=== PATIENT | male | born 1995 | race Caucasian/White ===

== ENCOUNTER 2017-02-05 22:07 | Emergency (ER) | payer MEDICARE, MEDICAID ==
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
[2017-02-05 22:28] VITALS: BP 163/90
[2017-02-05] MEDS ORDERED: Ibuprofen 600 MG Tab PO ONE (22:40)
== END 2017-02-05 23:00 | disposition home or self-care (01) ==
LOC: LL.ED 22:07
DX: H66.92 Otitis media, unspecified, left ear (principal); H72.02 Central perforation of tympanic membrane, left ear; E66.09 Other obesity due to excess calories; E03.9 Hypothyroidism, unspecified; F84.0 Autistic disorder; F41.8 Other specified anxiety disorders; F17.210 Nicotine dependence, cigarettes, uncomplicated; Z71.6 Tobacco abuse counseling; Z98.890 Other specified postprocedural states; Z79.899 Other long term (current) drug therapy; Z88.5 Allergy status to narcotic agent; Z88.8 Allergy status to other drugs, medicaments and biological substances
CPT/HCPCS: 99282; 99283; A9270

== ENCOUNTER 2017-04-12 17:02 | Emergency (ER) | payer MEDICARE, MEDICAID ==
[2017-04-12 17:19] VITALS: BP 145/93
--- NOTE | 2017-04-12 17:46 | EDM.PDOC ---
ED HPI GENERAL MEDICAL PROBLEM - General Chief Complaint: General Stated Complaint: diaphoretic and dizzy after eating pizza Time Seen by Provider: 04/12/17 17:17 Source of Information: Reports: Patient, Family History Limitations: Reports: No Limitations - History of Present Illness INITIAL COMMENTS - FREE TEXT/NARRATIVE: Patient complained of feeling hot/sweaty, dizzy after going out for walk (82 degrees outside) and included hill work. Also had pizza around this time. Said he was not feeling good. Parents brought him in for evaluation. Patient has history that includes autism, obesity, and emotional problems. Has had panic attacks in past. He is not certain, but feels that there may have been some panic involved with this afternoon's episode. He was roomed and had a chance to lay down in the bed and rest for awhile prior to evaluation. By the time I was able to interview him, he pronounced himself better and said all symptoms had resolved. He attributed feeling better to getting a chance to rest for a bit in the bed. Patient at this time had no complaints. He remarked that he thought he got overheated outside, especially with trying to walk up the hills. Bilateral Leg Pain Score (Numeric/FACES): 3 - Related Data Allergies Allergy/AdvReac Type Severity Reaction Status Date / Time cefazolin sodium [From [facility]] Allergy Rash Verified 04/12/17 17:03 codeine Allergy Hyperactivi Verified 04/12/17 17:03 ty Home Meds: Home Meds RX: Levothyroxine [Synthroid] 50 mcg PO ACBRK #30 tab 01/29/14 [Rx] RX: Prazosin [Minpress] 1 mg PO BEDTIME PRN 01/29/14 [History] RX: Escitalopram [Lexapro] 20 mg PO DAILY 02/05/17 [History] RX: LORazepam 0.5 mg PO ASDIRECTED PRN 02/05/17 [History] RX: Pediatric Multivit Comb No.136 [Children Multivitamin] 1 tab PO DAILY [History] Past Medical History HEENT History: Reports: Otitis Media, Other (See Below) Other HEENT History: Chronic recurrent bilateral otitis media with history of chronic left-sided TM perforation Cardiovascular History: Reports: Other (See Below) Other Cardiovascular History: Obesity with fatty liver Gastrointestinal History: Reports: Cholelithiasis, Other (See Below) Other Gastrointestinal History: Fatty liver by ultrasound, nonsymptomatic cholelithiasis/sludge Musculoskeletal History: Reports: Arthritis Neurological History: Reports: Headaches, Chronic, Other (See Below) Other Neuro History: Chronic tension headaches Psychiatric History: Reports: ADHD, Anxiety, Autism, Depression, Emotional Problems, Other (See Below) Other Psychiatric History: Autism with mental deficits/mild retardation Endocrine/Metabolic History: Reports: Hypothyroidism, Obesity/BMI 30+ - Past Surgical History HEENT Surgical History: Reports: Adenoidectomy, Eye Surgery, Myringotomy w Tube( s), Naso-Sinus Surgery, Tonsillectomy, Other (See Below) Other HEENT Surgeries/Procedures: Chronic left-sided TM perforation with recurrent otitis media including borderline sepsis, bilateral PE tubes, tonsillectomy and adenoidectomy in latexer, nasal/sinus surgery with possible cauterization secondary to snoring in latexer, strabismus correction in latexer Cardiovascular Surgical History: Reports: None - Past Imaging History Past Imaging History: Reports: Ultrasound (Abdominal ultrasound on 07/23/15) Social & Family History - Tobacco Use Smoking Status *Q: Current Every Day Smoker Years of Tobacco use: 4 Packs/Tins Daily: 1 Used Tobacco, but Quit: No Second Hand Smoke Exposure: Yes - Caffeine Use Caffeine Use: Reports: Soda Caffeine Use Comment: soda - Alcohol Use Days Per Week of Alcohol Use: 1 Number of Drinks Per Day: 0 Total Drinks Per Week: 0 - Recreational Drug Use Recreational Drug Use: No Drug Use in Last 12 Months: No ED ROS GENERAL - Review of Systems Review Of Systems: See Below Constitutional: Reports: Diaphoresis (resolved), Other (felt hot). Denies: Fever, Chills, Malaise, Weakness, Fatigue, Night Sweats, Decreased Appetite, Weight Loss, Weight Gain HEENT: Reports: No Symptoms Respiratory: Reports: No Symptoms Cardiovascular: Reports: Lightheadedness. Denies: Chest Pain, Dyspnea on Exertion, Edema, Palpitations, Syncope GI/Abdominal: Reports: No Symptoms. Denies: Nausea, Vomiting : Reports: No Symptoms Musculoskeletal: Reports: Leg Pain (mild bilateral leg discomfort) Skin: Reports: No Symptoms Neurological: Reports: Dizziness. Denies: Confusion, Headache, Numbness, Paresthesia, Syncope, Trouble Speaking, Difficulty Walking, Weakness Psychiatric: Reports: Anxiety (when not feeling well) Hematologic/Lymphatic: Reports: No Symptoms ED EXAM, GENERAL - Physical Exam Exam: See Below Exam Limited By: No Limitations General Appearance: Alert, No Apparent Distress, Obese Eye Exam: Bilateral Eye: EOMI, PERRL Ears: Normal External Exam, Normal Canal, Hearing Grossly Normal, Normal TMs Nose: Normal Inspection, Normal Mucosa, No Blood Throat/Mouth: Normal Inspection, Normal Lips, Normal Teeth, Normal Oropharynx, Normal Voice, No Airway Compromise Head: Atraumatic, Normocephalic Neck: Normal Inspection, Supple, Non-Tender, Full Range of Motion Respiratory/Chest: No Respiratory Distress, Lungs Clear, Normal Breath Sounds, No Accessory Muscle Use, Chest Non-Tender Cardiovascular: Normal Peripheral Pulses, Regular Rate, Rhythm, No Edema, No JVD , No Murmur, No Rub Peripheral Pulses: 2+: Radial (L), Radial (R) GI/Abdominal: Normal Bowel Sounds, Soft, Non-Tender, No Distention (Male) Exam: Deferred Rectal (Males) Exam: Deferred Back Exam: Normal Inspection Extremities: Normal Inspection, Normal Range of Motion, Non-Tender, Normal Capillary Refill Neurological: Alert, Oriented, Normal Cognition, Normal Gait, No Motor/Sensory Deficits Psychiatric: Normal Affect, Normal Mood Skin Exam: Warm, Dry, Intact, Normal Color Course - Vital Signs Last Recorded V/S: Last Vital Signs Temp 37.0 C 04/12/17 17:04 Pulse 98 04/12/17 17:19 Resp 20 04/12/17 17:19 BP 145/93 H 04/12/17 17:19 Pulse Ox 97 04/12/17 17:19 - Re-Assessments/Exams Free Text/Narrative Re-Assessment/Exam: Normal exam. No focal findings. Patient continued to say that he felt well and that he wished to go home. Episode may have been due to excessive walking/exercise in the heat. Cannot rule out early prodrome for an illness such as viral infection. Anxiety may have been a component. Parents agree to follow up as needed if they notice any concerning changes or new symptoms. No further intervention at this time. Departure - Departure Time of Disposition: 17:45 Disposition: Home, Self-Care 01 Condition: Good Clinical Impression: Anxiety - Discharge Information Referrals: Alida Castellanos NP [Primary Care Provider] - Forms: ED Department Discharge Additional Instructions: Follow up as needed. Drink plenty of water at home and stay cool for the rest of the day!
== END 2017-04-12 17:52 | disposition home or self-care (01) ==
LOC: SUPCPDRO 17:02 → LL.ED 17:02
DX: F41.9 Anxiety disorder, unspecified (principal); F17.210 Nicotine dependence, cigarettes, uncomplicated; M19.90 Unspecified osteoarthritis, unspecified site; F90.9 Attention-deficit hyperactivity disorder, unspecified type; F32.9 Major depressive disorder, single episode, unspecified; E03.9 Hypothyroidism, unspecified; E66.9 Obesity, unspecified; Z88.5 Allergy status to narcotic agent; Z88.8 Allergy status to other drugs, medicaments and biological substances; Z90.89 Acquired absence of other organs; Z96.22 Myringotomy tube(s) status
CPT/HCPCS: 99283

== ENCOUNTER 2017-05-20 03:21 | Emergency (ER) | payer MEDICARE, MEDICAID ==
--- NOTE | 2017-05-20 03:50 | EDM.PDOC ---
ED HPI GENERAL MEDICAL PROBLEM - General Chief Complaint: General Stated Complaint: shortness of breath, chest pain, cough Time Seen by Provider: 05/20/17 03:45 Source of Information: Reports: Patient, Family (Mother), Old Records ([facility] chart/EMR) History Limitations: Reports: Altered Mental Status (Autism) - History of Present Illness INITIAL COMMENTS - FREE TEXT/NARRATIVE: Patient was brought to the emergency room via private automobile by his mother for evaluation of progressive moderately clear productive cough with symptoms starting at about 1 AM on 05/18. He denies any known exposure to infection, however has not yet had his influenza booster this season. Symptoms have been refractory to multiple OTC medications, including cough medicine, decongestant, and Chloraseptic [place]. He has had some mild sore throat. No history of previous pulmonary problems, including asthma, etc. and he denies any recent history of wheezing, dyspnea, etc. No recent history of abdominal pain, heartburn, nausea, diarrhea, melena, gross hematochezia, or any food intolerance , including fatty foods, etc.. He has had some nonspecific right-sided chest wall pain mainly with coughing but no true pleurisy Onset: Gradual Onset Date: 05/18/17 Duration: Constant, Getting Worse Location: Reports: Chest (Chest wall pain as above) Quality: Reports: Sharp Severity: Severe Improves with: Reports: Rest Worsens with: Reports: Movement (Coughing) Context: Reports: Other (As above). Denies: Sick Contact Associated Symptoms: Reports: Chest Pain (As above), Cough (As above), cough w sputum (Clear). 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 Denies: Acetaminophen, NSAIDS ( As above) chest pain Pain Score (Numeric/FACES): 10 - Related Data Allergies Allergy/AdvReac Type Severity Reaction Status Date / Time cefazolin sodium [From Anc] Allergy Rash Verified 05/20/17 03:24 codeine Allergy Hyperactivi Verified 05/20/17 03:24 ty Home Meds: Home Meds Levothyroxine [Synthroid] 50 mcg PO ACBRK #30 tab 01/29/14 [Rx] Prazosin [Minpress] 1 mg PO BEDTIME PRN 01/29/14 [History] Escitalopram [Lexapro] 20 mg PO DAILY 02/05/17 [History] LORazepam 0.5 mg PO ASDIRECTED PRN 02/05/17 [History] Pediatric Multivit Comb No.136 [Children Multivitamin] 1 tab PO DAILY 02/05/17 [ History] Amoxicillin/Potassium Clav [Augmentin 875-125 Tablet] 1 each PO BIDMEALS #20 tablet 05/20/17 [Rx] Dextromethorphan/guaiFENesin [Mucinex DM ER 600-30 MG] 1 tab PO BID #20 tab.er 05/20/17 [Rx] Naproxen 500 mg PO Q6HR PRN 05/20/17 [History] Pseudoephedrine HCl [Nasal Decongestant] 30 mg PO BID PRN 05/20/17 [History] Past Medical History HEENT History: Reports: Allergic Rhinitis, Hard of Hearing, Otitis Media, Other (See Below). Denies: Retinal Detachment Other HEENT History: Chronic recurrent bilateral otitis media with history of chronic left-sided TM perforation with sensitivity to loud noises and some left- sided hearing loss however no hearing aide therapy, left-sided mastoiditis on 29/06 with no surgery required Cardiovascular History: Reports: None. Denies: Aneurysm, Arrhythmia, Blood Clots/VTE/DVT, High Cholesterol, Hypertension, Syncope Other Cardiovascular History: Obesity with fatty liver Respiratory History: Reports: None. Denies: Asthma, Bronchitis, Recurrent, COPD , Intubation, Previous, PE, Pneumonia, Recurrent, Pneumothorax, Sleep Apnea Gastrointestinal History: Reports: Cholelithiasis, Other (See Below). Denies: Celiac Disease, Chronic Constipation, Chronic Diarrhea, Fecal Incontinence, Gastritis, GERD, GI Bleed, Hepatitis, Hiatal Hernia, Jaundice, Pancreatitis, PUD Other Gastrointestinal History: Fatty liver by ultrasound, nonsymptomatic cholelithiasis/sludge Genitourinary History: Reports: None. Denies: Acute Renal Failure, BPH, Chronic Renal Insuffiency, Renal Calculus, STD, Urinary Incontinence Musculoskeletal History: Reports: Arthritis, Fracture, Gout, Other (See Below). Denies: Back Pain, Chronic, Osteoarthritis, RA, SLE Other Musculoskeletal History: Right fifth metatarsal fracture on 01/11/10 Neurological History: Reports: Headaches, Chronic, Other (See Below). Denies: Cerebral Aneurysms, Concussion, Head Trauma, Migraines, Neuropathy, Peripheral, Seizure, Speech Problems, TIA Other Neuro History: Chronic tension headaches, autism Psychiatric History: Reports: ADHD, Anxiety, Autism, Depression, Emotional Problems, Psych Hospitalization(s), Suicide Attempt, Suicidal Ideation, Other ( See Below). Denies: Abuse, Victim of, Addiction, PTSD Other Psychiatric History: Autism with mental deficits/mild retardation, prazosin therapy for nightmares seldom required; history of suicidal ideation and attempt on 09/29/11 with inpatient psychiatric care Endocrine/Metabolic History: Reports: Hypothyroidism, Obesity/BMI 30+. Denies: Diabetes, Type I, Diabetes, Type II, IDDM Hematologic History: Reports: None. Denies: Anemia, Blood Transfusion(s), Iron Deficiency Immunologic History: Reports: None. Denies: AIDS, HIV, SLE Oncologic (Cancer) History: Reports: None. Denies: Basal Cell Carcinoma, Hodgkin's Lymphoma, Leukemia, Lymphoma, Malignant Melanoma, Non-Hodgkin's Lymphoma, Squamous Cell Carcinoma Dermatologic History: Reports: None. Denies: Eczema, Psoriasis - Infectious Disease History Infectious Disease History: Reports: Chicken Pox. Denies: C-Difficile, Measles , Meningitis, Mononucleosis, MRSA, Mumps, Pertussis (Whooping Cough), Rheumatic Fever, RSV, Rubella, Scarlet Fever, Shingles, VRE - Past Surgical History Head Surgeries/Procedures: Reports: None HEENT Surgical History: Reports: Adenoidectomy, Eye Surgery, Myringotomy w Tube( s), Naso-Sinus Surgery, Oral Surgery, Tonsillectomy, Other (See Below). Denies : Laser Surgery, LASIK Other HEENT Surgeries/Procedures: Chronic left-sided TM perforation with recurrent otitis media including borderline sepsis, bilateral PE tubes 3 in bonsai tender, tonsillectomy and adenoidectomy in bonsai tender, nasal/ sinus surgery with possible cauterization secondary to snoring in bonsai tender, strabismus correction in bonsai tender, [place] teeth extraction Cardiovascular Surgical History: Reports: None. Denies: Varicose Respiratory Surgical History: Reports: None. Denies: Thoracentesis GI Surgical History: Reports: None. Denies: Appendectomy, Cholecystectomy, Hernia, Abdominal, Hernia, Inguinal, Hernia Repair/Other Male Surgical History: Reports: Circumcision, Other (See Below). Denies: Vasectomy Other Male Surgeries/Procedures: Circumcision as an Endocrine Surgical History: Reports: None. Denies: Thyroid Biopsy Neurological Surgical History: Reports: None. Denies: C-Spine, Discectomy, Laminectomy, Lumbar Spine, Spinal Fusion, Vertebroplasty Musculoskeletal Surgical History: Denies: Arthroscopic Procedure, Carpal Tunnel , Ganglion Cyst, Joint Replacement, ORIF, Shoulder Surgery Oncologic Surgical History: Reports: None Dermatological Surgical History: Reports: None - Past Imaging History Past Imaging History: Reports: CAT Scan (CT of the maxillofacial region on , CTA of the brain on 08/06/11), Ultrasound (Abdominal ultrasound on 07/23/15, renal ultrasound on 11/29/10) Social & Family History - Tobacco Use Smoking Status *Q: Current Every Day Smoker Years of Tobacco use: 4 Packs/Tins Daily: 1 Used Tobacco, but Quit: No Second Hand Smoke Exposure: Yes - Caffeine Use Caffeine Use: Reports: Soda (3 sodas per day). Denies: Coffee, Energy Drinks, Tea, Other - Alcohol Use Alcohol Use History: No Days Per Week of Alcohol Use: 0 (No previous DWIs, problems with alcohol abuse, etc.) Number of Drinks Per Day: 1 Total Drinks Per Week: 0 Alcohol Use Frequency: Rarely - Recreational Drug Use Recreational Drug Use: No Drug Use in Last 12 Months: No Recreational Drug Type: Denies: Amphetamines (Speed), Cocaine, Heroin, Inhalants (Glues, Solvents, Aerosols), LSD (Acid), Marijuana/Hashish, Methamphetamine - Living Situation & Occupation Living situation: Reports: Single (No children), Alone Occupation: Employed (Part-time at [employer]) ED ROS GENERAL - Review of Systems Review Of Systems: See Below Constitutional: Denies: Fever, Chills, Weakness, Fatigue, Night Sweats, Diaphoresis, Decreased Appetite, Weight Loss HEENT: Reports: Glasses, Rhinitis, Sinus Problem, Throat Pain. Denies: Contact Lenses, Ear Pain, Eye Discharge, Eye Pain, Hearing Loss, Throat Swelling, Vertigo, Vision Change Respiratory: Reports: Cough, Sputum (Mild clear), Other (Right chest wall pain with coughing). Denies: Shortness of Breath, Wheezing, Pleuritic Chest Pain, Hemoptysis Cardiovascular: Reports: Chest Pain (As above). Denies: Blood Pressure Problem , Claudication, Dyspnea on Exertion, Edema, Lightheadedness, Orthopnea, Palpitations, PND, Syncope Endocrine: Reports: No Symptoms. Denies: Fatigue GI/Abdominal: Reports: No Symptoms. Denies: Abdominal Pain, Anorexia, Black Stool, Bloody Stool, Constipation, Diarrhea, Decreased Appetite, Difficulty Swallowing, Distension, Hematemesis, Hematochezia, Melena, Mucous in Stool, Nausea, Stool Incontinence, Vomiting : Reports: No Symptoms. Denies: Dysuria, Flank Pain, Frequency, Hematuria, Incontinence, Urgency Musculoskeletal: Reports: No Symptoms. Denies: Neck Pain, Shoulder Pain, Arm Pain, Back Pain, Leg Pain Skin: Reports: No Symptoms. Denies: Diaphoresis, Wound Neurological: Reports: No Symptoms. Denies: Confusion, Dizziness, Headache, Numbness, Paresthesia, Tingling, Weakness Psychiatric: Reports: No Symptoms. Denies: Agitation, Anxiety, Confusion, Depression Hematologic/Lymphatic: Reports: No Symptoms Immunologic: Reports: No Symptoms ED EXAM, GENERAL - Physical Exam Exam: See Below Exam Limited By: No Limitations General Appearance: Alert, WD/WN, No Apparent Distress, Anxious (Mild) Eye Exam: Bilateral Eye: EOMI, Normal Inspection (No nystagmus), PERRL Ears: Normal External Exam, Normal Canal, Hearing Grossly Normal, Other (4 mm inferior left-sided TM perforation) Nose: Normal Mucosa, No Blood, Clear Rhinorrhea (Mild bilateral) Throat/Mouth: Normal Lips, Normal Teeth, Normal Gums, Normal Voice, No Airway Compromise. No: Normal Oropharynx (Trace erythema in the posterior pharynx), Dysphagia, Inflammation, Perioral Cyanosis Neck: Normal Inspection, Supple, Non-Tender, Full Range of Motion. No: Lymphadenopathy (L), Lymphadenopathy (R), Thyromegaly Respiratory/Chest: No Respiratory Distress, Lungs Clear, Normal Breath Sounds, No Accessory Muscle Use, Chest Non-Tender. No: Rhonchi, Wheezing, Pleural Rub, Retractions Cardiovascular: Normal Peripheral Pulses, Regular Rate, Rhythm, No Edema, No Gallop, No JVD, No Murmur, No Rub, Tachycardia (Occasional borderline especially when coughing). No: Gallop/S3, Gallop/S4, Friction Rub Peripheral Pulses: 2+: Radial (L), Radial (R) GI/Abdominal: Normal Bowel Sounds, Soft, Non-Tender, No Organomegaly, No Distention, No Abnormal Bruit, No Mass, Other (obesity) (Male) Exam: Deferred Rectal (Males) Exam: Deferred Back Exam: Normal Inspection, Full Range of Motion. No: CVA Tenderness (L), CVA Tenderness (R), Muscle Spasm Extremities: Normal Inspection, Normal Range of Motion, Non-Tender, No Pedal Edema, Normal Capillary Refill. No: Kaylynn's Sign Neurological: Alert, Oriented, CN II-XII Intact, Normal Cognition, Normal Gait, No Motor/Sensory Deficits Psychiatric: Normal Affect, Normal Mood Skin Exam: Warm, Dry, Intact, Normal Color, No Rash. No: Diaphoretic, Wound/ Incision Lymphatic: No Adenopathy Course - Vital Signs Last Recorded V/S: Last Vital Signs Temp 36.7 C 05/20/17 03:30 Pulse 87 05/20/17 04:49 Resp 21 H 05/20/17 04:49 BP 121/72 05/20/17 04:49 Pulse Ox 95 05/20/17 04:49 Vital Signs - 24 hr 05/20/17 05/20/17 05/20/17 03:30 03:45 03:57 Temperature [ 36.7 C Oral] Pulse, 90 98 100 Peripheral [ Right Pulse Oximetry] Respiratory 15 20 19 Rate Blood Pressure 138/78 123/70 139/71 [Right Upper Arm] O2 Sat by Pulse 95 94 L 95 Oximetry 05/20/17 05/20/17 05/20/17 04:17 04:25 04:49 Temperature [ Oral] Pulse, 92 88 87 Peripheral [ Right Pulse Oximetry] Respiratory 17 21 H 21 H Rate Blood Pressure 124/76 121/67 121/72 [Right Upper Arm] O2 Sat by Pulse 94 L 96 95 Oximetry - Orders/Labs/Meds Orders: Active Orders 24 hr Category Date Time Status Cardiac Monitoring [RC] . DIRECTED Care 05/20/17 03:45 Active Chest 2V [CR] Urgent Exams 05/20/17 03:52 Ordered CULTURE STREP A CONFIRMATION [RM] Stat Lab 05/20/17 03:49 Results STREP SCRN A RAPID W CULT CONF [RM] Stat Lab 05/20/17 03:49 Results Obtain Past Medical Record [OM.PC] Routine Oth 05/20/17 03:50 Active Labs: Laboratory Tests 05/20/17 05/20/17 Range/Units 04:10 04:10 WBC 13.7 H (4.0-10.2) K/uL RBC 5.36 (4.33-5.41) M/uL Hgb 14.6 D (13.1-16.8) g/dL Hct 43.1 (39.0-49.0) % MCV 80.4 L D (84.0-98.0) fL MCH 27.2 L (28.2-33.3) pg MCHC 33.9 (31.7-36.0) g/dL RDW 15.4 H (11.2-14.1) % Plt Count 200 (150-350) K/uL Neut % (Auto) 74.3 (45.0-80.0) % Lymph % (Auto) 17.5 (10.0-50.0) % Nuckolls % (Auto) 5.8 (2.0-14.0) % Eos % (Auto) 2.1 (0.0-5.0) % Baso % (Auto) 0.3 (0.0-2.0) % Neut # (Auto) 10.15 H (1.40-7.00) K/uL Lymph # (Auto) 2.40 (0.50-3.50) K/uL Nuckolls # (Auto) 0.80 (0.00-1.00) K/uL Eos # (Auto) 0.29 (0.00-0.50) K/uL Baso # (Auto) 0.04 (0.00-0.20) K/uL Sodium 139 (136-145) mmol/L Potassium 4.1 (3.5-5.1) mmol/L Chloride 103 (98-107) mmol/L Carbon Dioxide 26.6 (21.0-32.0) mmol/L BUN 13 (7-18) mg/dL Creatinine 0.75 (0.51-1.17) mg/dL Est Cr Clr Drug Dosing 134.39 mL/min Estimated GFR (MDRD) > 60 mL/min Glucose 117 H (74-106) mg/dL Calcium 9.4 (8.5-10.1) mg/dL Total Bilirubin 0.6 (0.2-1.0) mg/dL AST 23 (15-37) U/L ALT 48 (12-78) U/L Alkaline Phosphatase 98 (46-116) IU/L Total Protein 7.2 (6.4-8.2) g/dL Albumin 3.6 (3.4-5.0) g/dL Microbiology 05/20/17 03:38 Influenza Type A Antigen Screen - Final Nasopharyngeal Swab - Nare, Right NEGATIVE INFLUENZA A VIRUS AG Influenza Type B Antigen Screen - Final NEGATIVE INFLUENZA B VIRUS AG 05/20/17 03:49 Group A Streptococcus Rapid Screen - Final Throat NEGATIVE STREP A SCREEN Meds: Medications Discontinued Medications Generic Name Dose Route Start Last Admin Trade Name Freq PRN Reason Stop Dose Admin Amoxicillin/Clavulanate Potassium 1 tab 05/20/17 04:42 05/20/17 04:47 Augmentin 875 Mg/125 Mg PO 05/20/17 04:43 1 tab ONETIME ONE Administration - Radiology Interpretation Free Text/Narrative:: alarm security or surveillance monitor shows sinus rhythm in the high 90s with occasional mild sinus tachycardia in the 100s with no ectopy or arrhythmia Chest x-ray, PA and lateral, shows poor inspiratory film with no pulmonary infiltrates, cardiomegaly, CHF, pneumothorax, etc. Departure - Departure Time of Disposition: 05:00 Disposition: Home, Self-Care 01 Clinical Impression: Tobacco abuse counseling, Mixed anxiety depressive disorder, Autism, Hypothyroidism, Bronchitis Obesity Qualifiers: Obesity type: due to excess calories Obesity classification: unspecified obesity classification Serious obesity comorbidity presence: without serious comorbidity Qualified Code(s): E66.09 - Other obesity due to excess calories - Discharge Information Prescriptions: Amoxicillin/Potassium Clav [Augmentin 875-125 Tablet] 1 each PO BIDMEALS #20 tablet Dextromethorphan/guaiFENesin [Mucinex DM ER 600-30 MG] 1 tab PO BID #20 tab.er Instructions: Dextromethorphan; Guaifenesin tablets, Amoxicillin; Clavulanic Acid tablets, Acute Bronchitis, Keso-dw-Typs Referrals: Alida Castellanos NP [Primary Care Provider] - Forms: ED Department Discharge, ED Return to Work/School Form Additional Instructions: 1. Followup with your regular provider in 10-14 days as directed for reevaluation and recommended repeat CBC. 2. Tylenol 650 mg by mouth every 4 hours when necessary as directed. This may be taken concurrently with your naproxen on a short-term basis 3. Work excuse- See Form 4. Hygiene issues as discussed 5. Stop all tobacco use ESTIVEN as directed/per provided information and consider contacting [facility]uit [facility]ne, etc.. - Problem List & Annotations (1) Bronchitis SNOMED Code(s): 48269845 Code(s): J40 - BRONCHITIS, NOT SPECIFIED ACUTE OR CHRONIC Status: Acute Priority: High Onset Date: ~05/18/17 Annotation/Comment:: Despite previous allergy to Ancef patient has tolerated amoxicillin well in the past per their history. Initial dose of Augmentin given in the emergency room. Hygiene issues were discussed. Work excuse provided (2) Autism SNOMED Code(s): 614306600 Code(s): F84.0 - AUTISTIC DISORDER Status: Chronic Priority: Medium Annotation/Comment:: Stable by history (3) Hypothyroidism SNOMED Code(s): 43007589 Code(s): E03.9 - HYPOTHYROIDISM, UNSPECIFIED Status: Chronic Priority: Medium Annotation/Comment:: Currently under therapy (4) Mixed anxiety depressive disorder SNOMED Code(s): 235678255 Code(s): F41.8 - OTHER SPECIFIED ANXIETY DISORDERS Status: Chronic Priority: Medium Annotation/Comment:: Stable by history (5) Obesity SNOMED Code(s): 716973429 Code(s): E66.9 - OBESITY, UNSPECIFIED Status: Chronic Priority: Medium Annotation/Comment:: Weight loss in moderation advisable Qualifiers: Obesity type: due to excess calories Obesity classification: unspecified obesity classification Serious obesity comorbidity presence: without serious comorbidity Qualified Code(s): E66.09 - Other obesity due to excess calories (6) Tobacco abuse counseling SNOMED Code(s): 748644133, 590267039 Code(s): Z71.6 - TOBACCO ABUSE COUNSELING Status: Chronic Priority: Medium Annotation/Comment:: Tobacco cessation strongly encouraged with information provided at discharge. He is resistant to tobacco cessation, however. - Problem List Review Problem List Initiated/Reviewed/Updated: Yes - My Orders Last 24 Hours: My Active Orders 05/20/17 03:45 Cardiac Monitoring [RC] . DIRECTED 05/20/17 03:49 CULTURE STREP A CONFIRMATION [RM] Stat STREP SCRN A RAPID W CULT CONF [RM] Stat 05/20/17 03:50 Obtain Past Medical Record [OM.PC] Routine 05/20/17 03:52 Chest 2V [CR] Urgent - Assessment/Plan Last 24 Hours: My Active Orders 05/20/17 03:45 Cardiac Monitoring [RC] . DIRECTED 05/20/17 03:49 CULTURE STREP A CONFIRMATION [RM] Stat STREP SCRN A RAPID W CULT CONF [RM] Stat 05/20/17 03:50 Obtain Past Medical Record [OM.PC] Routine 05/20/17 03:52 Chest 2V [CR] Urgent Assessment:: As above Plan: As above. Extensive precautions were given to the patient and his mother, who are in agreement with the treatment plan. See Patient Instructions for further treatment and plan.
[2017-05-20 04:35] LABS: CHLORIDE,CL 103 mmol/L (98-107); SODIUM,NA 139 mmol/L (136-145)
[2017-05-20] MEDS ORDERED: Amoxicillin/Clavulanate K 875-125 MG Tab PO ONE (04:42)
[2017-05-20 04:49] VITALS: BP 121/72
== END 2017-05-20 05:00 | disposition home or self-care (01) ==
LOC: LL.ED 03:21
DX: J40 Bronchitis, not specified as acute or chronic (principal); F41.8 Other specified anxiety disorders; E03.9 Hypothyroidism, unspecified; F84.0 Autistic disorder; E66.09 Other obesity due to excess calories; Z71.6 Tobacco abuse counseling; F17.210 Nicotine dependence, cigarettes, uncomplicated; Z98.890 Other specified postprocedural states; Z79.899 Other long term (current) drug therapy; Z88.5 Allergy status to narcotic agent; Z88.0 Allergy status to penicillin
CPT/HCPCS: 36415; 71020; 80053; 85025; 87081; 87430; 87804; 99283; 99285; A9270

== ENCOUNTER 2017-09-06 22:48 | Emergency (ER) | payer MEDICARE, MEDICAID ==
[2017-09-06 22:58] VITALS: BP 130/83
--- NOTE | 2017-09-06 23:36 | EDM.PDOC ---
ED HPI GENERAL MEDICAL PROBLEM - General Chief Complaint: General Stated Complaint: body aches Time Seen by Provider: 09/06/17 22:55 Source of Information: Reports: Patient, Family (Mother) History Limitations: Reports: Altered Mental Status - History of Present Illness INITIAL COMMENTS - FREE TEXT/NARRATIVE: Patient is a 22-year-old who lives in a who lives on own who gets support from [employer] states that his support system has been ill with influenza and now he has generalized body aches but no fever Onset: Today Duration: Getting Worse Location: Reports: Generalized Quality: Reports: Ache Severity: Moderate Improves with: Reports: Medication (Muscle relaxers) Worsens with: Reports: None Context: Reports: Other (Illness) Associated Symptoms: Reports: Cough, Other (Headache) Generalized Pain Score (Numeric/FACES): 10 - Related Data Allergies Allergy/AdvReac Type Severity Reaction Status Date / Time cefazolin sodium [From [facility]] Allergy Rash Verified 09/06/17 22:50 codeine Allergy Hyperactivi Verified 09/06/17 22:50 ty Home Meds: Home Meds Levothyroxine [Synthroid] 50 mcg PO ACBRK #30 tab 01/29/14 [Rx] Prazosin [Minpress] 1 mg PO BEDTIME PRN 01/29/14 [History] Escitalopram [Lexapro] 20 mg PO DAILY 02/05/17 [History] LORazepam 0.5 mg PO ASDIRECTED PRN 02/05/17 [History] Pediatric Multivit Comb No.136 [Children Multivitamin] 1 tab PO DAILY 02/05/17 [ History] Naproxen 500 mg PO Q6HR PRN 05/20/17 [History] Cyclobenzaprine [Flexeril] 5 mg PO DAILY PRN 09/06/17 [History] Vit C/Stahl & Celery Ex/Grp E [Tart Stahl] 2 tab PO DAILY 09/06/17 [History] Past Medical History HEENT History: Reports: Allergic Rhinitis, Hard of Hearing, Otitis Media, Other (See Below). Denies: Retinal Detachment Other HEENT History: Chronic recurrent bilateral otitis media with history of chronic left-sided TM perforation with sensitivity to loud noises and some left- sided hearing loss however no hearing aide therapy, left-sided mastoiditis on 29/06 with no surgery required Cardiovascular History: Reports: None. Denies: Aneurysm, Arrhythmia, Blood Clots/VTE/DVT, High Cholesterol, Hypertension, Syncope Other Cardiovascular History: Obesity with fatty liver Respiratory History: Reports: None. Denies: Asthma, Bronchitis, Recurrent, COPD , Intubation, Previous, PE, Pneumonia, Recurrent, Pneumothorax, Sleep Apnea Gastrointestinal History: Reports: Cholelithiasis, Other (See Below). Denies: Celiac Disease, Chronic Constipation, Chronic Diarrhea, Fecal Incontinence, Gastritis, GERD, GI Bleed, Hepatitis, Hiatal Hernia, Jaundice, Pancreatitis, PUD Other Gastrointestinal History: Fatty liver by ultrasound, nonsymptomatic cholelithiasis/sludge Genitourinary History: Reports: None. Denies: Acute Renal Failure, BPH, Chronic Renal Insuffiency, Renal Calculus, STD, Urinary Incontinence Musculoskeletal History: Reports: Arthritis, Fracture, Gout, Other (See Below). Denies: Back Pain, Chronic, Osteoarthritis, RA, SLE Other Musculoskeletal History: Right fifth metatarsal fracture on 01/11/10 Neurological History: Reports: Headaches, Chronic, Other (See Below). Denies: Cerebral Aneurysms, Concussion, Head Trauma, Migraines, Neuropathy, Peripheral, Seizure, Speech Problems, TIA Other Neuro History: Chronic tension headaches, autism Psychiatric History: Reports: ADHD, Anxiety, Autism, Depression, Emotional Problems, Psych Hospitalization(s), Suicide Attempt, Suicidal Ideation, Other ( See Below). Denies: Abuse, Victim of, Addiction, PTSD Other Psychiatric History: Autism with mental deficits/mild retardation, prazosin therapy for nightmares seldom required; history of suicidal ideation and attempt on 09/29/11 with inpatient psychiatric care Endocrine/Metabolic History: Reports: Hypothyroidism, Obesity/BMI 30+. Denies: Diabetes, Type I, Diabetes, Type II, IDDM Hematologic History: Reports: None. Denies: Anemia, Blood Transfusion(s), Iron Deficiency Immunologic History: Reports: None. Denies: AIDS, HIV, SLE Oncologic (Cancer) History: Reports: None. Denies: Basal Cell Carcinoma, Hodgkin's Lymphoma, Leukemia, Lymphoma, Malignant Melanoma, Non-Hodgkin's Lymphoma, Squamous Cell Carcinoma Dermatologic History: Reports: None. Denies: Eczema, Psoriasis - Infectious Disease History Infectious Disease History: Reports: Chicken Pox. Denies: C-Difficile, Measles , Meningitis, Mononucleosis, MRSA, Mumps, Pertussis (Whooping Cough), Rheumatic Fever, RSV, Rubella, Scarlet Fever, Shingles, VRE - Past Surgical History Head Surgeries/Procedures: Reports: None HEENT Surgical History: Reports: Adenoidectomy, Eye Surgery, Myringotomy w Tube( s), Naso-Sinus Surgery, Oral Surgery, Tonsillectomy, Other (See Below). Denies : Laser Surgery, LASIK Other HEENT Surgeries/Procedures: Chronic left-sided TM perforation with recurrent otitis media including borderline sepsis, bilateral PE tubes 3 in puff ironer, tonsillectomy and adenoidectomy in puff ironer, nasal/ sinus surgery with possible cauterization secondary to snoring in puff ironer, strabismus correction in puff ironer, [place] teeth extraction Cardiovascular Surgical History: Reports: None. Denies: Varicose Respiratory Surgical History: Reports: None. Denies: Thoracentesis GI Surgical History: Reports: None. Denies: Appendectomy, Cholecystectomy, Hernia, Abdominal, Hernia, Inguinal, Hernia Repair/Other Male Surgical History: Reports: Circumcision, Other (See Below). Denies: Vasectomy Other Male Surgeries/Procedures: Circumcision as an Endocrine Surgical History: Reports: None. Denies: Thyroid Biopsy Neurological Surgical History: Reports: None. Denies: C-Spine, Discectomy, Laminectomy, Lumbar Spine, Spinal Fusion, Vertebroplasty Oncologic Surgical History: Reports: None Dermatological Surgical History: Reports: None - Past Imaging History Past Imaging History: Reports: CAT Scan (CT of the maxillofacial region on , CTA of the brain on 08/06/11), Ultrasound (Abdominal ultrasound on 07/23/15, renal ultrasound on 11/29/10) Social & Family History - Tobacco Use Smoking Status *Q: Current Every Day Smoker Years of Tobacco use: 4 Packs/Tins Daily: 1 Used Tobacco, but Quit: No Second Hand Smoke Exposure: Yes - Caffeine Use Caffeine Use: Reports: Soda Caffeine Use Comment: soda - Alcohol Use Days Per Week of Alcohol Use: 0 (No previous DWIs, problems with alcohol abuse, etc.) Number of Drinks Per Day: 1 Total Drinks Per Week: 0 - Recreational Drug Use Recreational Drug Use: No Drug Use in Last 12 Months: No - Living Situation & Occupation Living situation: Reports: Single (No children), Alone Occupation: Employed (Part-time at [employer]) ED ROS GENERAL - Review of Systems Review Of Systems: See Below HEENT: Reports: Ear Discharge Respiratory: Reports: No Symptoms Cardiovascular: Reports: No Symptoms Endocrine: Reports: Fatigue GI/Abdominal: Reports: No Symptoms : Reports: No Symptoms Musculoskeletal: Reports: Muscle Stiffness Skin: Reports: No Symptoms Neurological: Reports: No Symptoms Psychiatric: Reports: No Symptoms Hematologic/Lymphatic: Reports: No Symptoms Immunologic: Reports: No Symptoms ED EXAM, GENERAL - Physical Exam Exam: See Below Exam Limited By: Altered Mental Status General Appearance: Alert, WD/WN, No Apparent Distress Eye Exam: Bilateral Eye: EOMI, PERRL Ears: Normal External Exam, Normal Canal, Hearing Grossly Normal, Normal TMs Ear Exam: Bilateral Ear: Auricle Normal, Canal Normal, TM normal Nose: Normal Inspection, Normal Mucosa, No Blood Throat/Mouth: Normal Inspection, Normal Lips, Normal Teeth, Normal Gums, Normal Oropharynx, Normal Voice, No Airway Compromise Head: Atraumatic, Normocephalic Neck: Normal Inspection, Supple, Non-Tender, Full Range of Motion Respiratory/Chest: No Respiratory Distress, Lungs Clear, Normal Breath Sounds, No Accessory Muscle Use, Chest Non-Tender Cardiovascular: Normal Peripheral Pulses, Regular Rate, Rhythm, No Edema, No Gallop, No JVD, No Murmur, No Rub GI/Abdominal: Normal Bowel Sounds, Soft, Non-Tender, No Organomegaly, No Distention, No Abnormal Bruit, No Mass (Male) Exam: Deferred Rectal (Males) Exam: Deferred Back Exam: Normal Inspection, Vertebral Tenderness Extremities: Normal Inspection, Normal Range of Motion, Non-Tender, Normal Capillary Refill, No Pedal Edema Neurological: Alert, Oriented, CN II-XII Intact, Normal Cognition, Normal Gait, Normal Reflexes, No Motor/Sensory Deficits Psychiatric: Normal Affect, Normal Mood Skin Exam: Warm, Dry, Intact, Normal Color, No Rash Lymphatic: No Adenopathy Course - Vital Signs Last Recorded V/S: Last Vital Signs Temp 97.6 F 09/06/17 22:53 Pulse 98 09/06/17 22:53 Resp 20 09/06/17 22:53 BP 130/83 09/06/17 22:53 Pulse Ox 92 L 09/06/17 22:53 - Orders/Labs/Meds Labs: Laboratory Tests 09/06/17 09/06/17 Range/Units 23:41 23:41 WBC 12.7 H (4.0-10.2) K/uL RBC 5.50 H (4.33-5.41) M/uL Hgb 14.9 (13.1-16.8) g/dL Hct 44.4 (39.0-49.0) % MCV 80.7 L (84.0-98.0) fL MCH 27.1 L (28.2-33.3) pg MCHC 33.6 (31.7-36.0) g/dL RDW 15.2 H (11.2-14.1) % Plt Count 225 (150-350) K/uL Neut % (Auto) 57.2 (45.0-80.0) % Lymph % (Auto) 31.6 (10.0-50.0) % [place] % (Auto) 7.0 (2.0-14.0) % Eos % (Auto) 3.9 (0.0-5.0) % Baso % (Auto) 0.3 (0.0-2.0) % Neut # (Auto) 7.27 H (1.40-7.00) K/uL Lymph # (Auto) 4.02 H (0.50-3.50) K/uL [place] # (Auto) 0.89 (0.00-1.00) K/uL Eos # (Auto) 0.50 (0.00-0.50) K/uL Baso # (Auto) 0.04 (0.00-0.20) K/uL Sodium 141 (136-145) mmol/L Potassium 3.6 (3.5-5.1) mmol/L Chloride 104 (98-107) mmol/L Carbon Dioxide 27.6 (21.0-32.0) mmol/L BUN 17 (7-18) mg/dL Creatinine 0.81 (0.51-1.17) mg/dL Est Cr Clr Drug Dosing TNP Estimated GFR (MDRD) > 60 mL/min Glucose 145 H (74-106) mg/dL Calcium 9.3 (8.5-10.1) mg/dL Departure - Departure Time of Disposition: 00:11 Disposition: Home, Self-Care 01 Condition: Fair Clinical Impression: Viral illness - Discharge Information Referrals: Alida Castellanos NP [Primary Care Provider] - Forms: ED Department Discharge Care Plan Goals: Patient will be sent home he is to take Motrin 400 mg 4 times a day or Tylenol 500 mg 4 times a day for generalized body aches at this time his influenza A and B were negative therefore we will not start him on Tamiflu
[2017-09-07 00:03] LABS: CHLORIDE,CL 104 mmol/L (98-107); SODIUM,NA 141 mmol/L (136-145)
== END 2017-09-07 00:25 | disposition home or self-care (01) ==
LOC: LL.ED 22:48
DX: B34.9 Viral infection, unspecified (principal); E03.9 Hypothyroidism, unspecified; F17.210 Nicotine dependence, cigarettes, uncomplicated; Z88.5 Allergy status to narcotic agent; Z88.8 Allergy status to other drugs, medicaments and biological substances; Z79.899 Other long term (current) drug therapy
CPT/HCPCS: 36415; 80048; 85025; 87804; 99283

== ENCOUNTER 2018-01-29 19:22 | Emergency (ER) | payer MEDICARE, MEDICAID ==
[2018-01-29 19:30] VITALS: BP 146/81
[2018-01-29 20:30] LABS: CHLORIDE,CL 103 mmol/L (98-107); SODIUM,NA 139 mmol/L (136-145)
--- NOTE | 2018-01-29 20:31 | EDM.PDOC ---
ED HPI GENERAL MEDICAL PROBLEM - General Chief Complaint: General Stated Complaint: right side chest abdomen Time Seen by Provider: 01/29/18 19:32 Source of Information: Reports: Patient, Family History Limitations: Reports: No Limitations - History of Present Illness INITIAL COMMENTS - FREE TEXT/NARRATIVE: Patient comes to ER with complaint of waking from nap due to pain in right neck/ posterior shoulder/side/abdomen. Denies any other changes. While waiting in room to be seen, patient stretched his arms overhead and heard/felt a "pop". He said that his pain complaint felt a lot better after that. Has been trying to exercise and go to PT per Mom and patient. Denies any injuries or specific changes that might have led to muscle injury. 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: Acetaminophen right abd/chest Pain Score (Numeric/FACES): 8 - Related Data Allergies Allergy/AdvReac Type Severity Reaction Status Date / Time cefazolin sodium [From [facility]] Allergy Rash Verified 01/29/18 19:26 codeine Allergy Hyperactivi Verified 01/29/18 19:26 ty Home Meds: Home Meds Levothyroxine [Synthroid] 50 mcg PO ACBRK #30 tab 01/29/14 [Rx] Prazosin [Minpress] 1 mg PO BEDTIME PRN 01/29/14 [History] Escitalopram [Lexapro] 20 mg PO DAILY 02/05/17 [History] LORazepam 0.5 mg PO ASDIRECTED PRN 02/05/17 [History] Pediatric Multivit Comb No.136 [Children Multivitamin] 1 tab PO DAILY 02/05/17 [ History] Naproxen 500 mg PO Q6HR PRN 05/20/17 [History] Cyclobenzaprine [Flexeril] 5 mg PO DAILY PRN 09/06/17 [History] Vit C/Stahl & Celery Ex/Grp E [Tart Stahl] 2 tab PO DAILY 09/06/17 [History] Past Medical History HEENT History: Reports: Allergic Rhinitis, Hard of Hearing, Otitis Media, Other (See Below) Other HEENT History: Chronic recurrent bilateral otitis media with history of chronic left-sided TM perforation with sensitivity to loud noises and some left- sided hearing loss however no hearing aide therapy, left-sided mastoiditis on 29/06 with no surgery required Cardiovascular History: Reports: None Other Cardiovascular History: Obesity with fatty liver Respiratory History: Reports: None Gastrointestinal History: Reports: Cholelithiasis, Other (See Below) Other Gastrointestinal History: Fatty liver by ultrasound, nonsymptomatic cholelithiasis/sludge Genitourinary History: Reports: None Musculoskeletal History: Reports: Arthritis, Fracture, Gout, Other (See Below) Other Musculoskeletal History: Right fifth metatarsal fracture on 01/11/10 Neurological History: Reports: Headaches, Chronic, Other (See Below) Other Neuro History: Chronic tension headaches, autism Psychiatric History: Reports: ADHD, Anxiety, Autism, Depression, Emotional Problems, Psych Hospitalization(s), Suicide Attempt, Suicidal Ideation, Other ( See Below) Other Psychiatric History: Autism with mental deficits/mild retardation, prazosin therapy for nightmares seldom required; history of suicidal ideation and attempt on 09/29/11 with inpatient psychiatric care Endocrine/Metabolic History: Reports: Hypothyroidism, Obesity/BMI 30+ Hematologic History: Reports: None Immunologic History: Reports: None Oncologic (Cancer) History: Reports: None Dermatologic History: Reports: None - Infectious Disease History Infectious Disease History: Reports: Chicken Pox - Past Surgical History Head Surgeries/Procedures: Reports: None HEENT Surgical History: Reports: Adenoidectomy, Eye Surgery, Myringotomy w Tube( s), Naso-Sinus Surgery, Oral Surgery, Tonsillectomy, Other (See Below) Other HEENT Surgeries/Procedures: Chronic left-sided TM perforation with recurrent otitis media including borderline sepsis, bilateral PE tubes 3 in compliance director, tonsillectomy and adenoidectomy in compliance director, nasal/ sinus surgery with possible cauterization secondary to snoring in compliance director, strabismus correction in compliance director, [place] teeth extraction Cardiovascular Surgical History: Reports: None Respiratory Surgical History: Reports: None GI Surgical History: Reports: None Male Surgical History: Reports: Circumcision, Other (See Below) Other Male Surgeries/Procedures: Circumcision as an Endocrine Surgical History: Reports: None Neurological Surgical History: Reports: None Oncologic Surgical History: Reports: None Dermatological Surgical History: Reports: None - Past Imaging History Past Imaging History: Reports: CAT Scan (CT of the maxillofacial region on , CTA of the brain on 08/06/11), Ultrasound (Abdominal ultrasound on 07/23/15, renal ultrasound on 11/29/10) Social & Family History - Tobacco Use Smoking Status *Q: Current Every Day Smoker Years of Tobacco use: 4 Packs/Tins Daily: 2 - Caffeine Use Caffeine Use: Reports: Soda Caffeine Use Comment: soda - Living Situation & Occupation Living situation: Reports: Single (No children), Alone Occupation: Employed (Part-time at [employer]) ED ROS GENERAL - Review of Systems Review Of Systems: ROS reveals no pertinent complaints other than HPI. ED EXAM, GENERAL - Physical Exam Exam: See Below Exam Limited By: No Limitations General Appearance: Alert, No Apparent Distress, Obese Eye Exam: Bilateral Eye: EOMI, PERRL Ears: Normal External Exam Nose: No: Nasal Deformity, Nasal Swelling, Nasal Drainage Throat/Mouth: Normal Inspection, Normal Lips, Normal Voice, No Airway Compromise Head: Atraumatic, Normocephalic Neck: Supple, Tender Lateral (tender with palpation over posterior/lateral right neck muscles. Some tightness of muscles noted. ) Respiratory/Chest: No Respiratory Distress, Lungs Clear, Normal Breath Sounds, No Accessory Muscle Use, Chest Non-Tender Cardiovascular: Normal Peripheral Pulses, Regular Rate, Rhythm, No Murmur Peripheral Pulses: 2+: Radial (L), Radial (R) GI/Abdominal: Normal Bowel Sounds, Soft, Non-Tender, No Distention (Male) Exam: Deferred Rectal (Males) Exam: Deferred Back Exam: Other (tenderness noted around superior trapezius/posterior shoulder. Reproduces patient's complaint. ). No: CVA Tenderness (L), CVA Tenderness (R) Extremities: Normal Inspection, Normal Range of Motion, Non-Tender, Normal Capillary Refill Neurological: Alert, Oriented, Normal Gait, Normal Reflexes, No Motor/Sensory Deficits Psychiatric: Normal Affect, Normal Mood Skin Exam: Warm, Dry, Intact, Normal Color Course - Vital Signs Last Recorded V/S: Last Vital Signs Temp 36.6 C 01/29/18 19:33 Pulse 89 01/29/18 19:33 Resp 22 H 01/29/18 19:33 BP 146/81 H 01/29/18 19:33 Pulse Ox 97 01/29/18 19:33 - Orders/Labs/Meds Orders: Active Orders 24 hr Category Date Time Status UA W/MICROSCOPIC [URIN] Stat Lab 01/29/18 20:10 Ordered Labs: Laboratory Tests 06/01/29/18 01/29/18 Range/Units 20:00 20:00 20:10 WBC 10.4 H (4.0-10.2) K/uL RBC 5.68 H (4.33-5.41) M/uL Hgb 15.0 (13.1-16.8) g/dL Hct 44.7 (39.0-49.0) % MCV 78.7 L (84.0-98.0) fL MCH 26.4 L (28.2-33.3) pg MCHC 33.6 (31.7-36.0) g/dL RDW 15.6 H (11.2-14.1) % Plt Count 193 (150-350) K/uL Neut % (Auto) 60.2 (45.0-80.0) % Lymph % (Auto) 28.5 (10.0-50.0) % [place] % (Auto) 6.4 (2.0-14.0) % Eos % (Auto) 4.5 (0.0-5.0) % Baso % (Auto) 0.4 (0.0-2.0) % Neut # (Auto) 6.24 (1.40-7.00) K/uL Lymph # (Auto) 2.95 (0.50-3.50) K/uL [place] # (Auto) 0.66 (0.00-1.00) K/uL Eos # (Auto) 0.47 (0.00-0.50) K/uL Baso # (Auto) 0.04 (0.00-0.20) K/uL Sodium 139 (136-145) mmol/L Potassium 3.8 (3.5-5.1) mmol/L Chloride 103 (98-107) mmol/L Carbon Dioxide 25.1 (21.0-32.0) mmol/L BUN 16 (7-18) mg/dL Creatinine 0.70 (0.51-1.17) mg/dL Est Cr Clr Drug Dosing TNP Estimated GFR (MDRD) > 60 mL/min Glucose 112 H (74-106) mg/dL Calcium 9.2 (8.5-10.1) mg/dL Total Bilirubin 0.3 (0.2-1.0) mg/dL AST 51 H (15-37) U/L ALT 66 (12-78) U/L Alkaline Phosphatase 87 (46-116) IU/L Total Protein 7.3 (6.4-8.2) g/dL Albumin 3.6 (3.4-5.0) g/dL Amylase 40 (25-115) U/L Lipase 79 (73-393) U/L Specimen Type Urinblad Urine Color Yellow Urine Appearance Clear Urine pH 5.5 (5.0-9.0) Ur Specific [place] 1.020 (1.005-1.030) Urine Protein Negative (NEGATIVE) mg/dL Urine Glucose (UA) Negative (NEGATIVE) mg/dL Urine Ketones Negative (NEGATIVE) mg/dL Urine Occult Blood Negative (NEGATIVE) Urine Nitrite Negative (NEGATIVE) Urine Bilirubin Negative (NEGATIVE) Urine Urobilinogen 0.2 (0.2-1.0) E.U./dL Ur Leukocyte Esterase Negative (NEGATIVE) Urine RBC 0-5 /HPF Urine WBC 0-5 /HPF Ur Epithelial Cells Few /LPF Urine Bacteria Few (NONE TO FEW) /HPF Urine Mucus Moderate H (NEGATIVE) /LPF - Re-Assessments/Exams Free Text/Narrative Re-Assessment/Exam: Suspect musculo-skeletal etiology for patient's complaints. Pain complaint reproduced with palpation of muscles of right posterior shoulder/neck. No pain in chest or abdomen area noted. Again, patient reports he felt a popping sensation while stretching and then had an immediate improvement in perceived discomfort. Otherwise unremarkable exam. No significant changes noted on labs. Plan at this time is to have patient take Flexeril to help with suspected muscle spasm. Tylenol or ibuprofen are OK. He is to ice areas that are sore and perform gentle stretching. To follow up as needed. Patient and his mother are in agreement with plan. Departure - Departure Time of Disposition: 20:29 Disposition: Home, Self-Care 01 Condition: Good Clinical Impression: Muscle pain - Discharge Information Instructions: Cyclobenzaprine tablets Referrals: Alida Castellanos NP [Primary Care Provider] - Forms: ED Department Discharge Additional Instructions: Ice may be helpful for sore muscles. If not, you can try heat. Consider chiropractic visit next week if discomfort continues. Follow up otherwise as needed. Gentle stretching/range of motion/yoga can also help with general muscle/ flexibility health. - My Orders Last 24 Hours: My Active Orders 01/29/18 20:10 UA W/MICROSCOPIC [URIN] Stat - Assessment/Plan Last 24 Hours: My Active Orders 01/29/18 20:10 UA W/MICROSCOPIC [URIN] Stat
== END 2018-01-29 20:30 | disposition home or self-care (01) ==
LOC: LL.ED 19:22
DX: M54.2 Cervicalgia (principal); F17.210 Nicotine dependence, cigarettes, uncomplicated; Z88.5 Allergy status to narcotic agent; Z79.899 Other long term (current) drug therapy
CPT/HCPCS: 36415; 80053; 81001; 82150; 83690; 85025; 99283

== ENCOUNTER 2018-02-04 15:09 | Emergency (ER) | payer MEDICARE, MEDICAID ==
[2018-02-04] MEDS ORDERED: Sodium Chloride 0.9% 10 ML Syringe FLUSH PRN (15:10)
[2018-02-04] MEDS ORDERED: Famotidine 20 MG/2 ML SDV IVPUSH ONE (15:10)
--- NOTE | 2018-02-04 15:10 | EDM.PDOC ---
ED HPI GENERAL MEDICAL PROBLEM - General Chief Complaint: General Stated Complaint: passed out Time Seen by Provider: 02/04/18 15:10 Source of Information: Reports: Patient, Family (Mother, caregiverKayla, aunt, father, and uncle), Old Records ([facility] chart/EMR) History Limitations: Reports: Altered Mental Status - History of Present Illness INITIAL COMMENTS - FREE TEXT/NARRATIVE: The patient was brought to the emergency room via emergency room bed from physical therapy secondary to sudden onset seizure activity while doing leg and back exercises mainly prior to arrival in the emergency room. No history of significant head or other injury from today's seizure with 2 seizures in the physical therapy department with each seizure lasting about 2-3 minutes. The patient had an additional grand mal seizure shortly after arrival to the emergency room. He does not have a previous history of any seizure disorder, recent change in medications, overdose, etc. The patient apparently did not feel well since about 21:00 hours yesterday, however specifics unknown. The patient also denies any recent fever, cough, wheezing, dyspnea, etc.. Patient is on chronic Flexeril therapy with no recent increase of this medication. No apparent pain or discomfort other than nonspecific bilateral frontal headaches.. Onset: Today, Sudden Onset Date: 02/04/18 (As above) Duration: Intermittent Location: Reports: Generalized (Seizures) Severity: Severe Improves with: Reports: None Worsens with: Reports: None Context: Reports: Other (As above) Associated Symptoms: Reports: Confusion (Secondary to seizure), Headaches ( Bilateral frontal) - Related Data Allergies Allergy/AdvReac Type Severity Reaction Status Date / Time cefazolin sodium [From [facility]] Allergy Rash Verified 01/29/18 19:26 codeine Allergy Hyperactivi Verified 01/29/18 19:26 ty Home Meds: Home Meds Levothyroxine [Synthroid] 50 mcg PO ACBRK #30 tab 01/29/14 [Rx] Prazosin [Minpress] 1 mg PO BEDTIME PRN 01/29/14 [History] Escitalopram [Lexapro] 20 mg PO DAILY 02/05/17 [History] LORazepam 0.5 mg PO ASDIRECTED PRN 02/05/17 [History] Pediatric Multivit Comb No.136 [Children Multivitamin] 1 tab PO DAILY 02/05/17 [ History] Naproxen 500 mg PO Q6HR PRN 05/20/17 [History] Cyclobenzaprine [Flexeril] 5 mg PO DAILY PRN 09/06/17 [History] Vit C/Stahl & Celery Ex/Grp E [Tart Stahl] 2 tab PO DAILY 09/06/17 [History] Past Medical History HEENT History: Reports: Allergic Rhinitis, Hard of Hearing, Otitis Media, Other (See Below). 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 Denies: Afib, Arrhythmia, Blood Clots/ VTE/DVT, CAD, Heart Failure, Heart Murmur, High Cholesterol, Hypertension, [place], Syncope Other Cardiovascular History: Obesity with fatty liver Respiratory History: Reports: None. Denies: Asthma, Bronchitis, Recurrent, COPD , Intubation, Difficult, Intubation, Previous, PE, Pneumonia, Recurrent, Pneumothorax Gastrointestinal History: Reports: Cholelithiasis, Other (See Below). Denies: Celiac Disease, Chronic Diarrhea, Diverticulosis, Fecal Incontinence, Gastritis , GERD, GI Bleed, Hepatitis, Hiatal Hernia, Inflammatory Bowel Disease, Irritable Bowel Syndrome, Jaundice, Pancreatitis Other Gastrointestinal History: Fatty liver by ultrasound, nonsymptomatic cholelithiasis/sludge Genitourinary History: Reports: None. Denies: Chronic Renal Insuffiency, Renal Calculus, Retention, Urinary, STD, Urinary Incontinence, UTI, Recurrent Musculoskeletal History: Reports: Arthritis, Back Pain, Chronic, Fracture, Gout , Neck Pain, Chronic, Osteoarthritis, Other (See Below). Denies: Amputation, Osteoporosis, RA, SLE Other Musculoskeletal History: Right fifth metatarsal fracture on 01/11/10 Neurological History: Reports: Headaches, Chronic, Other (See Below). Denies: Brain Injury, Cerebral Aneurysms, Concussion, CVA, Head Trauma, Migraines, MS, Neuropathy, Peripheral, Seizure, TIA Other Neuro History: Chronic tension headaches, autism Psychiatric History: Reports: ADHD, Anxiety, Autism, Depression, Emotional Problems, Psych Hospitalization(s), Suicide Attempt, Suicidal Ideation, Other ( See Below). Denies: Abuse, Victim of, ADD, Addiction Other Psychiatric History: Autism with mental deficits/mild retardation, prazosin therapy for nightmares seldom required; history of suicidal ideation and attempt on 09/29/11 with inpatient psychiatric care Endocrine/Metabolic History: Reports: Hypothyroidism, Obesity/BMI 30+. Denies: Diabetes, Type I, Diabetes, Type II, Diabetes Mellitus, Type 3c Hematologic History: Reports: None. Denies: Anemia, Blood Transfusion(s), Iron Deficiency Immunologic History: Reports: None. Denies: AIDS, HIV, SLE Oncologic (Cancer) History: Reports: None. Denies: Basal Cell Carcinoma, Hodgkin's Lymphoma, Leukemia, Lymphoma, Malignant Melanoma, Non-Hodgkin's Lymphoma, Squamous Cell Carcinoma Dermatologic History: Reports: None. Denies: Eczema, Psoriasis - Infectious Disease History Infectious Disease History: Reports: Chicken Pox, Influenza. Denies: C- Difficile, Meningitis, Mononucleosis, MRSA, Mumps, Pertussis (Whooping Cough), Rheumatic Fever, Rubella, Scarlet Fever, Shingles, VRE - Past Surgical History Head Surgeries/Procedures: Reports: None HEENT Surgical History: Reports: Adenoidectomy, Eye Surgery, Myringotomy w Tube( s), Naso-Sinus Surgery, Oral Surgery, Tonsillectomy, Other (See Below). Denies : Laser Surgery, LASIK Other HEENT Surgeries/Procedures: Chronic left-sided TM perforation with recurrent otitis media including borderline sepsis, bilateral PE tubes 3 in [employer], tonsillectomy and adenoidectomy in [employer], nasal/ sinus surgery with possible cauterization secondary to snoring in [employer], strabismus correction in [employer], [place] teeth extraction Cardiovascular Surgical History: Reports: None. Denies: Varicose, Vascular Surgery Respiratory Surgical History: Reports: None. Denies: Thoracentesis GI Surgical History: Reports: None. Denies: Appendectomy, Cholecystectomy, Colonoscopy, EGD, Hernia, Abdominal, Hernia, Inguinal, Hernia Repair/Other Male Surgical History: Reports: Circumcision, Other (See Below). Denies: Vasectomy Other Male Surgeries/Procedures: Circumcision as an infant Endocrine Surgical History: Reports: None Neurological Surgical History: Reports: None. Denies: C-Spine, Discectomy, Laminectomy, Lumbar Spine, Sacral Spine, Spinal Fusion, Thoracic Spine Musculoskeletal Surgical History: Reports: None. Denies: Arthroscopic Procedure , Carpal Tunnel, Ganglion Cyst, Joint Replacement, ORIF, Shoulder Surgery Oncologic Surgical History: Reports: None Dermatological Surgical History: Reports: None - Past Imaging History Past Imaging History: Reports: CAT Scan (CT of the maxillofacial region on , CTA of the brain on 08/06/11), Ultrasound (Abdominal ultrasound on 07/23/15, renal ultrasound on 11/29/10) Social & Family History - Tobacco Use Smoking Status *Q: Current Every Day Smoker Tobacco Use Within Last Twelve Months: Cigarettes Years of Tobacco use: 5 Packs/Tins Daily: 1 Used Tobacco, but Quit: No Smoking Cessation Information Provided To Patient: Patient Refused (Patient transferred) Second Hand Smoke Exposure: Yes Second Hand Smoke Education Provided: Patient Refused (Patient transferred) - Caffeine Use Caffeine Use: Reports: Soda (3 sodas per day). Denies: Coffee, Energy Drinks, Tea - Alcohol Use Alcohol Use History: Yes Days Per Week of Alcohol Use: 0 Number of Drinks Per Day: 1 Number of Drinks Per Day Comment: Rarely. No previous DWIs, problems with alcohol abuse, etc. Total Drinks Per Week: 0 Alcohol Use in Last Twelve Months: Yes Alcohol Use Frequency: Rarely - Recreational Drug Use Recreational Drug Use: No Drug Use in Last 12 Months: No Recreational Drug Type: Denies: Amphetamines (Speed), Cocaine, Heroin, Inhalants (Glues, Solvents, Aerosols), LSD (Acid), Marijuana/Hashish, Methamphetamine, Morphine, Oxycodone - Living Situation & Occupation Living situation: Reports: Single (No children), Alone (Part-time caregiver as below) Occupation: Employed (Part-time at [employer]. Autism and secondary mental disability with caregiver) ED ROS GENERAL - Review of Systems Review Of Systems: Unable To Obtain ED EXAM, GENERAL - Physical Exam Exam: See Below Exam Limited By: Altered Mental Status General Appearance: Alert, WD/WN, Anxious (Moderate) Eye Exam: Bilateral Eye: Normal Fundi, Normal Inspection (No nystagmus, however I deviation to the upper left bilaterally with seizure activity), PERRL Ears: Normal External Exam, Normal Canal, Hearing Grossly Normal, Normal TMs Nose: Normal Inspection, Normal Mucosa, No Blood Throat/Mouth: Normal Inspection, Normal Lips, Normal Teeth, Normal Gums, Normal Oropharynx, Normal Voice, No Airway Compromise. No: Dysphagia, Inflammation, Perioral Cyanosis Head: Atraumatic, Normocephalic. No: Facial Swelling, Facial Tenderness, Sinus Tenderness Neck: Normal Inspection, Supple, Non-Tender, Full Range of Motion. No: Carotid Bruit, Lymphadenopathy (L), Lymphadenopathy (R), Thyromegaly Respiratory/Chest: No Respiratory Distress, Lungs Clear, Normal Breath Sounds, No Accessory Muscle Use, Chest Non-Tender. No: Pleural Rub, Retractions Cardiovascular: Normal Peripheral Pulses, Regular Rate, Rhythm, No Edema, No Gallop, No JVD, No Murmur, No Rub. No: Gallop/S3, Gallop/S4, Friction Rub Peripheral Pulses: 2+: Radial (L), Radial (R), Dorsalis Pedis (L), Dorsalis Pedis (R) GI/Abdominal: Normal Bowel Sounds, Soft, Non-Tender, No Organomegaly, No Distention, No Abnormal Bruit, No Mass, Pelvis Stable, Other (Obese). No: Guarding (Male) Exam: Deferred Rectal (Males) Exam: Deferred Back Exam: Normal Inspection, Full Range of Motion. No: CVA Tenderness (L), CVA Tenderness (R), Muscle Spasm Extremities: Normal Inspection, Normal Range of Motion, Non-Tender, No Pedal Edema, Normal Capillary Refill. No: Kaylynn's Sign Neurological: Normal Reflexes (Negative Babinski's), Confused, Disoriented, Other (Status epilepticus) Psychiatric: Anxious (Moderate) Skin Exam: Warm, Dry, Intact, Normal Color, No Rash. No: Diaphoretic, Wound/ Incision Lymphatic: No Adenopathy EKG INTERPRETATION EKG Date: 02/04/18 Time: 15:30 Rhythm: NSR Rate (Beats/Min): 88 Eddy: Normal (Neutral cardiac axis) P-Wave: Enlarged (Diffuse biphasic P wavesmild) QRS: LBBB (Cures interval of 0.11 seconds representing repolarization changes versus borderline incomplete left bundle branch block with T-wave inversion in leads 3 and V1 with additional nonspecific ST changes) ST-T: Other (As above) QT: Normal DE/PQ Interval: 0.15 seconds with no delta waves noted. Comparison: NA - No Prior EKG EKG Interpretation Comments: 1. No acute ischemic changes 2. Borderline incomplete left bundle branch block versus repolarization changes Course - Vital Signs Last Recorded V/S: See Stroke Code Sheet - Orders/Labs/Meds Orders: Active Orders 24 hr Category Date Time Status Blood Glucose Check, Bedside [RC] STAT Care 02/04/18 15:10 Active Cardiac Monitoring [RC] STAT Care 02/04/18 15:10 Active EKG Documentation Completion [RC] ASDIRECTED Care 02/04/18 15:10 Active NIH Stroke Scale [RC] ASDIRECTED Care 02/04/18 15:10 Active Oxygen Therapy, ED [RC] CONTINUOUS Care 02/04/18 15:10 Active Peripheral IV Care [RC] . DIRECTED Care 02/04/18 15:10 Active Pulse Oximetry [RC] CONTINUOUS Care 02/04/18 15:10 Active Up With Assistance [RC] ASDIRECTED Care 02/04/18 15:10 Active Vital Signs [RC] PFP Care 02/04/18 15:10 Active Nothing per Oral Now Diet [DIET] Diet 02/04/18 Breakfast Active Chest 1V Frontal [CR] Stat Exams 02/04/18 15:10 Stop Req Head wo Cont [CT] Stat Exams 02/04/18 15:10 Taken PROLACTIN [REF] Stat Lab 02/04/18 15:10 Received Sodium Chloride 0.9% [Saline Flush] Med 02/04/18 15:10 Active 10 ml FLUSH ASDIRECTED PRN Obtain Past Medical Record [OM.PC] Stat Oth 02/04/18 15:10 Active Peripheral IV Insertion Adult [OM.PC] Stat Oth 02/04/18 15:10 Ordered Resuscitation Status Stat Resus Stat 02/04/18 15:10 Ordered EKG 12 Lead [EK] Stat Ther 02/04/18 15:10 Ordered Medication Orders Sodium Chloride (Saline Flush) 10 ml FLUSH ASDIRECTED PRN PRN Reason: Keep Vein Open Labs: Laboratory Tests 02/04/18 02/04/18 02/04/18 Range/Units 15:10 15:10 15:10 WBC 11.2 H (4.0-10.2) K/uL RBC 5.93 H (4.33-5.41) M/uL Hgb 15.9 (13.1-16.8) g/dL Hct 46.9 (39.0-49.0) % MCV 79.1 L (84.0-98.0) fL MCH 26.8 L (28.2-33.3) pg MCHC 33.9 (31.7-36.0) g/dL RDW 16.9 H (11.2-14.1) % Plt Count 225 (150-350) K/uL Neut % (Auto) 59.8 (45.0-80.0) % Lymph % (Auto) 28.5 (10.0-50.0) % Mckean % (Auto) 6.6 (2.0-14.0) % Eos % (Auto) 4.7 (0.0-5.0) % Baso % (Auto) 0.4 (0.0-2.0) % Neut # (Auto) 6.71 (1.40-7.00) K/uL Lymph # (Auto) 3.19 (0.50-3.50) K/uL Mckean # (Auto) 0.74 (0.00-1.00) K/uL Eos # (Auto) 0.53 H (0.00-0.50) K/uL Baso # (Auto) 0.04 (0.00-0.20) K/uL PT 10.1 (9.8-11.7) SEC INR 0.9 APTT 26.0 (22.1-29.8) SEC D-Dimer, Quantitative < 100 (0-400) ng/mL Sodium (136-145) mmol/L Potassium (3.5-5.1) mmol/L Chloride (98-107) mmol/L Carbon Dioxide (21.0-32.0) mmol/L BUN (7-18) mg/dL Creatinine (0.51-1.17) mg/dL Est Cr Clr Drug Dosing Estimated GFR (MDRD) mL/min Glucose (74-106) mg/dL Lactic Acid (0.4-2.0) mmol/L Uric Acid (2.6-7.2) mg/dL Calcium (8.5-10.1) mg/dL Magnesium (1.8-2.4) mg/dL Total Bilirubin (0.2-1.0) mg/dL AST (15-37) U/L ALT (12-78) U/L Alkaline Phosphatase (46-116) IU/L Creatine Kinase (26-308) U/L Creatine Kinase Index (0.0-2.5) % CK-MB (CK-2) (0.00-3.60) ng/mL Troponin I (0.000-0.056) ng/mL NT-Pro-B Natriuret Pep (0-125) pg/mL Total Protein (6.4-8.2) g/dL Albumin (3.4-5.0) g/dL TSH, Ultra Sensitive (0.358-3.740) mIU/mL 02/04/18 02/04/18 Range/Units 15:10 15:10 WBC (4.0-10.2) K/uL RBC (4.33-5.41) M/uL Hgb (13.1-16.8) g/dL Hct (39.0-49.0) % MCV (84.0-98.0) fL MCH (28.2-33.3) pg MCHC (31.7-36.0) g/dL RDW (11.2-14.1) % Plt Count (150-350) K/uL Neut % (Auto) (45.0-80.0) % Lymph % (Auto) (10.0-50.0) % Mckean % (Auto) (2.0-14.0) % Eos % (Auto) (0.0-5.0) % Baso % (Auto) (0.0-2.0) % Neut # (Auto) (1.40-7.00) K/uL Lymph # (Auto) (0.50-3.50) K/uL Mckean # (Auto) (0.00-1.00) K/uL Eos # (Auto) (0.00-0.50) K/uL Baso # (Auto) (0.00-0.20) K/uL PT (9.8-11.7) SEC INR APTT (22.1-29.8) SEC D-Dimer, Quantitative (0-400) ng/mL Sodium 139 (136-145) mmol/L Potassium 4.1 (3.5-5.1) mmol/L Chloride 102 (98-107) mmol/L Carbon Dioxide 23.5 (21.0-32.0) mmol/L BUN 12 (7-18) mg/dL Creatinine 0.78 (0.51-1.17) mg/dL Est Cr Clr Drug Dosing TNP Estimated GFR (MDRD) > 60 mL/min Glucose 121 H (74-106) mg/dL Lactic Acid 2.0 (0.4-2.0) mmol/L Uric Acid 9.7 H (2.6-7.2) mg/dL Calcium 9.8 (8.5-10.1) mg/dL Magnesium 1.9 (1.8-2.4) mg/dL Total Bilirubin 0.4 (0.2-1.0) mg/dL AST 45 H (15-37) U/L ALT 69 (12-78) U/L Alkaline Phosphatase 104 (46-116) IU/L Creatine Kinase 55 (26-308) U/L Creatine Kinase Index 1.1 (0.0-2.5) % CK-MB (CK-2) 0.60 (0.00-3.60) ng/mL Troponin I 0.000 (0.000-0.056) ng/mL NT-Pro-B Natriuret Pep 7 (0-125) pg/mL Total Protein 8.2 (6.4-8.2) g/dL Albumin 3.9 (3.4-5.0) g/dL TSH, Ultra Sensitive 3.077 (0.358-3.740) mIU/mL Prolactin level drawn with results pending. Meds: Medications Generic Name Dose Route Start Last Admin Trade Name Freq PRN Reason Stop Dose Admin Sodium Chloride 10 ml 02/04/18 15:10 Saline Flush FLUSH ASDIRECTED PRN Keep Vein Open Discontinued Medications Generic Name Dose Route Start Last Admin Trade Name Freq PRN Reason Stop Dose Admin Diazepam 5 mg 02/04/18 15:11 02/04/18 15:16 Valium IVPUSH 02/04/18 15:12 5 mg ONETIME ONE Administration Diazepam 5 mg 02/04/18 15:25 02/04/18 15:29 Valium IVPUSH 02/04/18 15:26 5 mg ONETIME ONE Administration Diazepam 2.5 mg 02/04/18 15:35 02/04/18 15:39 Valium IVPUSH 02/04/18 15:36 2.5 mg ONETIME ONE Administration Famotidine 40 mg 02/04/18 15:10 02/04/18 15:31 Pepcid IVPUSH 02/04/18 15:11 40 mg ONETIME ONE Administration Levetiracetam 1,000 mg/ Sodium 110 mls @ 400 mls/hr 02/04/18 15:11 02/04/18 15:22 Chloride IV 02/04/18 15:27 400 mls/hr NOW STA Administration Phenobarbital 1,000 mg 02/04/18 16:03 02/04/18 16:27 Phenobarbital Sodium IVPUSH 02/04/18 16:04 650 mg ONETIME ONE Administration - Radiology Interpretation Free Text/Narrative:: conveyor monitor showed normal sinus rhythm with heart rate in the 80s with some sinus tachycardia in the 110s 120s during seizure activity with no significant arrhythmia Telephone consultation at 15:38 hours with the radiology department at [facility]. Preliminary verbal report of noncontrast CT scan of the head was negative for acute changes with some motion artifacts noted. CT Results Date: 02/04/18 CT Results Time: 15:38 Departure - Departure Time of Disposition: 16:58 Disposition: DC/Tfer to [facility] 02 Condition: Fair Clinical Impression: Grand mal seizure disorder, Mixed anxiety depressive disorder, Autism, Hypothyroidism, Hyperuricemia, LFT elevation Obesity Qualifiers: Obesity type: due to excess calories Obesity classification: unspecified obesity classification Serious obesity comorbidity presence: without serious comorbidity Qualified Code(s): E66.09 - Other obesity due to excess calories - Discharge Information Referrals: PCP,Unknown [Primary Care Provider] - Forms: ED Department Discharge, Interfacility Transfer EMTALA - Problem List & Annotations (1) Grand mal seizure disorder SNOMED Code(s): 815496935 Code(s): G40.409 - OTH GENERALIZED EPILEPSY, NOT INTRACTABLE, W/O STAT EPI Status: Acute Priority: High Current Visit: Yes Onset Date: 02/04/18 Annotation/Comment:: Extremely refractory status epilepticus with rest of medical therapy as above requiring a total of 12.5 mg of diazepam, 1000 mg of Keppra IV, and 650 mg of phenobarbital to control his seizures. No complications from his refractory seizure disorder, including aspiration, hypoxia, etc. with no intubation required. Telephone consultation at 15:40 hours with Festus Purvis M.D., emergency room physician at [facility], who does agree to accept the patient for direct admission, with no further treatment recommendations given. Patient was seizure-free at time of transfer via air ambulance. Note that the patient had a total of approximately 20 seizures in the emergency room. Stroke code was called immediately upon patient's arrival to the emergency room. Note negative CT scan of the head as above. Emotional support provided to multiple family members and his caregiver. (2) Hyperuricemia SNOMED Code(s): 01264287 Code(s): E79.0 - HYPERURICEMIA W/O SIGNS OF INFLAM ARTHRIT AND TOPHACEOUS DIS Status: Chronic Priority: Medium Current Visit: Yes Annotation/ Comment:: Moderate hyperuricemia today with no recent gout-type symptoms. (3) LFT elevation SNOMED Code(s): 743021431, 641088490 Code(s): R94.5 - ABNORMAL RESULTS OF LIVER FUNCTION STUDIES Status: Chronic Priority: Medium Current Visit: Yes Annotation/Comment:: LFTs elevation likely secondary to fatty liver (4) Autism SNOMED Code(s): 974835842 Code(s): F84.0 - AUTISTIC DISORDER Status: Chronic Priority: Medium Current Visit: Yes Annotation/Comment:: Stable by history (5) Hypothyroidism SNOMED Code(s): 66271410 Code(s): E03.9 - HYPOTHYROIDISM, UNSPECIFIED Status: Chronic Priority: Medium Current Visit: Yes Annotation/Comment:: Currently under therapy with normal TSH today. (6) Mixed anxiety depressive disorder SNOMED Code(s): 239124242 Code(s): F41.8 - OTHER SPECIFIED ANXIETY DISORDERS Status: Chronic Priority: Medium Current Visit: Yes Annotation/Comment:: Stable by history, although moderate anxiety and combativeness during awake periods tween seizures. (7) Obesity SNOMED Code(s): 109972297, 193581025 Code(s): E66.9 - OBESITY, UNSPECIFIED Status: Chronic Priority: Medium Current Visit: Yes Annotation/Comment:: Weight loss in moderation advisable Qualifiers: Obesity type: due to excess calories Obesity classification: unspecified obesity classification Serious obesity comorbidity presence: without serious comorbidity Qualified Code(s): E66.09 - Other obesity due to excess calories - Problem List Review Problem List Initiated/Reviewed/Updated: Yes - My Orders Last 24 Hours: My Active Orders 02/04/18 15:10 Blood Glucose Check, Bedside [RC] STAT Cardiac Monitoring [RC] STAT EKG Documentation Completion [RC] ASDIRECTED NIH Stroke Scale [RC] ASDIRECTED Oxygen Therapy, ED [RC] CONTINUOUS Peripheral IV Care [RC] . DIRECTED Pulse Oximetry [RC] CONTINUOUS Up With Assistance [RC] ASDIRECTED Vital Signs [RC] PFP Chest 1V Frontal [CR] Stat Head wo Cont [CT] Stat PROLACTIN [REF] Stat Sodium Chloride 0.9% [Saline Flush] 10 ml FLUSH ASDIRECTED PRN Obtain Past Medical Record [OM.PC] Stat Peripheral IV Insertion Adult [OM.PC] Stat Resuscitation Status Stat EKG 12 Lead [EK] Stat 02/04/18 Breakfast Nothing per Oral Now Diet [DIET] - Assessment/Plan Last 24 Hours: My Active Orders 02/04/18 15:10 Blood Glucose Check, Bedside [RC] STAT Cardiac Monitoring [RC] STAT EKG Documentation Completion [RC] ASDIRECTED NIH Stroke Scale [RC] ASDIRECTED Oxygen Therapy, ED [RC] CONTINUOUS Peripheral IV Care [RC] . DIRECTED Pulse Oximetry [RC] CONTINUOUS Up With Assistance [RC] ASDIRECTED Vital Signs [RC] PFP Chest 1V Frontal [CR] Stat Head wo Cont [CT] Stat PROLACTIN [REF] Stat Sodium Chloride 0.9% [Saline Flush] 10 ml FLUSH ASDIRECTED PRN Obtain Past Medical Record [OM.PC] Stat Peripheral IV Insertion Adult [OM.PC] Stat Resuscitation Status Stat EKG 12 Lead [EK] Stat 02/04/18 Breakfast Nothing per Oral Now Diet [DIET] Assessment:: As above Plan: As above. Extensive precautions were given to the patient's, who are in agreement with the treatment plan. Air ambulance transfer as above.
[2018-02-04] MEDS ORDERED: levETIRAcetam 1,000 MG in Sodium Chloride 0.9% 100 ML IV STA (15:11)
[2018-02-04] MEDS ORDERED: PHENobarbital Sodium 65 MG/ML SDV IVPUSH ONE ×2 (15:37→16:03)
[2018-02-04 16:03] LABS: CHLORIDE,CL 102 mmol/L (98-107); SODIUM,NA 139 mmol/L (136-145)
[2018-02-04] MEDS ORDERED: Sodium Chloride 0.9% 100 ML IV ONE (16:17)
[2018-02-04] MEDS ORDERED: PHENobarbital Sodium 65 MG/ML SDV ONE (16:17)
== END 2018-02-04 16:58 ==
LOC: LL.ED 15:09
DX: G40.409 Other generalized epilepsy and epileptic syndromes, not intractable, without status epilepticus (principal); F41.8 Other specified anxiety disorders; F84.0 Autistic disorder; E79.0 Hyperuricemia without signs of inflammatory arthritis and tophaceous disease; R94.5 Abnormal results of liver function studies; E66.09 Other obesity due to excess calories; E03.9 Hypothyroidism, unspecified; F17.210 Nicotine dependence, cigarettes, uncomplicated; Z88.5 Allergy status to narcotic agent; Z88.8 Allergy status to other drugs, medicaments and biological substances; Z79.899 Other long term (current) drug therapy
CPT/HCPCS: 36415; 70450; 80053; 82550; 82553; 83605; 83735; 83880; 84146; 84443; 84484; 84550; 85025; 85379; 85610; 85730; 93005; 96365; 96375; 99291; 99292; J1953; J2560; J3360; J7050; S0028

== ENCOUNTER 2018-02-06 18:09 | Emergency (ER) | payer MEDICARE, MEDICAID ==
[2018-02-06 18:36] LABS: CHLORIDE,CL 104 mmol/L (98-107); SODIUM,NA 140 mmol/L (136-145)
--- NOTE | 2018-02-06 19:00 | EDM.PDOC ---
ED HPI GENERAL MEDICAL PROBLEM - General Chief Complaint: Neurological Problem Stated Complaint: seizure Time Seen by Provider: 02/06/18 18:15 Source of Information: Reports: Patient, EMS, Family History Limitations: Reports: No Limitations, Other (Psychosomatic seizures) - History of Present Illness INITIAL COMMENTS - FREE TEXT/NARRATIVE: Patient is a 22-year-old who was brought in via ambulance from his friend's house. H apparently had multiple pseudoseizures at the friend's house he responded to sternal rub and was brought in for evaluation patient recently admitted to the hospital at [facility] and diagnosed with pseudoseizures and sent home Onset: Today, Sudden Duration: Minutes:, Improving Location: Reports: Head Severity: Mild Improves with: Reports: Rest Worsens with: Reports: Other (Activity) Context: Reports: Activity Associated Symptoms: Reports: Weakness - Related Data Allergies Allergy/AdvReac Type Severity Reaction Status Date / Time cefazolin sodium [From [facility]] Allergy Rash Verified 02/06/18 18:21 codeine Allergy Hyperactivi Verified 02/06/18 18:21 ty Home Meds: Home Meds Levothyroxine [Synthroid] 50 mcg PO ACBRK #30 tab 01/29/14 [Rx] Prazosin [Minpress] 1 mg PO BEDTIME PRN 01/29/14 [History] Escitalopram [Lexapro] 20 mg PO DAILY 02/05/17 [History] LORazepam 0.5 mg PO ASDIRECTED PRN 02/05/17 [History] Pediatric Multivit Comb No.136 [Children Multivitamin] 1 tab PO DAILY 02/05/17 [ History] Naproxen 500 mg PO Q6HR PRN 05/20/17 [History] Cyclobenzaprine [Flexeril] 5 mg PO DAILY PRN 09/06/17 [History] Vit C/Stahl & Celery Ex/Grp E [Tart Stahl] 2 tab PO DAILY 09/06/17 [History] Past Medical History HEENT History: Reports: Allergic Rhinitis, Hard of Hearing, Otitis Media, Other (See Below). 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 Denies: Afib, Arrhythmia, Blood Clots/ VTE/DVT, CAD, Heart Failure, Heart Murmur, High Cholesterol, Hypertension, IA, Syncope Other Cardiovascular History: Obesity with fatty liver Respiratory History: Reports: None. Denies: Asthma, Bronchitis, Recurrent, COPD , Intubation, Difficult, Intubation, Previous, PE, Pneumonia, Recurrent, Pneumothorax Gastrointestinal History: Reports: Cholelithiasis, Other (See Below). Denies: Celiac Disease, Chronic Diarrhea, Diverticulosis, Fecal Incontinence, Gastritis , GERD, GI Bleed, Hepatitis, Hiatal Hernia, Inflammatory Bowel Disease, Irritable Bowel Syndrome, Jaundice, Pancreatitis Other Gastrointestinal History: Fatty liver by ultrasound, nonsymptomatic cholelithiasis/sludge Genitourinary History: Reports: None. Denies: Chronic Renal Insuffiency, Renal Calculus, Retention, Urinary, STD, Urinary Incontinence, UTI, Recurrent Musculoskeletal History: Reports: Arthritis, Back Pain, Chronic, Fracture, Gout , Neck Pain, Chronic, Osteoarthritis, Other (See Below). Denies: Amputation, Osteoporosis, RA, SLE Other Musculoskeletal History: Right fifth metatarsal fracture on 01/11/10 Neurological History: Reports: Headaches, Chronic, Other (See Below). Denies: Brain Injury, Cerebral Aneurysms, Concussion, CVA, Head Trauma, Migraines, MS, Neuropathy, Peripheral, Seizure, TIA Other Neuro History: Chronic tension headaches, autism Psychiatric History: Reports: ADHD, Anxiety, Autism, Depression, Emotional Problems, Psych Hospitalization(s), Suicide Attempt, Suicidal Ideation, Other ( See Below). Denies: Abuse, Victim of, ADD, Addiction Other Psychiatric History: Autism with mental deficits/mild retardation, prazosin therapy for nightmares seldom required; history of suicidal ideation and attempt on 09/29/11 with inpatient psychiatric care Endocrine/Metabolic History: Reports: Hypothyroidism, Obesity/BMI 30+. Denies: Diabetes, Type I, Diabetes, Type II, Diabetes Mellitus, Type 3c Hematologic History: Reports: None. Denies: Anemia, Blood Transfusion(s), Iron Deficiency Immunologic History: Reports: None. Denies: AIDS, HIV, SLE Oncologic (Cancer) History: Reports: None. Denies: Basal Cell Carcinoma, Hodgkin's Lymphoma, Leukemia, Lymphoma, Malignant Melanoma, Non-Hodgkin's Lymphoma, Squamous Cell Carcinoma Dermatologic History: Reports: None. Denies: Eczema, Psoriasis - Infectious Disease History Infectious Disease History: Reports: Chicken Pox, Influenza. Denies: C- Difficile, Meningitis, Mononucleosis, MRSA, Mumps, Pertussis (Whooping Cough), Rheumatic Fever, Rubella, Scarlet Fever, Shingles, VRE - Past Surgical History Head Surgeries/Procedures: Reports: None HEENT Surgical History: Reports: Adenoidectomy, Eye Surgery, Myringotomy w Tube( s), Naso-Sinus Surgery, Oral Surgery, Tonsillectomy, Other (See Below). Denies : Laser Surgery, LASIK Other HEENT Surgeries/Procedures: Chronic left-sided TM perforation with recurrent otitis media including borderline sepsis, bilateral PE tubes 3 in senior net developer, tonsillectomy and adenoidectomy in senior net developer, nasal/ sinus surgery with possible cauterization secondary to snoring in senior net developer, strabismus correction in senior net developer, [place] teeth extraction Cardiovascular Surgical History: Reports: None. Denies: Varicose, Vascular Surgery Respiratory Surgical History: Reports: None. Denies: Thoracentesis GI Surgical History: Reports: None. Denies: Appendectomy, Cholecystectomy, Colonoscopy, EGD, Hernia, Abdominal, Hernia, Inguinal, Hernia Repair/Other Male Surgical History: Reports: Circumcision, Other (See Below). Denies: Vasectomy Other Male Surgeries/Procedures: Circumcision as an Endocrine Surgical History: Reports: None Neurological Surgical History: Reports: None. Denies: C-Spine, Discectomy, Laminectomy, Lumbar Spine, Sacral Spine, Spinal Fusion, Thoracic Spine Musculoskeletal Surgical History: Reports: None. Denies: Arthroscopic Procedure , Carpal Tunnel, Ganglion Cyst, Joint Replacement, ORIF, Shoulder Surgery Oncologic Surgical History: Reports: None Dermatological Surgical History: Reports: None - Past Imaging History Past Imaging History: Reports: CAT Scan (CT of the maxillofacial region on , CTA of the brain on 08/06/11), Ultrasound (Abdominal ultrasound on 07/23/15, renal ultrasound on 11/29/10) Social & Family History - Caffeine Use Caffeine Use: Reports: Soda (3 sodas per day). Denies: Coffee, Energy Drinks, Tea Caffeine Use Comment: soda - Living Situation & Occupation Living situation: Reports: Single (No children), Alone (Part-time caregiver as below) Occupation: Employed (Part-time at [employer]. Autism and secondary mental disability with caregiver) ED ROS GENERAL - Review of Systems Review Of Systems: See Below Constitutional: Reports: No Symptoms HEENT: Reports: No Symptoms Respiratory: Reports: No Symptoms Cardiovascular: Reports: No Symptoms Endocrine: Reports: No Symptoms GI/Abdominal: Reports: No Symptoms : Reports: No Symptoms Musculoskeletal: Reports: No Symptoms Skin: Reports: No Symptoms Neurological: Reports: Seizure (Pseudoseizures), Weakness Psychiatric: Reports: Mood Lability ED EXAM, NEURO - Physical Exam Exam: See Below Exam Limited By: No Limitations General Appearance: Alert, WD/WN, No Apparent Distress Ears: Normal External Exam, Normal Canal, Hearing Grossly Normal, Normal TMs Nose: Normal Inspection, Normal Mucosa, No Blood Throat/Mouth: Normal Inspection, Normal Lips, Normal Teeth, Normal Gums, Normal Oropharynx, Normal Voice, No Airway Compromise Head Exam: Atraumatic, Normocephalic Neck: Normal Inspection, Supple, Non-Tender, Full Range of Motion Respiratory/Chest: No Respiratory Distress Cardiovascular: Normal Peripheral Pulses, Regular Rate, Rhythm, No Edema, No Gallop, No JVD, No Murmur, No Rub GI/Abdominal: Normal Bowel Sounds, Soft, Non-Tender, No Organomegaly, No Distention, No Abnormal Bruit, No Mass (Male) Exam: Deferred Rectal (Males) Exam: Deferred Neurological: Alert, Normal Mood/Affect, Normal Dorsiflexion, CN II-XII Intact, Normal Plantar Flexion, Normal Gait, Normal Reflexes, No Motor/Sensory Deficits , Oriented x 3, Straight Leg Raise (L), Straight Leg Raise (R) Back Exam: Normal Inspection, Full Range of Motion, NT Extremities: Normal Inspection, Normal Range of Motion, Non-Tender, No Pedal Edema, Normal Capillary Refill Psychiatric: Normal Affect, Normal Mood Skin Exam: Warm, Dry, Intact, Normal Color, No Rash Course - Orders/Labs/Meds Labs: Laboratory Tests 02/06/18 02/06/18 Range/Units 18:15 18:15 WBC 10.4 H (4.0-10.2) K/uL RBC 5.46 H (4.33-5.41) M/uL Hgb 14.5 (13.1-16.8) g/dL Hct 43.4 (39.0-49.0) % MCV 79.5 L (84.0-98.0) fL MCH 26.6 L (28.2-33.3) pg MCHC 33.4 (31.7-36.0) g/dL RDW 15.6 H (11.2-14.1) % Plt Count 190 (150-350) K/uL Neut % (Auto) 63.5 (45.0-80.0) % Lymph % (Auto) 26.0 (10.0-50.0) % [place] % (Auto) 6.3 (2.0-14.0) % Eos % (Auto) 4.0 (0.0-5.0) % Baso % (Auto) 0.2 (0.0-2.0) % Neut # (Auto) 6.58 (1.40-7.00) K/uL Lymph # (Auto) 2.69 (0.50-3.50) K/uL [place] # (Auto) 0.65 (0.00-1.00) K/uL Eos # (Auto) 0.41 (0.00-0.50) K/uL Baso # (Auto) 0.02 (0.00-0.20) K/uL Sodium 140 (136-145) mmol/L Potassium 3.6 (3.5-5.1) mmol/L Chloride 104 (98-107) mmol/L Carbon Dioxide 26.7 (21.0-32.0) mmol/L BUN 13 (7-18) mg/dL Creatinine 0.66 (0.51-1.17) mg/dL Est Cr Clr Drug Dosing TNP Estimated GFR (MDRD) > 60 mL/min Glucose 141 H (74-106) mg/dL Calcium 9.1 (8.5-10.1) mg/dL Total Bilirubin 0.3 (0.2-1.0) mg/dL AST 31 (15-37) U/L ALT 56 (12-78) U/L Alkaline Phosphatase 92 (46-116) IU/L Total Protein 7.3 (6.4-8.2) g/dL Albumin 3.4 (3.4-5.0) g/dL Departure - Departure Time of Disposition: 19:30 Disposition: Home, Self-Care 01 Clinical Impression: Pseudoseizures - Discharge Information Referrals: Alida Castellanos NP [Primary Care Provider] - Forms: ED Department Discharge Care Plan Goals: Patient was examined with a normal neurological exam. Discussed with neurologist at [facility] in [place]. Both he and I agree that these are conversion disorder seizures and will need to see a psychiatrist as soon as possible. 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
== END 2018-02-06 19:33 | disposition home or self-care (01) ==
LOC: LL.ED 18:09
DX: R29.90 Unspecified symptoms and signs involving the nervous system (principal); Z88.5 Allergy status to narcotic agent; Z79.899 Other long term (current) drug therapy
CPT/HCPCS: 36000; 36415; 80053; 85025; 99285

== ENCOUNTER 2018-04-15 12:28 | Emergency (ER) | payer MEDICARE, MEDICAID ==
[2018-04-15 12:44] VITALS: BP 143/87
[2018-04-15 13:16] LABS: CHLORIDE,CL 103 mmol/L (98-107); SODIUM,NA 140 mmol/L (136-145)
--- NOTE | 2018-04-15 13:32 | EDM.PDOC ---
ED HPI GENERAL MEDICAL PROBLEM - General Chief Complaint: General Stated Complaint: Sleepy Time Seen by Provider: 04/15/18 13:07 Source of Information: Reports: Patient, Other (caregiver and mother) History Limitations: Reports: No Limitations - History of Present Illness INITIAL COMMENTS - FREE TEXT/NARRATIVE: Caregiver brought patient in to be seen as she felt that he seemed not his usual self today. She also felt he appeared more tired than usual. Patient denies any problems. Says he feels fine. He says he had just woken up from a nap when caregiver made these observations. He also says that he has not been sleeping well through the night since his grandfather recently. Patient wants to go home. Patient's mother came to the ER. She feels he is acting like his usual self. She does say that she feels he does not drink enough water and has poor dietary habits. - Related Data Allergies Allergy/AdvReac Type Severity Reaction Status Date / Time cefazolin sodium [From [facility]] Allergy Rash Verified 04/15/18 12:29 codeine Allergy Hyperactivi Verified 04/15/18 12:29 ty Home Meds: Home Meds Levothyroxine [Synthroid] 50 mcg PO ACBRK #30 tab 01/29/14 [Rx] Prazosin [Minpress] 1 mg PO BEDTIME PRN 01/29/14 [History] Escitalopram [Lexapro] 20 mg PO DAILY 02/05/17 [History] LORazepam 0.5 mg PO ASDIRECTED PRN 02/05/17 [History] Pediatric Multivit Comb No.136 [Children Multivitamin] 1 tab PO DAILY 02/05/17 [ History] Naproxen 500 mg PO Q6HR PRN 05/20/17 [History] Cyclobenzaprine [Flexeril] 5 mg PO DAILY PRN 09/06/17 [History] Vit C/Stahl & Celery Ex/Grp E [Tart Stahl] 2 tab PO DAILY 09/06/17 [History] Past Medical History HEENT History: Reports: Allergic Rhinitis, Hard of Hearing, Otitis Media, Other (See Below) Other HEENT History: Chronic recurrent bilateral otitis media with history of chronic left-sided TM perforation with sensitivity to loud noises and some left- sided hearing loss however no hearing aide therapy, left-sided mastoiditis on 29/06 with no surgery required Cardiovascular History: Reports: None Other Cardiovascular History: Obesity with fatty liver Respiratory History: Reports: None Gastrointestinal History: Reports: Cholelithiasis, Other (See Below) Other Gastrointestinal History: Fatty liver by ultrasound, nonsymptomatic cholelithiasis/sludge Genitourinary History: Reports: None Musculoskeletal History: Reports: Arthritis, Back Pain, Chronic, Fracture, Gout , Neck Pain, Chronic, Osteoarthritis, Other (See Below) Other Musculoskeletal History: Right fifth metatarsal fracture on 01/11/10 Neurological History: Reports: Headaches, Chronic, Other (See Below) Other Neuro History: Chronic tension headaches, autism Psychiatric History: Reports: ADHD, Anxiety, Autism, Depression, Emotional Problems, Psych Hospitalization(s), Suicide Attempt, Suicidal Ideation, Other ( See Below) Other Psychiatric History: Autism with mental deficits/mild retardation, prazosin therapy for nightmares seldom required; history of suicidal ideation and attempt on 09/29/11 with inpatient psychiatric care Endocrine/Metabolic History: Reports: Hypothyroidism, Obesity/BMI 30+, Other ( See Below) (peristently elevated blood sugars.) Hematologic History: Reports: None 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 PE tubes 3 in early intervention school psychologist, tonsillectomy and adenoidectomy in early intervention school psychologist, nasal/ sinus surgery with possible cauterization secondary to snoring in early intervention school psychologist, strabismus correction in early intervention school psychologist, [place] teeth extraction Cardiovascular Surgical History: Reports: None Respiratory Surgical History: Reports: None GI Surgical History: Reports: None Male Surgical History: Reports: Circumcision, Other (See Below) Other Male Surgeries/Procedures: Circumcision as an Endocrine Surgical History: Reports: None Neurological Surgical History: Reports: None Musculoskeletal Surgical History: Reports: None Oncologic Surgical History: Reports: None Dermatological Surgical History: Reports: None - Past Imaging History Past Imaging History: Reports: CAT Scan (CT of the maxillofacial region on , CTA of the brain on 08/06/11), Ultrasound (Abdominal ultrasound on 07/23/15, renal ultrasound on 11/29/10) Social & Family History - Tobacco Use Smoking Status *Q: Current Every Day Smoker Years of Tobacco use: 6 Packs/Tins Daily: 1 Smoking Cessation Information Provided To Patient: Patient Refused - Caffeine Use Caffeine Use: Reports: Soda Caffeine Use Comment: soda - Recreational Drug Use Recreational Drug Use: No - Living Situation & Occupation Living situation: Reports: Single (No children), Alone (Part-time caregiver as below) Occupation: Employed (Part-time at [employer]. Autism and secondary mental disability with caregiver) ED ROS GENERAL - Review of Systems Review Of Systems: See Below Constitutional: Reports: No Symptoms HEENT: Reports: No Symptoms Respiratory: Reports: No Symptoms Cardiovascular: Reports: No Symptoms GI/Abdominal: Reports: No Symptoms : Reports: No Symptoms Musculoskeletal: Reports: No Symptoms (no acute changes from baseline) Skin: Reports: No Symptoms Neurological: Reports: No Symptoms Psychiatric: Reports: No Symptoms ED EXAM, GENERAL - Physical Exam Exam: See Below Exam Limited By: No Limitations General Appearance: Alert, No Apparent Distress, Obese Eye Exam: Bilateral Eye: EOMI, PERRL Ears: Normal External Exam Nose: No: Nasal Deformity, Nasal Swelling, Nasal Drainage Throat/Mouth: Normal Lips, Normal Voice, No Airway Compromise Head: Atraumatic, Normocephalic Neck: Supple, Non-Tender, Full Range of Motion Respiratory/Chest: No Respiratory Distress, Lungs Clear, Normal Breath Sounds, No Accessory Muscle Use Cardiovascular: Normal Peripheral Pulses, Regular Rate, Rhythm, No Murmur GI/Abdominal: Normal Bowel Sounds, Soft, Non-Tender (Male) Exam: Deferred Rectal (Males) Exam: Deferred Back Exam: No: Muscle Spasm Extremities: Normal Inspection, Normal Capillary Refill Neurological: Alert, Oriented, Other (grossly neurologically intact) Psychiatric: Normal Affect, Normal Mood Skin Exam: Warm, Dry, Intact, Normal Color Course - Vital Signs Last Recorded V/S: Last Vital Signs Temp 36.9 C 04/15/18 12:43 Pulse 81 04/15/18 12:43 Resp 18 04/15/18 12:43 BP 143/87 H 04/15/18 12:43 Pulse Ox 95 04/15/18 12:43 - Orders/Labs/Meds Labs: Laboratory Tests 04/15/18 04/15/18 04/15/18 Range/Units 12:55 13:00 13:00 WBC 9.3 (4.0-10.2) K/uL RBC 5.73 H (4.33-5.41) M/uL Hgb 15.5 (13.1-16.8) g/dL Hct 45.8 (39.0-49.0) % MCV 79.9 L (84.0-98.0) fL MCH 27.1 L (28.2-33.3) pg MCHC 33.8 (31.7-36.0) g/dL RDW 15.7 H (11.2-14.1) % Plt Count 198 (150-350) K/uL Neut % (Auto) 59.6 (45.0-80.0) % Lymph % (Auto) 30.5 (10.0-50.0) % [place] % (Auto) 5.8 (2.0-14.0) % Eos % (Auto) 3.7 (0.0-5.0) % Baso % (Auto) 0.4 (0.0-2.0) % Neut # (Auto) 5.54 (1.40-7.00) K/uL Lymph # (Auto) 2.84 (0.50-3.50) K/uL [place] # (Auto) 0.54 (0.00-1.00) K/uL Eos # (Auto) 0.34 (0.00-0.50) K/uL Baso # (Auto) 0.04 (0.00-0.20) K/uL Sodium 140 (136-145) mmol/L Potassium 3.7 (3.5-5.1) mmol/L Chloride 103 (98-107) mmol/L Carbon Dioxide 25.7 (21.0-32.0) mmol/L BUN 12 (7-18) mg/dL Creatinine 0.69 (0.51-1.17) mg/dL Est Cr Clr Drug Dosing 161.09 mL/min Estimated GFR (MDRD) > 60 mL/min Glucose 150 H (74-106) mg/dL Hemoglobin A1c (4.3-5.7) % Calcium 9.2 (8.5-10.1) mg/dL Total Bilirubin 0.2 (0.2-1.0) mg/dL AST 39 H (15-37) U/L ALT 67 (12-78) U/L Alkaline Phosphatase 98 (46-116) IU/L Total Protein 7.4 (6.4-8.2) g/dL Albumin 3.6 (3.4-5.0) g/dL Specimen Type Urinvoid Urine Color Yellow Urine Appearance Clear Urine pH 7.5 (5.0-9.0) Ur Specific [place] 1.025 (1.005-1.030) Urine Protein Negative (NEGATIVE) mg/dL Urine Glucose (UA) Negative (NEGATIVE) mg/dL Urine Ketones Trace H (NEGATIVE) mg/dL Urine Occult Blood Negative (NEGATIVE) Urine Nitrite Negative (NEGATIVE) Urine Bilirubin Negative (NEGATIVE) Urine Urobilinogen 0.2 (0.2-1.0) E.U./dL Ur Leukocyte Esterase Negative (NEGATIVE) Urine RBC 0-5 /HPF Urine WBC 0-5 /HPF Ur Epithelial Cells Few /LPF Urine Bacteria Few (NONE TO FEW) /HPF 04/15/18 Range/Units 13:00 WBC (4.0-10.2) K/uL RBC (4.33-5.41) M/uL Hgb (13.1-16.8) g/dL Hct (39.0-49.0) % MCV (84.0-98.0) fL MCH (28.2-33.3) pg MCHC (31.7-36.0) g/dL RDW (11.2-14.1) % Plt Count (150-350) K/uL Neut % (Auto) (45.0-80.0) % Lymph % (Auto) (10.0-50.0) % [place] % (Auto) (2.0-14.0) % Eos % (Auto) (0.0-5.0) % Baso % (Auto) (0.0-2.0) % Neut # (Auto) (1.40-7.00) K/uL Lymph # (Auto) (0.50-3.50) K/uL [place] # (Auto) (0.00-1.00) K/uL Eos # (Auto) (0.00-0.50) K/uL Baso # (Auto) (0.00-0.20) K/uL Sodium (136-145) mmol/L Potassium (3.5-5.1) mmol/L Chloride (98-107) mmol/L Carbon Dioxide (21.0-32.0) mmol/L BUN (7-18) mg/dL Creatinine (0.51-1.17) mg/dL Est Cr Clr Drug Dosing mL/min Estimated GFR (MDRD) mL/min Glucose (74-106) mg/dL Hemoglobin A1c 6.1 H (4.3-5.7) % Calcium (8.5-10.1) mg/dL Total Bilirubin (0.2-1.0) mg/dL AST (15-37) U/L ALT (12-78) U/L Alkaline Phosphatase (46-116) IU/L Total Protein (6.4-8.2) g/dL Albumin (3.4-5.0) g/dL Specimen Type Urine Color Urine Appearance Urine pH (5.0-9.0) Ur Specific [place] (1.005-1.030) Urine Protein (NEGATIVE) mg/dL Urine Glucose (UA) (NEGATIVE) mg/dL Urine Ketones (NEGATIVE) mg/dL Urine Occult Blood (NEGATIVE) Urine Nitrite (NEGATIVE) Urine Bilirubin (NEGATIVE) Urine Urobilinogen (0.2-1.0) E.U./dL Ur Leukocyte Esterase (NEGATIVE) Urine RBC /HPF Urine WBC /HPF Ur Epithelial Cells /LPF Urine Bacteria (NONE TO FEW) /HPF - Re-Assessments/Exams Free Text/Narrative Re-Assessment/Exam: 04/15/18 13:44 Unremarkable exam. Trace ketones in urine. Patient has not yet eaten today. CBC/Chem/UA overall unremarkable except for elevated blood glucose. A1C added which was elevated at 6.1 Time spend with patient reviewing good eating habits, such as drinking water instead of sodas, and avoiding processed and high carb food. Patient refused to believe that he was becoming diabetic and said that he exercises and sometimes has a salad now and then. His mother was more open to discussion of dietary change as patient's father is also diabetic and has made adjustments in his own diet. She made an appointment for patient to follow up [place] [facility] [place]. Patient otherwise appears to be his usual self. OK to discharge home. They are to watch for changes and follow up otherwise as needed. 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 Drink more water, not sodas/artificial drinks. Eat regularly. Choose whole foods and avoid processed/high carb foods. Follow up with [facility] [place] for Hgb A1C test/diabetes. Follow up otherwise as needed.
== END 2018-04-15 13:51 | disposition home or self-care (01) ==
LOC: LL.ED 12:28
DX: F90.9 Attention-deficit hyperactivity disorder, unspecified type (principal); E11.9 Type 2 diabetes mellitus without complications; E03.9 Hypothyroidism, unspecified; E66.01 Morbid (severe) obesity due to excess calories; F17.210 Nicotine dependence, cigarettes, uncomplicated; Z79.899 Other long term (current) drug therapy; Z68.41 Body mass index [BMI] 40.0-44.9, adult
CPT/HCPCS: 36415; 80053; 81001; 83036; 85025; 99283

== ENCOUNTER 2018-10-28 07:06 | Emergency (ER) | payer MEDICARE, MEDICAID ==
--- NOTE | 2018-10-28 07:28 | EDM.PDOC ---
ED HPI GENERAL MEDICAL PROBLEM - General Chief Complaint: Respiratory Problem Stated Complaint: cough, shortness of breath Time Seen by Provider: 10/28/18 07:25 Source of Information: Reports: Patient, Old Records ([facility] chart/EMR) History Limitations: Reports: Altered Mental Status - History of Present Illness INITIAL COMMENTS - FREE TEXT/NARRATIVE: The patient walked into the emergency room for evaluation of a nonproductive cough and some dyspnea with symptoms starting at about 7 AM this morning. Patient has yet to start his CPAP for his sleep apnea. He was using incentive spirometry earlier this morning. The patient did obtain an influenza booster this season by his history, although he is a somewhat poor historian secondary to his baseline mental status. By nurse's history the patient has had a pseudo- near syncopal episode when walking into the emergency room with no evidence of seizure activity, incontinence, fall, injury, etc.. He does have a history of similar episodes in the past as below. The patient denies any chest pain/ pressure, heart flutter, dizziness, orthostasis, orthopnea, diaphoresis, paresthesias, recent decreased exercise tolerance, or any other anginal-type symptoms prior to coming to the emergency room. No recent history of abdominal pain, heartburn, nausea, diarrhea, melena, gross hematochezia, or any food intolerance, including fatty foods, etc.. He denies any gross hematuria, colic, current UTI symptoms. The patient also denies any recent fever, wheezing, etc.. No history of recent headaches, visual changes, diplopia, change in mental status, or other change in neurological status. He also denies any known exposure to infection. No recent history of pain or discomfort. Onset: Today, Gradual Onset Date: 10/28/18 Onset Time: 07:00 Duration: Other (No pain) Quality: Reports: Same as Previous Episode Severity: Mild Improves with: Reports: None Worsens with: Reports: None Context: Reports: Other (As above). Denies: Sick Contact, Trauma Associated Symptoms: Reports: Cough, Shortness of Breath, Syncope (Pseudo-near- syncopal episode as above). 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: Other (see below) (As above) - Related Data Allergies Allergy/AdvReac Type Severity Reaction Status Date / Time cefazolin sodium [From [facility]] Allergy Rash Verified 10/28/18 07:11 codeine Allergy Hyperactivi Verified 10/28/18 07:11 ty Home Meds: Home Meds Prazosin [Minpress] 1 mg PO BEDTIME PRN 01/29/14 [History] Escitalopram [Lexapro] 20 mg PO DAILY 02/05/17 [History] LORazepam 0.5 mg PO ASDIRECTED PRN 02/05/17 [History] Pediatric Multivit Comb No.136 [Children Multivitamin] 1 tab PO DAILY 02/05/17 [ History] Cyclobenzaprine [Flexeril] 5 mg PO DAILY PRN 09/06/17 [History] Vit C/Stahl & Celery Ex/Grp E [Tart Stahl] 2 tab PO DAILY 09/06/17 [History] Levothyroxine [Synthroid] 50 mcg PO BEDTIME 07/28/18 [History] busPIRone [Buspar] 7.5 mg PO BID 08/08/18 [History] Naproxen [Naprosyn] 500 mg PO Q12HR PRN #1 tab 10/28/18 [Rx] Past Medical History HEENT History: Reports: Allergic Rhinitis, Hard of Hearing, Impaired Vision, Otitis Media, Other (See Below). Denies: Cataract, Glaucoma, Macular Degeneration, Retinal Detachment Other HEENT History: Chronic recurrent bilateral otitis media with history of chronic left-sided TM perforation with sensitivity to loud noises and some left- sided hearing loss however no hearing aide therapy, left-sided mastoiditis on 29/06 with no surgery required Cardiovascular History: Reports: Syncope. Denies: Afib, Aneurysm, Arrhythmia, Blood Clots/VTE/DVT, CAD, Heart Murmur, High Cholesterol, Hypertension, [place] Other Cardiovascular History: Obesity with fatty liver. Recurrent pseudo-near syncopal episodes and/or pseudoseizures with previous evaluations in this emergency room on 07/28/18 and 02/04/18. Respiratory History: Reports: Bronchitis, Recurrent, Sleep Apnea, Other (See Below). 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 Moderate Obstructive sleep apnea with patient still waiting on his CPAP Gastrointestinal History: Reports: Cholelithiasis, Other (See Below). Denies: Bowel Obstruction, Celiac Disease, Chronic Constipation, Chronic Diarrhea, Gastritis, GERD, GI Bleed, Hepatitis, Inflammatory Bowel Disease, Irritable Bowel Syndrome, Jaundice, Pancreatitis, PUD Other Gastrointestinal History: Fatty liver by ultrasound, nonsymptomatic cholelithiasis/sludge Genitourinary History: Reports: None. Denies: Acute Renal Failure, BPH, Chronic Renal Insuffiency, Renal Calculus, STD, Urinary Incontinence, UTI, Recurrent Musculoskeletal History: Reports: Arthritis, Back Pain, Chronic, Fracture, Gout , Neck Pain, Chronic, Osteoarthritis, Other (See Below). Denies: Amputation, Osteoporosis, RA, SLE Other Musculoskeletal History: Right fifth metatarsal fracture on 01/11/10 Neurological History: Reports: Headaches, Chronic, Seizure, Other (See Below). Denies: Alzheimers Disease, Cerebral Aneurysms, Concussion, CVA, Head Trauma, Migraines, MS, Neuropathy, Peripheral, Parkinson's, TIA, Vertigo Other Neuro History: Chronic tension headaches, autism. Recurrent pseudoseizures as above. Psychiatric History: Reports: ADHD, Anxiety, Autism, Depression, Emotional Problems, Psych Hospitalization(s), Suicide Attempt, Suicidal Ideation, Other ( See Below). Denies: Abuse, Victim of, Addiction, PTSD Other Psychiatric History: Autism with mental deficits/mild retardation, prazosin therapy for nightmares seldom required; history of suicidal ideation and attempt on 09/29/11 with inpatient psychiatric care Endocrine/Metabolic History: Reports: Diabetes, Type II, Hypothyroidism, Obesity /BMI 30+, Other (See Below). Denies: Diabetes Mellitus, Type 3c, IDDM Hematologic History: Reports: Other (See Below). Denies: Anemia, Blood Transfusion(s), Iron Deficiency Other Hematologic History: Microcytosis with no anemia. Immunologic History: Reports: None. Denies: AIDS, HIV, SLE Oncologic (Cancer) History: Reports: None. Denies: Basal Cell Carcinoma, Hodgkin's Lymphoma, Leukemia, Lymphoma, Malignant Melanoma, Non-Hodgkin's Lymphoma, Squamous Cell Carcinoma Dermatologic History: Reports: None. Denies: Eczema, Psoriasis - Infectious Disease History Infectious Disease History: Reports: Chicken Pox, Influenza. Denies: C- Difficile, Measles, Meningitis, Mononucleosis, MRSA, Mumps, Rheumatic Fever, Rubella, Scarlet Fever, Shingles, TB, VRE - Past Surgical History Head Surgeries/Procedures: Reports: None HEENT Surgical History: Reports: Adenoidectomy, Eye Surgery, Myringotomy w Tube( s), Naso-Sinus Surgery, Oral Surgery, Tonsillectomy, Other (See Below). 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 Denies: Varicose Respiratory Surgical History: Reports: None. Denies: Thoracentesis GI Surgical History: Reports: None. Denies: Appendectomy, Cholecystectomy, Colonoscopy, EGD, Hernia, Abdominal, Hernia, Inguinal, Hernia Repair/Other Male Surgical History: Reports: Circumcision, Other (See Below). Denies: Vasectomy Other Male Surgeries/Procedures: Circumcision as an Endocrine Surgical History: Reports: None Neurological Surgical History: Reports: None. Denies: C-Spine, Discectomy, Laminectomy, Lumbar Spine, Sacral Spine, Spinal Fusion, Thoracic Spine, Vertebroplasty Musculoskeletal Surgical History: Reports: None. Denies: Arthroscopic Procedure , Carpal Tunnel, Ganglion Cyst, Joint Replacement, Knee Replacement, ORIF, Shoulder Surgery Oncologic Surgical History: Reports: None Dermatological Surgical History: Reports: None - Past Imaging History Past Imaging History: Reports: CAT Scan (CT of the chest on 08/31/18. CT of the head, cervical spine, and lumbar spine on 08/08/18. CT of the head on 02/04/18. CT of the maxillofacial region on 11/27/10, CTA of the brain on 08/06/11), HIDA Scan ( Negative HIDA scan on 09/23/18), Sleep Study (Positive sleep study on 08/24/18), Ultrasound (Abdominal ultrasound on 07/23/15, renal ultrasound on 11/29/10) Social & Family History - Family History Respiratory: Reports: Sleep Apnea, Other (See Below) Other Respiratory Family Hisory: Mother with sleep apnea - Tobacco Use Smoking Status *Q: Current Every Day Smoker Tobacco Use Within Last Twelve Months: Cigarettes Years of Tobacco use: 6 Packs/Tins Daily: 1 Packs/Tins Daily Comment: Maximum use of 3 packs per day. Used Tobacco, but Quit: No Smoking Cessation Information Provided To Patient: Yes Second Hand Smoke Exposure: No Second Hand Smoke Education Provided: No - Caffeine Use Caffeine Use: Reports: Soda (3 sodas per day). Denies: Coffee, Energy Drinks, Tea - Alcohol Use Alcohol Use History: No Days Per Week of Alcohol Use: 0 Number of Drinks Per Day: 1 Number of Drinks Per Day Comment: No previous DWIs, problems with alcohol abuse , etc. Total Drinks Per Week: 0 Alcohol Use in Last Twelve Months: Yes Alcohol Use Frequency: Rarely - Recreational Drug Use Recreational Drug Use: No Drug Use in Last 12 Months: No Recreational Drug Type: Denies: Amphetamines (Speed), Cocaine, Heroin, Inhalants (Glues, Solvents, Aerosols), LSD (Acid), Marijuana/Hashish, Morphine, Oxycodone - Living Situation & Occupation Living situation: Reports: Single (No children), Alone (Part-time caregiver as below) Occupation: Employed (Part-time at [employer]. Autism and secondary mental disability with caregiver) ED ROS GENERAL - Review of Systems Review Of Systems: ROS reveals no pertinent complaints other than HPI. ED EXAM, GENERAL - Physical Exam Exam: See Below Exam Limited By: No Limitations General Appearance: Alert, WD/WN, No Apparent Distress, Anxious (Mild) Eye Exam: Bilateral Eye: Corneal Abrasion, Normal Fundi, Normal Inspection (No nystagmus. Patient wearing glasses.), PERRL Ears: Normal External Exam, Normal Canal, Hearing Grossly Normal, Normal TMs ( Scar tissue from previous PE tubes bilaterally) Nose: Normal Mucosa, No Blood, Clear Rhinorrhea (Mild bilateral) Throat/Mouth: Normal Inspection, Normal Lips, Normal Teeth, Normal Gums, Normal Oropharynx, Normal Voice, No Airway Compromise. No: Dysphagia, Inflammation Head: Atraumatic, Normocephalic. No: Facial Swelling, Facial Tenderness, Sinus Tenderness Neck: Normal Inspection, Supple, Non-Tender, Full Range of Motion. No: Carotid Bruit, Lymphadenopathy (L), Lymphadenopathy (R), Thyromegaly Respiratory/Chest: No Respiratory Distress, Lungs Clear, Normal Breath Sounds, No Accessory Muscle Use, Chest Non-Tender. No: Stridor, Accessory Muscle Use, Retractions Cardiovascular: Normal Peripheral Pulses, Regular Rate, Rhythm, No Edema, No Gallop, No JVD, No Murmur, No Rub. No: Gallop/S3, Gallop/S4, Friction Rub Peripheral Pulses: 2+: Radial (L), Radial (R), Posterior Tibial (L), Posterior Tibial (R) GI/Abdominal: Normal Bowel Sounds, Soft, Non-Tender, No Organomegaly, No Distention, No Abnormal Bruit, No Mass, Pelvis Stable, Other (Obese). No: Guarding (Male) Exam: Deferred Rectal (Males) Exam: Deferred Back Exam: Normal Inspection, Full Range of Motion. No: CVA Tenderness (L), CVA Tenderness (R), Muscle Spasm Extremities: Normal Inspection, Normal Range of Motion, Non-Tender, No Pedal Edema, Normal Capillary Refill. No: Kaylynn's Sign Neurological: Alert, Oriented, CN II-XII Intact, Normal Cognition, Normal Gait, Normal Reflexes (Negative Babinski's), No Motor/Sensory Deficits, Other ( Autistic) Psychiatric: Anxious (Mild). No: Depressed Mood Skin Exam: Warm, Dry, Intact, Normal Color, No Rash. No: Diaphoretic, Jaundice , Pallor, Wound/Incision Lymphatic: No Adenopathy Course - Vital Signs Last Recorded V/S: Last Vital Signs Temp 36.8 C 10/28/18 07:10 Pulse 75 10/28/18 08:48 Resp 15 10/28/18 08:48 BP 102/69 10/28/18 08:48 Pulse Ox 94 L 10/28/18 08:48 Vital Signs - 24 hr 10/28/18 10/28/18 10/28/18 07:10 07:25 08:10 Temperature [ 36.8 C Oral] Pulse, 94 84 80 Peripheral [ Brachial] Respiratory 22 H 19 18 Rate Blood Pressure 160/85 H 124/69 125/75 [Right Upper Arm] O2 Sat by Pulse 96 94 L 93 L Oximetry 10/28/18 10/28/18 08:33 08:48 Temperature [ Oral] Pulse, 74 75 Peripheral [ Brachial] Respiratory 18 15 Rate Blood Pressure 122/72 102/69 [Right Upper Arm] O2 Sat by Pulse 93 L 94 L Oximetry - Orders/Labs/Meds Orders: Active Orders 24 hr Category Date Time Status Cardiac Monitoring [RC] . DIRECTED Care 10/28/18 07:28 Active Chest 2V [CR] Urgent Exams 10/28/18 07:29 Taken CULTURE STREP A CONFIRMATION [RM] Stat Lab 10/28/18 07:35 Results PROLACTIN [REF] Stat Lab 10/28/18 07:38 Received STREP SCRN A RAPID W CULT CONF [RM] Stat Lab 10/28/18 07:35 Received Obtain Past Medical Record [OM.PC] Routine Oth 10/28/18 07:28 Active Labs: Laboratory Tests 10/28/18 10/28/18 10/28/18 Range/Units 07:38 07:38 07:38 WBC 10.5 H (4.0-10.2) K/uL RBC 5.30 (4.33-5.41) M/uL Hgb 14.4 (13.1-16.8) g/dL Hct 42.5 (39.0-49.0) % MCV 80.2 L (84.0-98.0) fL MCH 27.2 L (28.2-33.3) pg MCHC 33.9 (31.7-36.0) g/dL RDW 15.1 H (11.2-14.1) % Plt Count 192 (150-350) K/uL Neut % (Auto) 55.5 (45.0-80.0) % Lymph % (Auto) 37.0 (10.0-50.0) % [place] % (Auto) 4.4 (2.0-14.0) % Eos % (Auto) 2.8 (0.0-5.0) % Baso % (Auto) 0.3 (0.0-2.0) % Neut # (Auto) 5.85 (1.40-7.00) K/uL Lymph # (Auto) 3.90 H (0.50-3.50) K/uL [place] # (Auto) 0.46 (0.00-1.00) K/uL Eos # (Auto) 0.30 (0.00-0.50) K/uL Baso # (Auto) 0.03 (0.00-0.20) K/uL Sodium 144 (136-145) mmol/L Potassium 3.3 L (3.5-5.1) mmol/L Chloride 106 (98-107) mmol/L Carbon Dioxide 27.3 (21.0-32.0) mmol/L BUN 17 (7-18) mg/dL Creatinine 0.74 (0.51-1.17) mg/dL Est Cr Clr Drug Dosing 140.10 mL/min Estimated GFR (MDRD) > 60 mL/min Glucose 153 H (74-106) mg/dL Lactic Acid 1.6 (0.4-2.0) mmol/L Calcium 9.0 (8.5-10.1) mg/dL Total Bilirubin 0.3 (0.2-1.0) mg/dL AST 28 (15-37) U/L ALT 57 (12-78) U/L Alkaline Phosphatase 97 (46-116) IU/L Total Protein 7.2 (6.4-8.2) g/dL Albumin 3.5 (3.4-5.0) g/dL Microbiology 10/28/18 07:35 Influenza Type A Antigen Screen - Final Nasal, Left NEGATIVE INFLUENZA A VIRUS AG Influenza Type B Antigen Screen - Final NEGATIVE INFLUENZA B VIRUS AG 10/28/18 07:35 Group A Streptococcus Rapid Screen - Final Throat NEGATIVE STREP A SCREEN Meds: Medications Discontinued Medications Generic Name Dose Route Start Last Admin Trade Name Freq PRN Reason Stop Dose Admin Potassium Chloride 20 meq 10/28/18 08:43 10/28/18 08:49 Klor-Con M20 PO 10/28/18 08:44 20 meq ONETIME ONE Administration - Radiology Interpretation Free Text/Narrative:: slat twister shows normal sinus rhythm with heart rate in the 70s to 80s with no ectopy or arrhythmia Chest x-ray, PA and lateral, shows mild pulmonary obstructive disease with possible pulmonary hypertension with additional mild borderline cardiomegaly, however no CHF, pulmonary infiltrates, pneumothorax, etc. Departure - Departure Time of Disposition: 09:00 Disposition: Home, Self-Care 01 Condition: Good Clinical Impression: Pseudoseizures, Mixed anxiety depressive disorder, Hypothyroidism, Morbid obesity, Tobacco abuse counseling, Type 2 diabetes mellitus, Osteoarthritis, URI , acute, Sleep apnea, Hypokalemia - Discharge Information *PRESCRIPTION DRUG MONITORING PROGRAM REVIEWED*: Not Applicable *COPY OF PRESCRIPTION DRUG MONITORING REPORT IN PATIENT ASHLEY: Not Applicable Prescriptions: Naproxen [Naprosyn] 500 mg PO Q12HR PRN #1 tab PRN Reason: Pain/Fever Instructions: Steps to Quit Smoking, [id number], Heart-Healthy Eating Plan, [id number], Upper Respiratory Infection, Adult, [id number], Potassium Content of Foods Referrals: Alida Castellanos NP [Primary Care Provider] - Forms: ED Department Discharge Additional Instructions: 1. Follow up with your regular provider in 10-14 days for reevaluation and recommended repeat fasting basic metabolic panel and glycosylated hemoglobin. In addition consider possible fasting lipid panel. Bring these discharge instructions with you to that visit. 2. Notify your caregiver and mother concerning your decrease in Naprosyn therapy today 3. Hygiene precautions as discussed 4. Stop all tobacco use ESTIVEN as directed/per provided information and consider contacting Quit LIne, etc.. 5. Immediately after this visit verify that your cellular telephone's voicemail has been activated and is empty. Also verify that your home telephone 's answering machine is operating properly and has space to receive messages. Note that it is sometimes necessary for us to be able to contact you at a later date to discuss your medical care. 6. Please remember that we are ALWAYS here for you and want to answer any questions you may have. Feel free to call the hospital any time and we call you back ESTIVEN. 7. Talk with your caregiver and mother about getting your CPAP mask ESTIVEN. 8. Compliance with high potassium, low fat diet and continued weight loss in moderation as discussed 9. OTC cold and cough medications as needed/as discussed - Problem List & Annotations (1) URI, acute SNOMED Code(s): 74640304 Code(s): J06.9 - ACUTE UPPER RESPIRATORY INFECTION, UNSPECIFIED Status: Acute Priority: High Current Visit: No Onset Date: ~10/28/18 Annotation/ Comment:: Mild URI symptoms including viral bronchitis. He may continue incentive spirometry at home. Otherwise symptomatic relief and OTC cold medications as needed. (2) Osteoarthritis SNOMED Code(s): 126898995 Code(s): M19.90 - UNSPECIFIED OSTEOARTHRITIS, UNSPECIFIED SITE Status: Chronic Priority: Medium Current Visit: No Annotation/Comment:: Stable by history. Note the patient is taking excessive amounts of Naprosyn with dose adjusted at discharge. Qualifiers: Osteoarthritis location: multiple joints Osteoarthritis type: primary Qualified Code(s): M15.0 - Primary generalized (osteo)arthritis (3) Sleep apnea SNOMED Code(s): 60264382 Code(s): G47.30 - SLEEP APNEA, UNSPECIFIED Status: Chronic Priority: Medium Current Visit: No Annotation/Comment:: Patient has yet to obtain his CPAP machine. He was encouraged to do so ESTIVEN to his caregiver, mother, etc. Weight Loss in moderation also advisable with dietary information provided at discharge. Blood pressure was somewhat elevated initially however normal at time of discharge without therapy. Note borderline pulmonary obstructive disease by today's chest x-ray with saturation of PFTs, medical therapy, etc. depending on his clinical course. Qualifiers: Sleep apnea type: obstructive Qualified Code(s): G47.33 - Obstructive sleep apnea (adult) (pediatric) (4) Hypothyroidism SNOMED Code(s): 96110997 Code(s): E03.9 - HYPOTHYROIDISM, UNSPECIFIED Status: Chronic Priority: Medium Current Visit: No Annotation/Comment:: Currently under therapy (5) Mixed anxiety depressive disorder SNOMED Code(s): 913725659 Code(s): F41.8 - OTHER SPECIFIED ANXIETY DISORDERS Status: Chronic Priority: Medium Current Visit: No Annotation/Comment:: Stable by history, although note pseudo-near syncopal episode in the emergency room today with normal telemetry and no evidence of seizure activity, etc.. Continue to observe closely by his regular providers. (6) Pseudoseizures SNOMED Code(s): 025394642 Code(s): F44.5 - CONVERSION DISORDER WITH SEIZURES OR CONVULSIONS Status: Chronic Priority: Medium Current Visit: No Annotation/Comment:: As above. Prolactin level drawn with results pending. No evidence of seizure activity, incontinence, postictal sedation, etc. today. Note autism and behavioral disorders in the past as above. (7) Tobacco abuse counseling SNOMED Code(s): 973868181, 456401560, 103040564 Code(s): Z71.6 - TOBACCO ABUSE COUNSELING Status: Chronic Priority: Medium Current Visit: No Annotation/Comment:: Tobacco cessation strongly encouraged with information provided at discharge. He is resistant to tobacco cessation, however. (8) Type 2 diabetes mellitus SNOMED Code(s): 18308231 Code(s): E11.9 - TYPE 2 DIABETES MELLITUS WITHOUT COMPLICATIONS Status: Chronic Priority: Medium Current Visit: No Annotation/Comment:: Weight loss in moderation as well. 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 Dietary information concerning potassium content in food also provided. Close follow-up by regular provider as per discharge instructions. - Problem List Review Problem List Initiated/Reviewed/Updated: Yes - My Orders Last 24 Hours: My Active Orders 10/28/18 07:28 Cardiac Monitoring [RC] . DIRECTED Obtain Past Medical Record [OM.PC] Routine 10/28/18 07:29 Chest 2V [CR] Urgent 10/28/18 07:35 CULTURE STREP A CONFIRMATION [RM] Stat STREP SCRN A RAPID W CULT CONF [RM] Stat 10/28/18 07:38 PROLACTIN [REF] Stat - Assessment/Plan Last 24 Hours: My Active Orders 10/28/18 07:28 Cardiac Monitoring [RC] . DIRECTED Obtain Past Medical Record [OM.PC] Routine 10/28/18 07:29 Chest 2V [CR] Urgent 10/28/18 07:35 CULTURE STREP A CONFIRMATION [RM] Stat STREP SCRN A RAPID W CULT CONF [RM] Stat 10/28/18 07:38 PROLACTIN [REF] Stat Assessment:: As above Plan: As above. Extensive precautions were given to the patient, who is in agreement with the treatment plan. See Patient Instructions for further treatment and plan.
[2018-10-28 08:39] LABS: CHLORIDE,CL 106 mmol/L (98-107); SODIUM,NA 144 mmol/L (136-145)
[2018-10-28 08:48] VITALS: BP 102/69
[2018-10-28] MEDS: Potassium Chloride 20 MEQ Tab.ER PO ONE (08:49)
== END 2018-10-28 09:00 | disposition home or self-care (01) ==
LOC: LL.ED 07:06
DX: J06.9 Acute upper respiratory infection, unspecified (principal); E03.9 Hypothyroidism, unspecified; E11.9 Type 2 diabetes mellitus without complications; M19.90 Unspecified osteoarthritis, unspecified site; G47.33 Obstructive sleep apnea (adult) (pediatric); F41.8 Other specified anxiety disorders; R56.9 Unspecified convulsions; E87.6 Hypokalemia; Z71.6 Tobacco abuse counseling; F17.210 Nicotine dependence, cigarettes, uncomplicated; Z79.899 Other long term (current) drug therapy; Z88.5 Allergy status to narcotic agent; Z88.8 Allergy status to other drugs, medicaments and biological substances
CPT/HCPCS: 36415; 71046; 80053; 83605; 84146; 85025; 87081; 87430; 87804; 99284; 99285-25; A9270-GY

== ENCOUNTER 2018-11-02 21:58 | Emergency (ER) | payer MEDICARE, MEDICAID ==
[2018-11-02 22:18] VITALS: BP 130/71
--- NOTE | 2018-11-02 22:19 | EDM.PDOC ---
ED HPI GENERAL MEDICAL PROBLEM - General Chief Complaint: Abdominal Pain Stated Complaint: RUQ abd pain Time Seen by Provider: 11/02/18 22:05 Source of Information: Reports: Patient History Limitations: Reports: No Limitations - History of Present Illness INITIAL COMMENTS - FREE TEXT/NARRATIVE: Patient is a 23-year-old who is seen with chief complaint of right lower quadrant pain patient states that his been sharp and crampy all day today also states that 6 days ago he was seen and diagnosed with a viral upper respiratory tract infection was sent home on supportive care for the last 3 or 4 days has been having right lower quadrant pain but today worse patient is about 8 out of 10 at this time Onset: Gradual Duration: Day(s): Location: Reports: Abdomen Quality: Reports: Sharp (Like a knife) Severity: Moderate Improves with: Reports: Other (Thank you food makes it better) Worsens with: Reports: None, Other (Drinking pop, eating makes it worse) Associated Symptoms: Reports: Cough, Nausea/Vomiting Right Upper Abdomen Pain Score (Numeric/FACES): 10 - Related Data Allergies Allergy/AdvReac Type Severity Reaction Status Date / Time cefazolin sodium [From [facility]] Allergy Rash Verified 11/02/18 22:00 codeine Allergy Hyperactivi Verified 11/02/18 22:00 ty Home Meds: Home Meds Prazosin [Minpress] 1 mg PO BEDTIME PRN 01/29/14 [History] Escitalopram [Lexapro] 20 mg PO DAILY 02/05/17 [History] LORazepam 0.5 mg PO ASDIRECTED PRN 02/05/17 [History] Pediatric Multivit Comb No.136 [Children Multivitamin] 1 tab PO DAILY 02/05/17 [ History] Cyclobenzaprine [Flexeril] 5 mg PO DAILY PRN 09/06/17 [History] Vit C/Stahl & Celery Ex/Grp E [Tart Stahl] 1 tab PO DAILY 09/06/17 [History] Levothyroxine [Synthroid] 50 mcg PO BEDTIME 07/28/18 [History] busPIRone [Buspar] 15 mg PO BID 08/08/18 [History] Naproxen [Naprosyn] 500 mg PO Q12HR PRN #1 tab 10/28/18 [Rx] Diphenoxylate HCl/Atropine [Lomotil] 1 tab PO Q6H PRN 3 Days #10 tablet [Rx] Past Medical History HEENT History: Reports: Allergic Rhinitis, Hard of Hearing, Impaired Vision, Otitis Media, Other (See Below). Denies: Cataract, Glaucoma, Macular Degeneration, Retinal Detachment Other HEENT History: Chronic recurrent bilateral otitis media with history of chronic left-sided TM perforation with sensitivity to loud noises and some left- sided hearing loss however no hearing aide therapy, left-sided mastoiditis on 29/06 with no surgery required Cardiovascular History: Reports: Syncope. Denies: Afib, Aneurysm, Arrhythmia, Blood Clots/VTE/DVT, CAD, Heart Murmur, High Cholesterol, Hypertension, [place] Other Cardiovascular History: Obesity with fatty liver. Recurrent pseudo-near syncopal episodes and/or pseudoseizures with previous evaluations in this emergency room on 07/28/18 and 02/04/18. Respiratory History: Reports: Bronchitis, Recurrent, Sleep Apnea, Other (See Below). 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 Moderate Obstructive sleep apnea with patient still waiting on his CPAP Gastrointestinal History: Reports: Cholelithiasis, Other (See Below). Denies: Bowel Obstruction, Celiac Disease, Chronic Constipation, Chronic Diarrhea, Gastritis, GERD, GI Bleed, Hepatitis, Inflammatory Bowel Disease, Irritable Bowel Syndrome, Jaundice, Pancreatitis, PUD Other Gastrointestinal History: Fatty liver by ultrasound, nonsymptomatic cholelithiasis/sludge Genitourinary History: Reports: None. Denies: Acute Renal Failure, BPH, Chronic Renal Insuffiency, Renal Calculus, STD, Urinary Incontinence, UTI, Recurrent Musculoskeletal History: Reports: Arthritis, Back Pain, Chronic, Fracture, Gout , Neck Pain, Chronic, Osteoarthritis, Other (See Below). Denies: Amputation, Osteoporosis, RA, SLE Other Musculoskeletal History: Right fifth metatarsal fracture on 01/11/10 Neurological History: Reports: Headaches, Chronic, Seizure, Other (See Below). Denies: Alzheimers Disease, Cerebral Aneurysms, Concussion, CVA, Head Trauma, Migraines, MS, Neuropathy, Peripheral, Parkinson's, TIA, Vertigo Other Neuro History: Chronic tension headaches, autism. Recurrent pseudoseizures as above. Psychiatric History: Reports: ADHD, Anxiety, Autism, Depression, Emotional Problems, Psych Hospitalization(s), Suicide Attempt, Suicidal Ideation, Other ( See Below). Denies: Abuse, Victim of, Addiction, PTSD Other Psychiatric History: Autism with mental deficits/mild retardation, prazosin therapy for nightmares seldom required; history of suicidal ideation and attempt on 09/29/11 with inpatient psychiatric care Endocrine/Metabolic History: Reports: Diabetes, Type II, Hypothyroidism, Obesity /BMI 30+, Other (See Below). Denies: Diabetes Mellitus, Type 3c, IDDM Hematologic History: Reports: Other (See Below). Denies: Anemia, Blood Transfusion(s), Iron Deficiency Other Hematologic History: Microcytosis with no anemia. Immunologic History: Reports: None. Denies: AIDS, HIV, SLE Oncologic (Cancer) History: Reports: None. Denies: Basal Cell Carcinoma, Hodgkin's Lymphoma, Leukemia, Lymphoma, Malignant Melanoma, Non-Hodgkin's Lymphoma, Squamous Cell Carcinoma Dermatologic History: Reports: None. Denies: Eczema, Psoriasis - Infectious Disease History Infectious Disease History: Reports: Chicken Pox, Influenza. Denies: C- Difficile, Measles, Meningitis, Mononucleosis, MRSA, Mumps, Rheumatic Fever, Rubella, Scarlet Fever, Shingles, TB, VRE - Past Surgical History Head Surgeries/Procedures: Reports: None HEENT Surgical History: Reports: Adenoidectomy, Eye Surgery, Myringotomy w Tube( s), Naso-Sinus Surgery, Oral Surgery, Tonsillectomy, Other (See Below). Denies : Cataract Surgery, Laser Surgery, LASIK Other HEENT Surgeries/Procedures: Chronic left-sided TM perforation with recurrent otitis media including borderline sepsis, bilateral PE tubes 3 in [place], tonsillectomy and adenoidectomy in [place], nasal/ sinus surgery with possible cauterization secondary to snoring in [place], strabismus correction in [place], [place] teeth extraction Cardiovascular Surgical History: Reports: None. Denies: Varicose Respiratory Surgical History: Reports: None. Denies: Thoracentesis GI Surgical History: Reports: None. Denies: Appendectomy, Cholecystectomy, Colonoscopy, EGD, Hernia, Abdominal, Hernia, Inguinal, Hernia Repair/Other Male Surgical History: Reports: Circumcision, Other (See Below). Denies: Vasectomy Other Male Surgeries/Procedures: Circumcision as an infant Endocrine Surgical History: Reports: None Neurological Surgical History: Reports: None. Denies: C-Spine, Discectomy, Laminectomy, Lumbar Spine, Sacral Spine, Spinal Fusion, Thoracic Spine, Vertebroplasty Musculoskeletal Surgical History: Reports: None. Denies: Arthroscopic Procedure , Carpal Tunnel, Ganglion Cyst, Joint Replacement, Knee Replacement, ORIF, Shoulder Surgery Oncologic Surgical History: Reports: None Dermatological Surgical History: Reports: None - Past Imaging History Past Imaging History: Reports: CAT Scan (CT of the chest on 08/31/18. CT of the head, cervical spine, and lumbar spine on 08/08/18. CT of the head on 02/04/18. CT of the maxillofacial region on 11/27/10, CTA of the brain on 08/06/11), HIDA Scan ( Negative HIDA scan on 09/23/18), Sleep Study (Positive sleep study on 08/24/18), Ultrasound (Abdominal ultrasound on 07/23/15, renal ultrasound on 11/29/10) Social & Family History - Family History Respiratory: Reports: Sleep Apnea, Other (See Below) Other Respiratory Family Hisory: Mother with sleep apnea - Caffeine Use Caffeine Use: Reports: Soda (3 sodas per day). Denies: Coffee, Energy Drinks, Tea Caffeine Use Comment: soda - Living Situation & Occupation Living situation: Reports: Single (No children), Alone (Part-time caregiver as below) Occupation: Employed (Part-time at [employer]. Autism and secondary mental disability with caregiver) ED ROS GENERAL - Review of Systems Review Of Systems: See Below Constitutional: Reports: No Symptoms HEENT: Reports: Glasses Respiratory: Reports: No Symptoms, Cough Cardiovascular: Reports: No Symptoms Endocrine: Reports: No Symptoms GI/Abdominal: Reports: Abdominal Pain (Right lower quadrant), Flatus, Nausea : Reports: No Symptoms Musculoskeletal: Reports: No Symptoms Skin: Reports: No Symptoms Neurological: Reports: No Symptoms Psychiatric: Reports: No Symptoms Hematologic/Lymphatic: Reports: No Symptoms Immunologic: Reports: No Symptoms ED EXAM, GI/ABD - Physical Exam Exam: See Below Exam Limited By: No Limitations General Appearance: Alert, WD/WN, No Apparent Distress Eyes: Bilateral: Normal Appearance, EOMI Ears: Normal External Exam, Normal Canal, Hearing Grossly Normal, Normal TMs Nose: Normal Inspection, Normal Mucosa, No Blood Throat/Mouth: Normal Inspection, Normal Lips, Normal Teeth, Normal Gums, Normal Oropharynx, Normal Voice, No Airway Compromise Head: Atraumatic, Normocephalic Neck: Normal Inspection, Supple, Non-Tender, Full Range of Motion Respiratory/Chest: No Respiratory Distress, Lungs Clear, Normal Breath Sounds, No Accessory Muscle Use, Chest Non-Tender Cardiovascular: Normal Peripheral Pulses, Regular Rate, Rhythm, No Edema, No Gallop, No JVD, No Murmur, No Rub GI/Abdominal Exam: Normal Bowel Sounds, Soft, Non-Tender, No Organomegaly, No Distention, No Abnormal Bruit, No Mass, Pelvis Stable, Other (Right lower quadrant tenderness) (Male) Exam: Deferred Rectal (Males) Exam: Deferred Back Exam: Normal Inspection, Full Range of Motion, NT Extremities: Normal Inspection, Normal Range of Motion, Non-Tender, Normal Capillary Refill, No Pedal Edema Neurological: Alert, Oriented, CN II-XII Intact, Normal Cognition, Normal Gait, Normal Reflexes, No Motor/Sensory Deficits Psychiatric: Normal Affect, Normal Mood Skin Exam: Warm, Dry, Intact, Normal Color, No Rash Lymphatic: No Adenopathy Course - Vital Signs Last Recorded V/S: Last Vital Signs Temp 98.5 F 11/02/18 22:00 Pulse 87 11/02/18 22:15 Resp 18 11/02/18 22:15 BP 130/71 11/02/18 22:15 Pulse Ox 95 11/02/18 22:15 - Orders/Labs/Meds Orders: Active Orders 24 hr Category Date Time Status Abdomen Pelvis w Cont [CT] Stat Exams 11/02/18 22:12 Taken Atropine/Diphenoxylate [Lomotil 0.025-2.5 MG] Med 11/03/18 01:03 Once 1 tab PO ONETIME ONE Medication Orders Diphenoxylate HCl/Atropine (Lomotil 0.025-2.5 Mg) 1 tab PO ONETIME ONE Stop: 11/03/18 01:04 Labs: Laboratory Tests 11/02/18 11/02/18 11/02/18 Range/Units 22:01 22:15 22:15 WBC 8.9 (4.0-10.2) K/uL RBC 5.44 H (4.33-5.41) M/uL Hgb 14.7 (13.1-16.8) g/dL Hct 43.5 (39.0-49.0) % MCV 80.0 L (84.0-98.0) fL MCH 27.0 L (28.2-33.3) pg MCHC 33.8 (31.7-36.0) g/dL RDW 15.3 H (11.2-14.1) % Plt Count 185 (150-350) K/uL Neut % (Auto) 63.7 (45.0-80.0) % Lymph % (Auto) 29.2 (10.0-50.0) % [place] % (Auto) 4.3 (2.0-14.0) % Eos % (Auto) 2.5 (0.0-5.0) % Baso % (Auto) 0.3 (0.0-2.0) % Neut # (Auto) 5.68 (1.40-7.00) K/uL Lymph # (Auto) 2.60 (0.50-3.50) K/uL [place] # (Auto) 0.38 (0.00-1.00) K/uL Eos # (Auto) 0.22 (0.00-0.50) K/uL Baso # (Auto) 0.03 (0.00-0.20) K/uL Sodium 143 (136-145) mmol/L Potassium 3.8 (3.5-5.1) mmol/L Chloride 103 (98-107) mmol/L Carbon Dioxide 27.2 (21.0-32.0) mmol/L BUN 13 (7-18) mg/dL Creatinine 1.10 (0.51-1.17) mg/dL Est Cr Clr Drug Dosing TNP Estimated GFR (MDRD) > 60 mL/min Glucose 164 H (74-106) mg/dL Calcium 9.1 (8.5-10.1) mg/dL Total Bilirubin 0.3 (0.2-1.0) mg/dL AST 41 H (15-37) U/L ALT 67 (12-78) U/L Alkaline Phosphatase 103 (46-116) IU/L Total Protein 7.0 (6.4-8.2) g/dL Albumin 3.7 (3.4-5.0) g/dL Specimen Type Urinvoid Urine Color Yellow Urine Appearance Clear Urine pH 5.5 (5.0-9.0) Ur Specific [place] >= 1.030 (1.005-1.030) Urine Protein Negative (NEGATIVE) mg/dL Urine Glucose (UA) Negative (NEGATIVE) mg/dL Urine Ketones Negative (NEGATIVE) mg/dL Urine Occult Blood Negative (NEGATIVE) Urine Nitrite Negative (NEGATIVE) Urine Bilirubin Negative (NEGATIVE) Urine Urobilinogen 0.2 (0.2-1.0) E.U./dL Ur Leukocyte Esterase Negative (NEGATIVE) Urine RBC 0-5 /HPF Urine WBC 0-5 /HPF Ur Epithelial Cells Few /LPF Urine Bacteria Rare (NONE TO FEW) /HPF Meds: Medications Generic Name Dose Route Start Last Admin Trade Name Freq PRN Reason Stop Dose Admin Diphenoxylate HCl/Atropine 1 tab 11/03/18 01:03 Lomotil 0.025-2.5 Mg PO 11/03/18 01:04 ONETIME ONE Discontinued Medications Generic Name Dose Route Start Last Admin Trade Name Freq PRN Reason Stop Dose Admin Iopamidol 50 ml 11/02/18 22:46 Isovue-300 (61%) IVPUSH 11/02/18 22:47 ONETIME ONE Iopamidol 50 ml 11/02/18 22:47 Isovue-300 (61%) IVPUSH 11/02/18 22:48 ONETIME ONE Iopamidol Confirm 11/02/18 22:50 Isovue-300 (61%) Administered 11/02/18 22:51 Dose 100 ml .ROUTE .STK-MED ONE Departure - Departure Time of Disposition: 01:04 Disposition: Home, Self-Care 01 Condition: Fair Clinical Impression: Abdominal pain - Discharge Information *PRESCRIPTION DRUG MONITORING PROGRAM REVIEWED*: No *COPY OF PRESCRIPTION DRUG MONITORING REPORT IN PATIENT ASHLEY: No Instructions: Abdominal Pain, Adult, [id number] Referrals: Alida Castellanos NP [Primary Care Provider] - Forms: ED Department Discharge Care Plan Goals: CT of the abdomen obtained at this time there is no signs of acute appendicitis therefore we will send him home with Lomotil 1 tablet now and one every 6 hours as needed for diarrhea pain has improved dramatically with rest patient will be sent home with mom follow-up with primary or return to the ER if worsen - My Orders Last 24 Hours: My Active Orders 11/02/18 22:12 Abdomen Pelvis w Cont [CT] Stat 11/03/18 01:03 Atropine/Diphenoxylate [Lomotil 0.025-2.5 MG] 1 tab PO ONETIME ONE - Assessment/Plan Last 24 Hours: My Active Orders 11/02/18 22:12 Abdomen Pelvis w Cont [CT] Stat 11/03/18 01:03 Atropine/Diphenoxylate [Lomotil 0.025-2.5 MG] 1 tab PO ONETIME ONE
[2018-11-02 22:37] LABS: CHLORIDE,CL 103 mmol/L (98-107); SODIUM,NA 143 mmol/L (136-145)
[2018-11-02] MEDS ORDERED: Iopamidol 612 MG/ML 50 ML SDV IVPUSH ONE ×2 (22:46→22:47)
[2018-11-02] MEDS ORDERED: Iopamidol 612 MG/ML 50 ML SDV ONE (22:50)
[2018-11-03] MEDS: Atropine/Diphenoxylate 0.025-2.5 MG Tab PO ONE (01:10)
== END 2018-11-03 01:25 | disposition home or self-care (01) ==
LOC: LL.ED 21:58
DX: R10.31 Right lower quadrant pain (principal); E11.9 Type 2 diabetes mellitus without complications; Z88.8 Allergy status to other drugs, medicaments and biological substances; Z88.5 Allergy status to narcotic agent; Z79.899 Other long term (current) drug therapy
CPT/HCPCS: 36000; 36415; 74177; 80053; 81001; 85025; 99284-25; A9270-GY; Q9967

== ENCOUNTER 2019-02-17 12:05 | Emergency (ER) | payer MEDICARE, MEDICAID ==
--- NOTE | 2019-02-17 12:33 | EDM.PDOC ---
ED HPI GENERAL MEDICAL PROBLEM - General Chief Complaint: ENT Problem Stated Complaint: ear pain Time Seen by Provider: 02/17/19 12:28 Source of Information: Reports: Patient History Limitations: Reports: No Limitations - History of Present Illness INITIAL COMMENTS - FREE TEXT/NARRATIVE: Patient is a 23-year-old who seen with chief complaint of bilateral ear pain left greater than right was seen in the clinic earlier and started on Augmentin patient complains of pain feels as membrane had ruptured Onset: Today Duration: Hour(s):, Getting Worse Location: Reports: Head Quality: Reports: Ache, Throbbing Severity: Moderate Improves with: Reports: None Worsens with: Reports: None Associated Symptoms: Reports: No Other Symptoms Treatments [employer]: Reports: Acetaminophen Left Ear Pain Score (Numeric/FACES): 10 - Related Data Allergies Allergy/AdvReac Type Severity Reaction Status Date / Time cefazolin sodium [From [facility]] Allergy Rash Verified 11/02/18 22:00 codeine Allergy Hyperactivi Verified 11/02/18 22:00 ty Home Meds: Home Meds Prazosin [Minpress] 1 mg PO BEDTIME PRN 01/29/14 [History] Escitalopram [Lexapro] 20 mg PO DAILY 02/05/17 [History] LORazepam 0.5 mg PO ASDIRECTED PRN 02/05/17 [History] Pediatric Multivit Comb No.136 [Children Multivitamin] 1 tab PO DAILY 02/05/17 [ History] Cyclobenzaprine [Flexeril] 5 mg PO DAILY PRN 09/06/17 [History] Vit C/Stahl & Celery Ex/Grp E [Tart Stahl] 1 tab PO DAILY 09/06/17 [History] Levothyroxine [Synthroid] 50 mcg PO BEDTIME 07/28/18 [History] busPIRone [Buspar] 15 mg PO BID 08/08/18 [History] Naproxen [Naprosyn] 500 mg PO Q12HR PRN #1 tab 10/28/18 [Rx] Diphenoxylate HCl/Atropine [Lomotil] 1 tab PO Q6H PRN 3 Days #10 tablet [Rx] Amoxicillin/Potassium Clav [Amox-Clav 875-125 mg Tablet] 1 tab PO BID 02/17/19 [ History] Ibuprofen 800 mg PO Q6HR PRN 02/17/19 [History] Past Medical History HEENT History: Reports: Allergic Rhinitis, Hard of Hearing, Impaired Vision, Otitis Media, Other (See Below). Denies: Cataract, Glaucoma, Macular Degeneration, Retinal Detachment Other HEENT History: Chronic recurrent bilateral otitis media with history of chronic left-sided TM perforation with sensitivity to loud noises and some left- sided hearing loss however no hearing aide therapy, left-sided mastoiditis on 29/06 with no surgery required Cardiovascular History: Reports: Syncope. Denies: Afib, Aneurysm, Arrhythmia, Blood Clots/VTE/DVT, CAD, Heart Murmur, High Cholesterol, Hypertension, [place] Other Cardiovascular History: Obesity with fatty liver. Recurrent pseudo-near syncopal episodes and/or pseudoseizures with previous evaluations in this emergency room on 07/28/18 and 02/04/18. Respiratory History: Reports: Bronchitis, Recurrent, Sleep Apnea, Other (See Below). 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 Moderate Obstructive sleep apnea with patient still waiting on his CPAP Gastrointestinal History: Reports: Cholelithiasis, Other (See Below). Denies: Bowel Obstruction, Celiac Disease, Chronic Constipation, Chronic Diarrhea, Gastritis, GERD, GI Bleed, Hepatitis, Inflammatory Bowel Disease, Irritable Bowel Syndrome, Jaundice, Pancreatitis, PUD Other Gastrointestinal History: Fatty liver by ultrasound, nonsymptomatic cholelithiasis/sludge Genitourinary History: Reports: None. Denies: Acute Renal Failure, BPH, Chronic Renal Insuffiency, Renal Calculus, STD, Urinary Incontinence, UTI, Recurrent Musculoskeletal History: Reports: Arthritis, Back Pain, Chronic, Fracture, Gout , Neck Pain, Chronic, Osteoarthritis, Other (See Below). Denies: Amputation, Osteoporosis, RA, SLE Other Musculoskeletal History: Right fifth metatarsal fracture on 01/11/10 Neurological History: Reports: Headaches, Chronic, Seizure, Other (See Below). Denies: Alzheimers Disease, Cerebral Aneurysms, Concussion, CVA, Head Trauma, Migraines, MS, Neuropathy, Peripheral, Parkinson's, TIA, Vertigo Other Neuro History: Chronic tension headaches, autism. Recurrent pseudoseizures as above. Psychiatric History: Reports: ADHD, Anxiety, Autism, Depression, Emotional Problems, Psych Hospitalization(s), Suicide Attempt, Suicidal Ideation, Other ( See Below). Denies: Abuse, Victim of, Addiction, PTSD Other Psychiatric History: Autism with mental deficits/mild retardation, prazosin therapy for nightmares seldom required; history of suicidal ideation and attempt on 09/29/11 with inpatient psychiatric care Endocrine/Metabolic History: Reports: Diabetes, Type II, Hypothyroidism, Obesity /BMI 30+, Other (See Below). Denies: Diabetes Mellitus, Type 3c, IDDM Hematologic History: Reports: Other (See Below). Denies: Anemia, Blood Transfusion(s), Iron Deficiency Other Hematologic History: Microcytosis with no anemia. Immunologic History: Reports: None. Denies: AIDS, HIV, SLE Oncologic (Cancer) History: Reports: None. Denies: Basal Cell Carcinoma, Hodgkin's Lymphoma, Leukemia, Lymphoma, Malignant Melanoma, Non-Hodgkin's Lymphoma, Squamous Cell Carcinoma Dermatologic History: Reports: None. Denies: Eczema, Psoriasis - Infectious Disease History Infectious Disease History: Reports: Chicken Pox, Influenza. Denies: C- Difficile, Measles, Meningitis, Mononucleosis, MRSA, Mumps, Rheumatic Fever, Rubella, Scarlet Fever, Shingles, TB, VRE - Past Surgical History Head Surgeries/Procedures: Reports: None HEENT Surgical History: Reports: Adenoidectomy, Eye Surgery, Myringotomy w Tube( s), Naso-Sinus Surgery, Oral Surgery, Tonsillectomy, Other (See Below). Denies : Cataract Surgery, Laser Surgery, LASIK Other HEENT Surgeries/Procedures: Chronic left-sided TM perforation with recurrent otitis media including borderline sepsis, bilateral PE tubes 3 in dowel [place], tonsillectomy and adenoidectomy in [place], nasal/ sinus surgery with possible cauterization secondary to snoring in [place], strabismus correction in dowel [place], [place] teeth extraction Cardiovascular Surgical History: Reports: None. Denies: Varicose Respiratory Surgical History: Reports: None. Denies: Thoracentesis GI Surgical History: Reports: None. Denies: Appendectomy, Cholecystectomy, Colonoscopy, EGD, Hernia, Abdominal, Hernia, Inguinal, Hernia Repair/Other Male Surgical History: Reports: Circumcision, Other (See Below). Denies: Vasectomy Other Male Surgeries/Procedures: Circumcision as an infant Endocrine Surgical History: Reports: None Neurological Surgical History: Reports: None. Denies: C-Spine, Discectomy, Laminectomy, Lumbar Spine, Sacral Spine, Spinal Fusion, Thoracic Spine, Vertebroplasty Musculoskeletal Surgical History: Reports: None. Denies: Arthroscopic Procedure , Carpal Tunnel, Ganglion Cyst, Joint Replacement, Knee Replacement, ORIF, Shoulder Surgery Oncologic Surgical History: Reports: None Dermatological Surgical History: Reports: None - Past Imaging History Past Imaging History: Reports: CAT Scan (CT of the chest on 08/31/18. CT of the head, cervical spine, and lumbar spine on 08/08/18. CT of the head on 02/04/18. CT of the maxillofacial region on 11/27/10, CTA of the brain on 08/06/11), HIDA Scan ( Negative HIDA scan on 09/23/18), Sleep Study (Positive sleep study on 08/24/18), Ultrasound (Abdominal ultrasound on 07/23/15, renal ultrasound on 11/29/10) Social & Family History - Family History Respiratory: Reports: Sleep Apnea, Other (See Below) Other Respiratory Family Hisory: Mother with sleep apnea - Caffeine Use Caffeine Use: Reports: Soda (3 sodas per day). Denies: Coffee, Energy Drinks, Tea Caffeine Use Comment: soda - Living Situation & Occupation Living situation: Reports: Single (No children), Alone (Part-time caregiver as below) Occupation: Employed (Part-time at [employer]. Autism and secondary mental disability with caregiver) ED ROS ENT - Review of Systems Review Of Systems: See Below Constitutional: Reports: Other (Obese) HEENT: Reports: Ear Pain Respiratory: Reports: No Symptoms Cardiovascular: Reports: No Symptoms Endocrine: Reports: No Symptoms GI/Abdominal: Reports: No Symptoms : Reports: No Symptoms Musculoskeletal: Reports: No Symptoms Skin: Reports: No Symptoms Neurological: Reports: No Symptoms Psychiatric: Reports: Anxiety Hematologic/Lymphatic: Reports: No Symptoms Immunologic: Reports: No Symptoms ED EXAM, ENT - Physical Exam Exam: See Below Exam Limited By: No Limitations General Appearance: Anxious, Mild Distress Ears: Auricular Tenderness, Canal Swelling, TM Bulging (Left greater than right) Nose: Normal Inspection, Normal Mucousa, No Blood Mouth/Throat: Normal Inspection, Normal Gums, Normal Lips, Normal Oropharynx, Normal Teeth Head: Atraumatic, Normocephalic Neck: Normal Inspection, Supple, Non-Tender, Full Range of Motion Respiratory/Chest: No Respiratory Distress, Lungs Clear, Normal Breath Sounds, No Accessory Muscle Use, Chest Non-Tender Cardiovascular: Normal Peripheral Pulses, Regular Rate, Rhythm, No Edema, No Gallop, No JVD, No Murmur, No Rub GI/Abdominal: Normal Bowel Sounds, Soft, Non-Tender, No Organomegaly, No Distention, No Abnormal Bruit, No Mass (Male) Exam: Deferred Rectal (Males) Exam: Deferred Back: Normal Inspection, Full Range of Motion Extremities: Normal Inspection, Normal Range of Motion, Non-Tender, No Pedal Edema, Normal Capillary Refill Departure - Departure Time of Disposition: 12:32 Disposition: Home, Self-Care 01 Condition: Fair Clinical Impression: Otitis media - Discharge Information *PRESCRIPTION DRUG MONITORING PROGRAM REVIEWED*: No *COPY OF PRESCRIPTION DRUG MONITORING REPORT IN PATIENT ASHLEY: No Referrals: Alida Castellanos NP [Primary Care Provider] - Care Plan Goals: Patient is to continue his antibiotics the same he will be started on Claritin- D to start tomorrow he is to continue taking Motrin 600 every 6 hours for pain follow-up with his primary as needed
[2019-02-17 12:35] VITALS: BP 147/86; PULSE 96
== END 2019-02-17 12:40 | disposition home or self-care (01) ==
LOC: LL.ED 12:05
DX: H66.93 Otitis media, unspecified, bilateral (principal); E66.9 Obesity, unspecified; E11.9 Type 2 diabetes mellitus without complications; Z88.5 Allergy status to narcotic agent; Z88.8 Allergy status to other drugs, medicaments and biological substances; Z79.899 Other long term (current) drug therapy; Z68.42 Body mass index [BMI] 45.0-49.9, adult
CPT/HCPCS: 99282; 99283

== ENCOUNTER 2019-04-21 01:44 | Emergency (ER) | payer MEDICARE, MEDICAID ==
[2019-04-21 01:50] VITALS: BP 146/91; PULSE 91
--- NOTE | 2019-04-21 02:20 | EDM.PDOC ---
ED HPI GENERAL MEDICAL PROBLEM - General Chief Complaint: ENT Problem Stated Complaint: ear pain Time Seen by Provider: 04/21/19 02:16 Source of Information: Reports: Patient History Limitations: Reports: No Limitations - History of Present Illness INITIAL COMMENTS - FREE TEXT/NARRATIVE: Patient is a 24-year-old who seen with chief complaint of right ear pain started earlier in the night it woke him up was brought in by mom for evaluation Onset: Today, Sudden Duration: Hour(s):, Getting Worse Location: Reports: Head, Face Quality: Reports: Ache, Throbbing Severity: Moderate Improves with: Reports: None, Immobilization, Other (Below his right side) Worsens with: Reports: None Context: Reports: Other (Infection) Associated Symptoms: Reports: No Other Symptoms Right Ear Pain Score (Numeric/FACES): 10 - Related Data Allergies Allergy/AdvReac Type Severity Reaction Status Date / Time cefazolin sodium [From [facility]] Allergy Rash Verified 04/21/19 01:50 codeine Allergy Hyperactivi Verified 04/21/19 01:50 ty Home Meds: Home Meds Prazosin [Minpress] 1 mg PO BEDTIME PRN 01/29/14 [History] Escitalopram [Lexapro] 20 mg PO DAILY 02/05/17 [History] LORazepam 0.5 mg PO ASDIRECTED PRN 02/05/17 [History] Pediatric Multivit Comb No.136 [Children Multivitamin] 1 tab PO DAILY 02/05/17 [ History] Cyclobenzaprine [Flexeril] 5 mg PO DAILY PRN 09/06/17 [History] Vit C/Stahl & Celery Ex/Grp E [Tart Stahl] 1 tab PO DAILY 09/06/17 [History] Levothyroxine [Synthroid] 50 mcg PO BEDTIME 07/28/18 [History] busPIRone [Buspar] 15 mg PO BID 08/08/18 [History] Naproxen [Naprosyn] 500 mg PO Q12HR PRN #1 tab 10/28/18 [Rx] Diphenoxylate HCl/Atropine [Lomotil] 1 tab PO Q6H PRN 3 Days #10 tablet [Rx] Amoxicillin/Potassium Clav [Amox-Clav 875-125 mg Tablet] 1 tab PO BID 02/17/19 [ History] Ibuprofen 800 mg PO Q6HR PRN 02/17/19 [History] Amoxicillin/Potassium Clav [Augmentin 875-125 Tablet] 1 each PO BID 10 Days #19 tablet 04/21/19 [Rx] Past Medical History HEENT History: Reports: Allergic Rhinitis, Hard of Hearing, Impaired Vision, Otitis Media, Other (See Below) Other HEENT History: Chronic recurrent bilateral otitis media with history of chronic left-sided TM perforation with sensitivity to loud noises and some left- sided hearing loss however no hearing aide therapy, left-sided mastoiditis on 29/06 with no surgery required Cardiovascular History: Reports: Syncope Other Cardiovascular History: Obesity with fatty liver. Recurrent pseudo-near syncopal episodes and/or pseudoseizures with previous evaluations in this emergency room on 07/28/18 and 02/04/18. Respiratory History: Reports: Bronchitis, Recurrent, Sleep Apnea, Other (See Below) Other Respiratory History: Borderline pulmonary obstructive disease by chest x- ray with no current medical therapy. Moderate Obstructive sleep apnea with patient still waiting on his CPAP Gastrointestinal History: Reports: Cholelithiasis, Other (See Below) Other Gastrointestinal History: Fatty liver by ultrasound, nonsymptomatic cholelithiasis/sludge Genitourinary History: Reports: None Musculoskeletal History: Reports: Arthritis, Back Pain, Chronic, Fracture, Gout , Neck Pain, Chronic, Osteoarthritis, Other (See Below) Other Musculoskeletal History: Right fifth metatarsal fracture on 01/11/10 Neurological History: Reports: Headaches, Chronic, Seizure, Other (See Below) Other Neuro History: Chronic tension headaches, autism. Recurrent pseudoseizures as above. Psychiatric History: Reports: ADHD, Anxiety, Autism, Depression, Emotional Problems, Psych Hospitalization(s), Suicide Attempt, Suicidal Ideation, Other ( See Below) Other Psychiatric History: Autism with mental deficits/mild retardation, prazosin therapy for nightmares seldom required; history of suicidal ideation and attempt on 09/29/11 with inpatient psychiatric care Endocrine/Metabolic History: Reports: Diabetes, Type II, Hypothyroidism, Obesity /BMI 30+, Other (See Below) Hematologic History: Reports: Other (See Below) Other Hematologic History: Microcytosis with no anemia. 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 PE tubes 3 in estate attorney, tonsillectomy and adenoidectomy in estate attorney, nasal/ sinus surgery with possible cauterization secondary to snoring in estate attorney, strabismus correction in estate attorney, [place] teeth extraction Cardiovascular Surgical History: Reports: None Respiratory Surgical History: Reports: None GI Surgical History: Reports: None Male Surgical History: Reports: Circumcision, Other (See Below) Other Male Surgeries/Procedures: Circumcision as an infant Endocrine Surgical History: Reports: None Neurological Surgical History: Reports: None Musculoskeletal Surgical History: Reports: None Oncologic Surgical History: Reports: None Dermatological Surgical History: Reports: None - Past Imaging History Past Imaging History: Reports: CAT Scan (CT of the chest on 08/31/18. CT of the head, cervical spine, and lumbar spine on 08/08/18. CT of the head on 02/04/18. CT of the maxillofacial region on 11/27/10, CTA of the brain on 08/06/11), HIDA Scan ( Negative HIDA scan on 09/23/18), Sleep Study (Positive sleep study on 08/24/18), Ultrasound (Abdominal ultrasound on 07/23/15, renal ultrasound on 11/29/10) Social & Family History - Family History Respiratory: Reports: Sleep Apnea, Other (See Below) Other Respiratory Family Hisory: Mother with sleep apnea - Tobacco Use Smoking Status *Q: Current Every Day Smoker Years of Tobacco use: 7 Packs/Tins Daily: 0.5 - Caffeine Use Caffeine Use: Reports: Soda Caffeine Use Comment: soda - Living Situation & Occupation Living situation: Reports: Single (No children), Alone (Part-time caregiver as below) Occupation: Employed (Part-time at [email or web address]. Autism and secondary mental disability with caregiver) ED ROS ENT - Review of Systems Review Of Systems: See Below Constitutional: Reports: No Symptoms HEENT: Reports: Ear Pain Respiratory: Reports: Wheezing Cardiovascular: Reports: No Symptoms Endocrine: Reports: No Symptoms GI/Abdominal: Reports: No Symptoms : Reports: No Symptoms Musculoskeletal: Reports: No Symptoms Skin: Reports: No Symptoms Neurological: Reports: No Symptoms Psychiatric: Reports: Depression Hematologic/Lymphatic: Reports: No Symptoms Immunologic: Reports: No Symptoms ED EXAM, ENT - Physical Exam Exam: See Below Exam Limited By: No Limitations General Appearance: Alert, WD/WN, No Apparent Distress Ears: TM Bulging, TM Erythema Nose: Normal Inspection, Normal Mucousa, No Blood Mouth/Throat: Normal Inspection, Normal Gums, Normal Lips, Normal Oropharynx, Normal Teeth Head: Atraumatic, Normocephalic Neck: Normal Inspection, Supple, Non-Tender, Full Range of Motion Respiratory/Chest: No Respiratory Distress, Lungs Clear, Normal Breath Sounds, No Accessory Muscle Use, Chest Non-Tender Cardiovascular: Normal Peripheral Pulses, Regular Rate, Rhythm, No Edema, No Gallop, No JVD, No Murmur, No Rub GI/Abdominal: Normal Bowel Sounds, Soft, Non-Tender, No Organomegaly, No Distention, No Abnormal Bruit, No Mass (Male) Exam: Deferred Rectal (Males) Exam: Deferred Back: Normal Inspection, Full Range of Motion Extremities: Normal Inspection, Normal Range of Motion, Non-Tender, No Pedal Edema, Normal Capillary Refill Neurological: Alert, Oriented, CN II-XII Intact, Normal Cognition, Normal Gait, Normal Reflexes, No Motor/Sensory Deficits Psychiatric: Normal Affect, Normal Mood Skin: Warm, Dry, Intact, Normal Color, No Rash Course - Vital Signs Last Recorded V/S: Last Vital Signs Temp 98.3 F 04/21/19 01:48 Pulse 91 04/21/19 01:48 Resp 20 04/21/19 01:48 BP 146/91 H 04/21/19 01:48 Pulse Ox 96 04/21/19 01:48 - Orders/Labs/Meds Orders: Active Orders 24 hr Category Date Time Status Amoxicillin/Clavulanate K [Augmentin 875 MG/125 MG] Med 04/21/19 02:13 Once 1 tab PO ONETIME ONE Departure - Departure Time of Disposition: 02:21 Disposition: Home, Self-Care 01 Condition: Fair Clinical Impression: Otitis media Qualifiers: Otitis media type: other nonsuppurative Chronicity: acute Laterality: right Recurrence: non-recurrent Qualified Code(s): H65.191 - Other acute nonsuppurative otitis media, right ear - Discharge Information *PRESCRIPTION DRUG MONITORING PROGRAM REVIEWED*: No *COPY OF PRESCRIPTION DRUG MONITORING REPORT IN PATIENT ASHLEY: No Referrals: Alida Castellanos NP [Primary Care Provider] - Care Plan Goals: Patient seen evaluated and diagnosed with otitis media at this time we'll start him on Augmentin 875 twice a day for 10 days 1 dose was given now patient will need to follow-up with primary care if not better he is to take Tylenol or Motrin for pain - My Orders Last 24 Hours: My Active Orders 04/21/19 02:13 Amoxicillin/Clavulanate K [Augmentin 875 MG/125 MG] 1 tab PO ONETIME ONE - Assessment/Plan Last 24 Hours: My Active Orders 04/21/19 02:13 Amoxicillin/Clavulanate K [Augmentin 875 MG/125 MG] 1 tab PO ONETIME ONE
[2019-04-21] MEDS: Amoxicillin/Clavulanate K 875-125 MG Tab PO ONE (02:29)
== END 2019-04-21 02:35 | disposition home or self-care (01) ==
LOC: LL.ED 01:44
DX: H65.191 Other acute nonsuppurative otitis media, right ear (principal); F17.210 Nicotine dependence, cigarettes, uncomplicated; E11.9 Type 2 diabetes mellitus without complications; E03.9 Hypothyroidism, unspecified; F41.9 Anxiety disorder, unspecified; F32.9 Major depressive disorder, single episode, unspecified; F84.0 Autistic disorder; E66.9 Obesity, unspecified; Z68.42 Body mass index [BMI] 45.0-49.9, adult; Z79.899 Other long term (current) drug therapy; Z88.5 Allergy status to narcotic agent; Z88.1 Allergy status to other antibiotic agents
CPT/HCPCS: 99282; A9270

== ENCOUNTER 2019-05-04 04:34 | Emergency (ER) | payer MEDICARE, MEDICAID ==
[2019-05-04] MEDS ORDERED: Aspirin 81 MG Tab.Chew ONE (05:04)
[2019-05-04] MEDS ORDERED: Aspirin 81 MG Tab.Chew PO ONE (05:06)
--- NOTE | 2019-05-04 05:10 | EDM.PDOC ---
ED HPI GENERAL MEDICAL PROBLEM - General Chief Complaint: Chest Pain Stated Complaint: CHEST PAIN Time Seen by Provider: 05/04/19 04:40 Source of Information: Reports: Patient History Limitations: Reports: Physical Impairment (Obese), Other (Heavy smoker) - History of Present Illness INITIAL COMMENTS - FREE TEXT/NARRATIVE: Patient is a 24-year-old male who is seen with chief complaint of chest pain patient is a heavy smoker who states that when he woke up at 4:00 he had moderate chest pain or radiation which has continued at this time patient was given EKG which is normal 4 baby aspirins and a sublingual nitroglycerin at this time. Patient is being worked up for cardiac event. 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 - Related Data Allergies Allergy/AdvReac Type Severity Reaction Status Date / Time cefazolin sodium [From [facility]] Allergy Rash Verified 04/21/19 01:50 codeine Allergy Hyperactivi Verified 04/21/19 01:50 ty Home Meds: Home Meds Prazosin [Minpress] 1 mg PO BEDTIME PRN 01/29/14 [History] Escitalopram [Lexapro] 20 mg PO DAILY 02/05/17 [History] LORazepam 0.5 mg PO ASDIRECTED PRN 02/05/17 [History] Pediatric Multivit Comb No.136 [Children Multivitamin] 1 tab PO DAILY 02/05/17 [ History] Cyclobenzaprine [Flexeril] 5 mg PO DAILY PRN 09/06/17 [History] Vit C/Stahl & Celery Ex/Grp E [Tart Stahl] 1 tab PO DAILY 09/06/17 [History] Levothyroxine [Synthroid] 50 mcg PO BEDTIME 07/28/18 [History] busPIRone [Buspar] 15 mg PO BID 08/08/18 [History] Naproxen [Naprosyn] 500 mg PO Q12HR PRN #1 tab 10/28/18 [Rx] Diphenoxylate HCl/Atropine [Lomotil] 1 tab PO Q6H PRN 3 Days #10 tablet [Rx] Amoxicillin/Potassium Clav [Amox-Clav 875-125 mg Tablet] 1 tab PO BID 02/17/19 [ History] Ibuprofen 800 mg PO Q6HR PRN 02/17/19 [History] Amoxicillin/Potassium Clav [Augmentin 875-125 Tablet] 1 each PO BID 10 Days #19 tablet 04/21/19 [Rx] Past Medical History HEENT History: Reports: Allergic Rhinitis, Hard of Hearing, Impaired Vision, Otitis Media, Other (See Below) Other HEENT History: Chronic recurrent bilateral otitis media with history of chronic left-sided TM perforation with sensitivity to loud noises and some left- sided hearing loss however no hearing aide therapy, left-sided mastoiditis on 29/06 with no surgery required Cardiovascular History: Reports: Syncope Other Cardiovascular History: Obesity with fatty liver. Recurrent pseudo-near syncopal episodes and/or pseudoseizures with previous evaluations in this emergency room on 07/28/18 and 02/04/18. Respiratory History: Reports: Bronchitis, Recurrent, Sleep Apnea, Other (See Below) Other Respiratory History: Borderline pulmonary obstructive disease by chest x- ray with no current medical therapy. Moderate Obstructive sleep apnea with patient still waiting on his CPAP Gastrointestinal History: Reports: Cholelithiasis, Other (See Below) Other Gastrointestinal History: Fatty liver by ultrasound, nonsymptomatic cholelithiasis/sludge Genitourinary History: Reports: None Musculoskeletal History: Reports: Arthritis, Back Pain, Chronic, Fracture, Gout , Neck Pain, Chronic, Osteoarthritis, Other (See Below) Other Musculoskeletal History: Right fifth metatarsal fracture on 01/11/10 Neurological History: Reports: Headaches, Chronic, Seizure, Other (See Below) Other Neuro History: Chronic tension headaches, autism. Recurrent pseudoseizures as above. Psychiatric History: Reports: ADHD, Anxiety, Autism, Depression, Emotional Problems, Psych Hospitalization(s), Suicide Attempt, Suicidal Ideation, Other ( See Below) Other Psychiatric History: Autism with mental deficits/mild retardation, prazosin therapy for nightmares seldom required; history of suicidal ideation and attempt on 09/29/11 with inpatient psychiatric care Endocrine/Metabolic History: Reports: Diabetes, Type II, Hypothyroidism, Obesity /BMI 30+, Other (See Below) Hematologic History: Reports: Other (See Below) Other Hematologic History: Microcytosis with no anemia. 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 PE tubes 3 in bail bondsman, tonsillectomy and adenoidectomy in bail bondsman, nasal/ sinus surgery with possible cauterization secondary to snoring in bail bondsman, strabismus correction in bail bondsman, [place] teeth extraction Cardiovascular Surgical History: Reports: None Respiratory Surgical History: Reports: None GI Surgical History: Reports: None Male Surgical History: Reports: Circumcision, Other (See Below) Other Male Surgeries/Procedures: Circumcision as an infant Endocrine Surgical History: Reports: None Neurological Surgical History: Reports: None Musculoskeletal Surgical History: Reports: None Oncologic Surgical History: Reports: None Dermatological Surgical History: Reports: None - Past Imaging History Past Imaging History: Reports: CAT Scan (CT of the chest on 08/31/18. CT of the head, cervical spine, and lumbar spine on 08/08/18. CT of the head on 02/04/18. CT of the maxillofacial region on 11/27/10, CTA of the brain on 08/06/11), HIDA Scan ( Negative HIDA scan on 09/23/18), Sleep Study (Positive sleep study on 08/24/18), Ultrasound (Abdominal ultrasound on 07/23/15, renal ultrasound on 11/29/10) Social & Family History - Family History Respiratory: Reports: Sleep Apnea, Other (See Below) Other Respiratory Family Hisory: Mother with sleep apnea - Tobacco Use Smoking Status *Q: Current Every Day Smoker Years of Tobacco use: 5 Packs/Tins Daily: 1 - Caffeine Use Caffeine Use: Reports: Soda Caffeine Use Comment: soda - Living Situation & Occupation Living situation: Reports: Single (No children), Alone (Part-time caregiver as below) Occupation: Employed (Part-time at [employer]. Autism and secondary mental disability with caregiver) ED ROS GENERAL - Review of Systems Review Of Systems: See Below ED EXAM, GENERAL - Physical Exam Exam: See Below Course - Vital Signs Last Recorded V/S: Last Vital Signs Temp 98.2 F 05/04/19 04:35 Pulse 80 05/04/19 04:57 Resp 20 05/04/19 04:57 BP 124/90 05/04/19 04:57 Pulse Ox 98 05/04/19 04:57 - Orders/Labs/Meds Orders: Active Orders 24 hr Category Date Time Status CK W CKMB [CHEM] Stat Lab 05/04/19 05:00 Received COMPREHENSIVE METABOLIC PN,CMP [CHEM] Stat Lab 05/04/19 05:00 Received MAGNESIUM [CHEM] Stat Lab 05/04/19 05:00 Received PRO B-TYPE NATRIUR PEPT,BNPPRO [CHEM] Stat Lab 05/04/19 05:00 Received TROPONIN I [CHEM] Stat Lab 05/04/19 05:00 Received TSH ULTRASENSITIVE [CHEM] Stat Lab 05/04/19 05:00 Received Departure - Departure Time of Disposition: 05:47 Disposition: Home, Self-Care 01 Condition: Fair Clinical Impression: Non-cardiac chest pain Instructions: Chest Wall Pain Care Plan Goals: Patient at this time revealed troponin to be 0.000 EKG normal sinus rhythm with negative troponins and no further chest pain patient will be sent home to follow -up with primary.
[2019-05-04 05:31] LABS: CHLORIDE,CL 103 mmol/L (98-107); SODIUM,NA 140 mmol/L (136-145)
[2019-05-04 06:08] VITALS: BP 123/71; PULSE 74
== END 2019-05-04 06:00 | disposition home or self-care (01) ==
LOC: LL.ED 04:34
DX: R07.89 Other chest pain (principal); E66.9 Obesity, unspecified; E11.9 Type 2 diabetes mellitus without complications; F41.9 Anxiety disorder, unspecified; F84.0 Autistic disorder; E03.9 Hypothyroidism, unspecified; F17.200 Nicotine dependence, unspecified, uncomplicated; Z88.1 Allergy status to other antibiotic agents; Z79.890 Hormone replacement therapy; Z79.899 Other long term (current) drug therapy; Z68.42 Body mass index [BMI] 45.0-49.9, adult
CPT/HCPCS: 36415; 71045; 80053; 82550; 82553; 83605; 83735; 83880; 84443; 84484; 85025; 85379; 85610; 85730; 93005; 99285; A9270

== ENCOUNTER 2019-05-10 21:34 | Emergency (ER) | payer MEDICARE, MEDICAID ==
[2019-05-10 22:47] LABS: CHLORIDE,CL 102 mmol/L (98-107); SODIUM,NA 142 mmol/L (136-145)
[2019-05-10] MEDS ORDERED: Sodium Chloride 0.9% 10 ML Syringe FLUSH PRN (22:51)
[2019-05-10] MEDS: Meclizine 25 MG Tab PO ONE (23:01)
--- NOTE | 2019-05-10 23:09 | EDM.PDOC ---
ED HPI GENERAL MEDICAL PROBLEM - General Chief Complaint: General Stated Complaint: headache, blurry vision Time Seen by Provider: 05/10/19 22:14 Source of Information: Reports: Patient, Family History Limitations: Reports: Altered Mental Status (baseline cognitive impairment present/history of attention seeking behavior affects obtaining reliable information) - History of Present Illness INITIAL COMMENTS - FREE TEXT/NARRATIVE: Patient brought here by his mother for evaluation of headache/neck pain. Has history of migraine headaches and has photophobia when these are present and says that he cannot look up or down with his eyes. Had migraine headache yesterday. Does not describe having accompanying aura. Has been complaining of neck pain for several weeks. Treated by chiropractor several times with only temporary improvement. Denies any recent trauma/activity change that may have triggered the pain. Did present to ER on 08/08/18 after falling on ice and had neck and low back pain complaint at that time. Patient does not indicate that the neck pain has been an ongoing issue since that incident. Brought to ER today because headache and neck ache worsening. Now also has some dizziness with head movement. Was complaining to his mother that all four limbs were numb this evening. No fevers. No obvious infection-type symptoms. HEENT negative for ear pain/drainage, runny nose, sore throat, swollen glands. Resp negative for SOB/cough/phlegm/chest pain No back pain/flank discomfort. Eating and drinking well. No weight changes. Denies nausea/emesis/bowel changes Denies UTI symptoms/hematuria No rashes No mental status changes. Had been complaining of glove/stocking like numbness however quickly denied having numbness after nursing staff checked sensation. Patient quickly responded "ow" and withdrew upper and lower limbs quickly when tested. When asked again about any numbness/tingling, patient denied having symptoms. Patient is well known to the ER. Has autism/behavioral issues. Multiple presentations for pain complaints/pseudoseizures that are felt to be attention seeking. Multiple health problems, including diabetes, sleep apnea, fatty liver, hypothyroidism, tobacco abuse, morbid obesity. Noted to have small lung nodules on August scan (recommended to have follow up scan in one year). Sludge in gallbladder. Osteoarthritis. Patient noncompliant with recommendations. 6 ER visits in 2019. 8 in 2018. Headache Pain Score (Numeric/FACES): 10 - Related Data Allergies Allergy/AdvReac Type Severity Reaction Status Date / Time cefazolin sodium [From Anc] Allergy Rash Verified 05/10/19 22:35 codeine Allergy Hyperactivi Verified 05/10/19 22:35 ty Home Meds: Home Meds Prazosin [Minpress] 1 mg PO BEDTIME PRN 01/29/14 [History] Escitalopram [Lexapro] 20 mg PO DAILY 02/05/17 [History] LORazepam 0.5 mg PO ASDIRECTED PRN 02/05/17 [History] Pediatric Multivit Comb No.136 [Children Multivitamin] 1 tab PO DAILY 02/05/17 [ History] Cyclobenzaprine [Flexeril] 5 mg PO DAILY PRN 09/06/17 [History] Vit C/Stahl & Celery Ex/Grp E [Tart Stahl] 1 tab PO DAILY 09/06/17 [History] Levothyroxine [Synthroid] 50 mcg PO BEDTIME 07/28/18 [History] busPIRone [Buspar] 15 mg PO BID 08/08/18 [History] Naproxen [Naprosyn] 500 mg PO Q12HR PRN #1 tab 10/28/18 [Rx] Diphenoxylate HCl/Atropine [Lomotil] 1 tab PO Q6H PRN 3 Days #10 tablet [Rx] Amoxicillin/Potassium Clav [Amox-Clav 875-125 mg Tablet] 1 tab PO BID 02/17/19 [ History] Ibuprofen 800 mg PO Q6HR PRN 02/17/19 [History] Amoxicillin/Potassium Clav [Augmentin 875-125 Tablet] 1 each PO BID 10 Days #19 tablet 04/21/19 [Rx] Past Medical History HEENT History: Reports: Allergic Rhinitis, Hard of Hearing, Impaired Vision, Otitis Media, Other (See Below) Other HEENT History: Chronic recurrent bilateral otitis media with history of chronic left-sided TM perforation with sensitivity to loud noises and some left- sided hearing loss however no hearing aide therapy, left-sided mastoiditis on 29/06 with no surgery required Cardiovascular History: Reports: Syncope Other Cardiovascular History: Obesity with fatty liver. Recurrent pseudo-near syncopal episodes and/or pseudoseizures with previous evaluations in this emergency room on 07/28/18 and 02/04/18. Respiratory History: Reports: Bronchitis, Recurrent, Sleep Apnea, Other (See Below) Other Respiratory History: Borderline pulmonary obstructive disease by chest x- ray with no current medical therapy. Moderate Obstructive sleep apnea with patient still waiting on his CPAP Gastrointestinal History: Reports: Cholelithiasis, Other (See Below) Other Gastrointestinal History: Fatty liver by ultrasound, nonsymptomatic cholelithiasis/sludge Genitourinary History: Reports: None Musculoskeletal History: Reports: Arthritis, Back Pain, Chronic, Fracture, Gout , Neck Pain, Chronic, Osteoarthritis, Other (See Below) Other Musculoskeletal History: Right fifth metatarsal fracture on 01/11/10 Neurological History: Reports: Headaches, Chronic, Migraines, Seizure, Other ( See Below) Other Neuro History: Chronic tension headaches, autism. Recurrent pseudoseizures as above. Psychiatric History: Reports: ADHD, Anxiety, Autism, Depression, Emotional Problems, Psych Hospitalization(s), Suicide Attempt, Suicidal Ideation, Other ( See Below) Other Psychiatric History: Autism with mental deficits/mild retardation, prazosin therapy for nightmares seldom required; history of suicidal ideation and attempt on 09/29/11 with inpatient psychiatric care Endocrine/Metabolic History: Reports: Diabetes, Type II, Hypothyroidism, Obesity /BMI 30+, Other (See Below) Hematologic History: Reports: Other (See Below) Other Hematologic History: Microcytosis with no anemia. 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, tonsillectomy and adenoidectomy in early childhood associate teacher, nasal/ sinus surgery with possible cauterization secondary to snoring in early childhood associate teacher, strabismus correction in early childhood associate teacher, Victor teeth extraction Cardiovascular Surgical History: Reports: None Respiratory Surgical History: Reports: None GI Surgical History: Reports: None Male Surgical History: Reports: Circumcision, Other (See Below) Other Male Surgeries/Procedures: Circumcision as an Endocrine Surgical History: Reports: None Neurological Surgical History: Reports: None Musculoskeletal Surgical History: Reports: None Oncologic Surgical History: Reports: None Dermatological Surgical History: Reports: None - Past Imaging History Past Imaging History: Reports: CAT Scan (CT of the chest on 08/31/18. CT of the head, cervical spine, and lumbar spine on 08/08/18. CT of the head on 02/04/18. CT of the maxillofacial region on 11/27/10, CTA of the brain on 08/06/11), HIDA Scan ( Negative HIDA scan on 09/23/18), Sleep Study (Positive sleep study on 08/24/18), Ultrasound (Abdominal ultrasound on 07/23/15, renal ultrasound on 11/29/10) Social & Family History - Family History Respiratory: Reports: Sleep Apnea, Other (See Below) Other Respiratory Family Hisory: Mother with sleep apnea - Caffeine Use Caffeine Use: Reports: Soda Caffeine Use Comment: soda - Living Situation & Occupation Living situation: Reports: Single (No children), Alone (Part-time caregiver as below) Occupation: Employed (Part-time at [employer]. Autism and secondary mental disability with caregiver) ED ROS GENERAL - Review of Systems Review Of Systems: ROS reveals no pertinent complaints other than HPI. ED EXAM, GENERAL - Physical Exam Exam: See Below Exam Limited By: No Limitations General Appearance: Alert, No Apparent Distress, Obese Eye Exam: Bilateral Eye: Other (Pupils equal/round/reactive. Patient refused to look up/down saying it made him dizzy. Able to look side to side without issue) Ears: Normal External Exam, Normal Canal, Hearing Grossly Normal Nose: No: Nasal Deformity, Nasal Swelling, Nasal Drainage Throat/Mouth: Normal Lips, Normal Voice, No Airway Compromise Head: Atraumatic, Normocephalic Neck: Supple, Other (Patient complained of pain with any palpation of cervical spine and surround soft tissue bilaterally. Nonfocal. Able to touch chin to chest however. ). No: Lymphadenopathy (L), Lymphadenopathy (R) Respiratory/Chest: No Respiratory Distress, Lungs Clear, Normal Breath Sounds, No Accessory Muscle Use, Chest Non-Tender Cardiovascular: Regular Rate, Rhythm, No Murmur GI/Abdominal: Normal Bowel Sounds, Soft, Non-Tender, No Distention (Male) Exam: Deferred Rectal (Males) Exam: Deferred Back Exam: No: CVA Tenderness (L), CVA Tenderness (R), Muscle Spasm, Paraspinal Tenderness, Vertebral Tenderness Extremities: Normal Range of Motion, Non-Tender, Normal Capillary Refill Neurological: Alert, Oriented, Normal Cognition (for patient), Normal Reflexes, No Motor/Sensory Deficits, Other (sensation grossly intact and symmetric bilat upper/lower limbs) Psychiatric: Normal Affect, Normal Mood Skin Exam: Warm, Dry, Intact, Normal Color Course - Vital Signs Last Recorded V/S: Last Vital Signs Temp 36.4 C 05/10/19 21:45 Pulse 85 05/11/19 01:55 Resp 18 05/11/19 01:55 BP 132/78 05/11/19 01:55 Pulse Ox 98 05/11/19 01:55 - Orders/Labs/Meds Orders: Active Orders 24 hr Category Date Time Status Cervical Spine wo Cont [CT] Stat Exams 05/10/19 22:16 Taken Head wo Cont [CT] Stat Exams 05/10/19 22:15 Taken Saline Lock Insert [OM.PC] Routine Oth 05/10/19 22:52 Ordered Labs: Laboratory Tests 05/10/19 05/10/19 05/10/19 Range/Units 20:20 22:04 22:20 WBC 10.1 (4.0-10.2) K/uL RBC 5.39 (4.33-5.41) M/uL Hgb 14.3 (13.1-16.8) g/dL Hct 43.1 (39.0-49.0) % MCV 80.0 L (84.0-98.0) fL MCH 26.5 L (28.2-33.3) pg MCHC 33.2 (31.7-36.0) g/dL RDW 15.3 H (11.2-14.1) % Plt Count 193 (150-350) K/uL Neut % (Auto) 59.5 (45.0-80.0) % Lymph % (Auto) 30.5 (10.0-50.0) % Tama % (Auto) 6.0 (2.0-14.0) % Eos % (Auto) 3.6 (0.0-5.0) % Baso % (Auto) 0.4 (0.0-2.0) % Neut # (Auto) 6.00 (1.40-7.00) K/uL Lymph # (Auto) 3.08 (0.50-3.50) K/uL Tama # (Auto) 0.61 (0.00-1.00) K/uL Eos # (Auto) 0.36 (0.00-0.50) K/uL Baso # (Auto) 0.04 (0.00-0.20) K/uL Sodium 142 (136-145) mmol/L Potassium 3.6 (3.5-5.1) mmol/L Chloride 102 (98-107) mmol/L Carbon Dioxide 27.6 (21.0-32.0) mmol/L BUN 13 (7-18) mg/dL Creatinine 0.64 (0.51-1.17) mg/dL Est Cr Clr Drug Dosing 166.40 mL/min Estimated GFR (MDRD) > 60 mL/min Glucose 149 H (74-106) mg/dL Lactic Acid (0.4-2.0) mmol/L Calcium 9.3 (8.5-10.1) mg/dL Magnesium 1.6 L (1.8-2.4) mg/dL Total Bilirubin 0.2 (0.2-1.0) mg/dL AST 61 H (15-37) U/L ALT 73 (12-78) U/L Alkaline Phosphatase 107 (46-116) IU/L Total Protein 7.2 (6.4-8.2) g/dL Albumin 3.6 (3.4-5.0) g/dL Specimen Type Urinblad Urine Color Dark yellow Urine Appearance Clear Urine pH 5.0 (5.0-9.0) Ur Specific [place] >= 1.030 (1.005-1.030) Urine Protein Negative (NEGATIVE) mg/dL Urine Glucose (UA) Negative (NEGATIVE) mg/dL Urine Ketones Trace H (NEGATIVE) mg/dL Urine Occult Blood Negative (NEGATIVE) Urine Nitrite Negative (NEGATIVE) Urine Bilirubin Small H (NEGATIVE) Urine Urobilinogen 0.2 (0.2-1.0) E.U./dL Ur Leukocyte Esterase Negative (NEGATIVE) Urine RBC 0-5 /HPF Urine WBC 0-5 /HPF Ur Epithelial Cells Few /LPF Other Crystals Few /HPF Urine Bacteria Not seen (NONE TO FEW) /HPF Urine Mucus Many H (NEGATIVE) /LPF 05/10/19 Range/Units 22:20 WBC (4.0-10.2) K/uL RBC (4.33-5.41) M/uL Hgb (13.1-16.8) g/dL Hct (39.0-49.0) % MCV (84.0-98.0) fL MCH (28.2-33.3) pg MCHC (31.7-36.0) g/dL RDW (11.2-14.1) % Plt Count (150-350) K/uL Neut % (Auto) (45.0-80.0) % Lymph % (Auto) (10.0-50.0) % Tama % (Auto) (2.0-14.0) % Eos % (Auto) (0.0-5.0) % Baso % (Auto) (0.0-2.0) % Neut # (Auto) (1.40-7.00) K/uL Lymph # (Auto) (0.50-3.50) K/uL Tama # (Auto) (0.00-1.00) K/uL Eos # (Auto) (0.00-0.50) K/uL Baso # (Auto) (0.00-0.20) K/uL Sodium (136-145) mmol/L Potassium (3.5-5.1) mmol/L Chloride (98-107) mmol/L Carbon Dioxide (21.0-32.0) mmol/L BUN (7-18) mg/dL Creatinine (0.51-1.17) mg/dL Est Cr Clr Drug Dosing mL/min Estimated GFR (MDRD) mL/min Glucose (74-106) mg/dL Lactic Acid 1.6 (0.4-2.0) mmol/L Calcium (8.5-10.1) mg/dL Magnesium (1.8-2.4) mg/dL Total Bilirubin (0.2-1.0) mg/dL AST (15-37) U/L ALT (12-78) U/L Alkaline Phosphatase (46-116) IU/L Total Protein (6.4-8.2) g/dL Albumin (3.4-5.0) g/dL Specimen Type Urine Color Urine Appearance Urine pH (5.0-9.0) Ur Specific [place] (1.005-1.030) Urine Protein (NEGATIVE) mg/dL Urine Glucose (UA) (NEGATIVE) mg/dL Urine Ketones (NEGATIVE) mg/dL Urine Occult Blood (NEGATIVE) Urine Nitrite (NEGATIVE) Urine Bilirubin (NEGATIVE) Urine Urobilinogen (0.2-1.0) E.U./dL Ur Leukocyte Esterase (NEGATIVE) Urine RBC /HPF Urine WBC /HPF Ur Epithelial Cells /LPF Other Crystals /HPF Urine Bacteria (NONE TO FEW) /HPF Urine Mucus (NEGATIVE) /LPF Meds: Medications Discontinued Medications Generic Name Dose Route Start Last Admin Trade Name Freq PRN Reason Stop Dose Admin Acetaminophen 650 mg 05/10/19 23:13 05/10/19 23:20 Tylenol PO 05/10/19 23:14 650 mg NOW ONE Administration Haloperidol Lactate 5 mg 05/11/19 00:11 05/11/19 00:29 Haldol IVPUSH 05/11/19 00:12 5 mg ONETIME ONE Administration Magnesium Sulfate/Dextrose 1 100 mls @ 100 mls/hr 05/10/19 22:50 05/10/19 23: 13 gm/ Premix IV 05/10/19 23:49 100 mls/hr ONETIME ONE Administration Promethazine HCl 12.5 mg/ 100.5 mls @ 400 mls/hr 05/11/19 00:26 05/11/19 01: 00 Sodium Chloride IV 05/11/19 00:41 400 mls/hr ONETIME ONE Administration Sodium Chloride 500 mls @ 999 mls/hr 05/11/19 01:00 05/11/19 01:20 Normal Saline IV 999 mls/hr .BOLUS ISABELLE Administration Ketorolac Tromethamine 60 mg 05/11/19 00:00 05/11/19 01:26 Toradol IM 05/11/19 00:01 Not Given ONETIME ONE Ketorolac Tromethamine 30 mg 05/11/19 00:01 05/11/19 00:30 Toradol IVPUSH 05/11/19 00:02 30 mg ONETIME ONE Administration Meclizine HCl 25 mg 05/10/19 22:49 05/10/19 23:01 Antivert PO 05/10/19 22:50 25 mg ONETIME ONE Administration Sodium Chloride 10 ml 05/10/19 22:51 Saline Flush FLUSH ASDIRECTED PRN Keep Vein Open Sumatriptan Succinate 6 mg 05/11/19 01:37 05/11/19 01:40 Imitrex SUBCUT 05/11/19 01:38 Not Given ONETIME ONE - Re-Assessments/Exams Free Text/Narrative Re-Assessment/Exam: Patient and patient's mother extremely anxious about his head and neck complaint and wanted CT performed given the worsening pain in the head and neck area. Risks of repeated CTs were reviewed with them for future consideration ( cancer risks). Labs obtained. WBC normal as was lactic acid. UA overall unremarkable. Chem showed elevated blood sugar and decreased Mg. Mag deficiency discussed with patient and mom, including effect on migraines and muscle pain. Oral supplementation recommended. IV Mag given to jump start replenishment. Meclizine and Tylenol given. Uncertain if this is exacerbation of patient's baseline chronic headaches and neck pain, or anxiety/attention-seeking behavior, or something unrelated. Free Text/Narrative Re-Assessment/Exam: 05/11/19 00:49 Discussed patient with from [facility] as patient and patient's mother wished to be evaluated there. CT of head and neck/labs overall unremarkable. He was able to pull pt's record and they have similar notations concerning past medical history including chronic headaches and neck pain. Given current history/exam, he felt that MRI would not be warranted. Meningitis also felt to be very unlikely given lack of fevers/normal WBC/ ability to touch chin to chest. Recommended trying Haldol to see if it helped headache/neck pain complaint. Patient noted to get very agitated when a second patient came into the room for evaluation and took nurse's attention away. Patient started to sit up/scream/swear/cry while continuing to complain of pain. He would greatly improve behavior if staff returned to his bedside and engage in conversation. He then had a large emesis. Ultimately he had to be transferred to a different room while receiving the Haldol. Free Text/Narrative Re-Assessment/Exam: 05/11/19 01:32 Patient appears more comfortable, however he continues to complain of headache. Would like to go home and see how he feels over night. Precautions reviewed. Suspect migraine headache and anxiety contributing to presenting complaint. 05/11/19 17:05 Patient reported being pain free at time of discharge. Departure - Departure Time of Disposition: 02:00 Disposition: Home, Self-Care 01 Condition: Good Clinical Impression: Hypomagnesemia Chronic headache disorder Qualifiers: Headache type: unspecified Intractability: intractable Qualified Code(s): R51 - Headache - Discharge Information *PRESCRIPTION DRUG MONITORING PROGRAM REVIEWED*: Not Applicable *COPY OF PRESCRIPTION DRUG MONITORING REPORT IN PATIENT ASHLEY: Not Applicable Instructions: Hypomagnesemia, Recurrent Migraine Headache, [id number] Referrals: PCP,Unknown [Primary Care Provider] - Forms: ED Department Discharge Additional Instructions: Rest. Stay hydrated. Observe for changes. Follow up as needed if things worsen /change. Discuss possible referral to physical therapy as well as chronic pain management from your primary provider. - My Orders Last 24 Hours: My Active Orders 05/10/19 22:15 Head wo Cont [CT] Stat 05/10/19 22:16 Cervical Spine wo Cont [CT] Stat 05/10/19 22:52 Saline Lock Insert [OM.PC] Routine - Assessment/Plan Last 24 Hours: My Active Orders 05/10/19 22:15 Head wo Cont [CT] Stat 05/10/19 22:16 Cervical Spine wo Cont [CT] Stat 05/10/19 22:52 Saline Lock Insert [OM.PC] Routine
[2019-05-10] MEDS: Acetaminophen 325 MG Tab PO ONE (23:20)
[2019-05-11] MEDS: Haloperidol Lactate 5 MG/ML SDV IVPUSH ONE (00:29)
[2019-05-11] MEDS: Ketorolac 30 MG/ML SDV IVPUSH ONE (00:30)
[2019-05-11] MEDS: Promethazine 12.5 MG in Sodium Chloride 0.9% 100 ML IV ONE (01:00)
[2019-05-11] MEDS: Sodium Chloride 0.9% 500 ML IV SCH (01:20)
[2019-05-11] MEDS: Ketorolac 60 MG/2 ML SDV IM ONE (01:26)
[2019-05-11] MEDS: SUMAtriptan 6 MG/0.5 ML SDV SUBCUT ONE (01:40)
[2019-05-11 02:35] VITALS: BP 132/78; PULSE 85
== END 2019-05-11 02:12 | disposition home or self-care (01) ==
LOC: LL.ED 21:34
DX: E83.42 Hypomagnesemia (principal); E66.9 Obesity, unspecified; F41.9 Anxiety disorder, unspecified; E11.9 Type 2 diabetes mellitus without complications; E03.9 Hypothyroidism, unspecified; F32.9 Major depressive disorder, single episode, unspecified; Z88.1 Allergy status to other antibiotic agents; Z88.5 Allergy status to narcotic agent; Z91.09 Other allergy status, other than to drugs and biological substances; Z68.42 Body mass index [BMI] 45.0-49.9, adult
CPT/HCPCS: 36415; 70450; 72125; 80053; 81001; 83605; 83735; 85025; 96361; 96365; 96367; 96375; 99284; 99284-25; A9270-GY; J1630; J1885; J2550; J3475; J7040; J7050

== ENCOUNTER 2021-12-28 19:27 | Emergency (ER) | payer MEDICARE, MEDICAID ==
[2021-12-28 19:33] VITALS: PULSE 77
[2021-12-28 22:27] VITALS: BP 137/68
== END 2021-12-28 20:05 | disposition home or self-care (01) ==
LOC: LL.ED 19:27
DX: N50.811 Right testicular pain (principal); E03.9 Hypothyroidism, unspecified; E11.9 Type 2 diabetes mellitus without complications; E66.9 Obesity, unspecified; Z68.30 Body mass index [BMI] 30.0-30.9, adult; Z79.899 Other long term (current) drug therapy; Z88.5 Allergy status to narcotic agent; Z88.1 Allergy status to other antibiotic agents
CPT/HCPCS: 99283

== ENCOUNTER 2022-01-01 22:36 | Emergency (ER) | payer MEDICARE, MEDICAID ==
[2022-01-01 23:22] LABS: ANION GAP 9.6 meq/L (7-15); CHLORIDE,CL 102 mmol/L (98-107); ESTIMATED GFR > 60 mL/min; SODIUM,NA 139 mmol/L (136-145)
[2022-01-02 00:38] VITALS: BP 125/77; PULSE 89
== END 2022-01-01 23:55 | disposition home or self-care (01) ==
LOC: LL.ED 22:36
DX: R07.89 Other chest pain (principal); E11.9 Type 2 diabetes mellitus without complications; E03.9 Hypothyroidism, unspecified; E66.9 Obesity, unspecified; Z79.82 Long term (current) use of aspirin; Z88.5 Allergy status to narcotic agent; Z88.1 Allergy status to other antibiotic agents; Z68.42 Body mass index [BMI] 45.0-49.9, adult
CPT/HCPCS: 36415; 71045; 80053; 83735; 84484; 85025; 85379; 93005; 93010; 99284; 99285-25

== ENCOUNTER 2022-04-04 07:59 | Emergency (ER) | payer MEDICARE, MEDICAID ==
[2022-04-04 08:19] VITALS: BP 143/87; PULSE 73
== END 2022-04-04 09:05 | disposition home or self-care (01) ==
LOC: LL.ED 07:59
DX: H60.91 Unspecified otitis externa, right ear (principal); E11.9 Type 2 diabetes mellitus without complications; E03.9 Hypothyroidism, unspecified; E66.9 Obesity, unspecified; Z68.30 Body mass index [BMI] 30.0-30.9, adult; Z88.1 Allergy status to other antibiotic agents; Z88.5 Allergy status to narcotic agent; Z79.899 Other long term (current) drug therapy
CPT/HCPCS: 99284

== ENCOUNTER 2022-08-04 16:31 | Emergency (ER) | payer MEDICARE, MEDICAID ==
[2022-08-04 16:37] VITALS: BP 132/84; PULSE 83
== END 2022-08-04 17:20 | disposition home or self-care (01) ==
LOC: LL.ED 16:31
DX: S03.41XA Sprain of jaw, right side, initial encounter (principal); E11.9 Type 2 diabetes mellitus without complications; F41.9 Anxiety disorder, unspecified; F32.A Depression, unspecified; E03.9 Hypothyroidism, unspecified; Z88.5 Allergy status to narcotic agent; Z88.1 Allergy status to other antibiotic agents; Z79.899 Other long term (current) drug therapy
CPT/HCPCS: 99283

== ENCOUNTER 2022-11-19 22:28 | Emergency (ER) | payer MEDICARE, MEDICAID ==
[2022-11-19 22:47] VITALS: BP 160/95; PULSE 81
== END 2022-11-19 23:15 | disposition home or self-care (01) ==
LOC: LL.ED 22:28
DX: H92.01 Otalgia, right ear (principal); F68.A Factitious disorder imposed on another; E11.9 Type 2 diabetes mellitus without complications; E03.9 Hypothyroidism, unspecified; E66.9 Obesity, unspecified; Z68.30 Body mass index [BMI] 30.0-30.9, adult; Z88.5 Allergy status to narcotic agent; Z88.1 Allergy status to other antibiotic agents; Z79.899 Other long term (current) drug therapy; Z72.0 Tobacco use
CPT/HCPCS: 36415; 85025; 99283; 99284

== ENCOUNTER 2022-12-24 19:05 | Emergency (ER) | payer MEDICARE, MEDICAID ==
[2022-12-24] MEDS ORDERED: Sodium Chloride 0.9% 10 ML Syringe FLUSH PRN (19:07)
[2022-12-24] MEDS ORDERED: LORazepam 2 MG/ML SDV IV ONE (19:08)
[2022-12-24 19:49] LABS: BASOPHILS ABSOLUTE AUTO 0.03 K/uL (0.00-0.20); BASOPHILS PERCENT AUTO 0.3 % (0.0-2.0); EOSINOPHILS ABSOLUTE AUTO 0.24 K/uL (0.00-0.50); EOSINOPHILS PERCENT AUTO 2.5 % (0.0-5.0); HEMATOCRIT 44.9 % (39.0-49.0); LYMPHOCYTES PERCENT AUTO 28.8 % (10.0-50.0); MEAN CORPUSCULAR HEMOGLOBIN 26.6 pg (28.2-33.3); MEAN CORPUSCULAR HGB CONC 33.4 g/dL (31.7-36.0); MEAN CORPUSCULAR VOLUME 79.8 fL (84.0-98.0); MONOCYTES ABSOLUTE AUTO 0.76 K/uL (0.00-1.00); MONOCYTES PERCENT AUTO 7.8 % (2.0-14.0); NEUTROPHILS PERCENT AUTO 60.6 % (45.0-80.0); PLATELET COUNT,PLT 186 K/uL (150-350); RED BLOOD CELL COUNT 5.63 M/uL (4.33-5.41); RED CELL DISTRIBUTION WIDTH 15.8 % (11.2-14.1); WHITE BLOOD CELL COUNT,WBC 9.7 K/uL (4.0-10.2)
[2022-12-24 20:09] LABS: ALANINE AMINOTRANSFERASE,ALT 59 U/L (12-78); ALBUMIN 3.8 g/dL (3.4-5.0); ALKALINE PHOSPHATASE 84 IU/L (46-116); ASPARTATE AMNIOTRANSFERASE,AST 34 U/L (15-37); BILIRUBIN TOTAL 0.3 mg/dL (0.2-1.0); BLOOD UREA NITROGEN,BUN 18 mg/dL (7-18); CALCIUM 9.1 mg/dL (8.5-10.1); CHLORIDE,CL 104 mmol/L (98-107); CREATININE 0.92 mg/dL (0.51-1.17); GLUCOSE RANDOM 128 mg/dL (70-99); POTASSIUM,K 3.7 mmol/L (3.5-5.1); PROTEIN TOTAL,TP 7.1 g/dL (6.4-8.2); SODIUM,NA 141 mmol/L (136-145)
[2022-12-24 20:10] LABS: ESTIMATED GFR 117 mL/min (>=60)
[2022-12-24 20:45] VITALS: BP 138/87; PULSE 84
== END 2022-12-24 20:32 | disposition home or self-care (01) ==
LOC: LL.ED 19:05
DX: R56.9 Unspecified convulsions (principal); Z88.5 Allergy status to narcotic agent; Z88.1 Allergy status to other antibiotic agents; Z72.0 Tobacco use
CPT/HCPCS: 36415; 70450; 80053; 85025; 96374; 99284; 99284-25; J2060; J3490

== ENCOUNTER 2023-03-03 14:43 | Emergency (ER) | payer MEDICARE, MEDICAID ==
[2023-03-03 15:49] VITALS: BP 165/116; PULSE 92
== END 2023-03-03 15:40 | disposition home or self-care (01) ==
LOC: LL.ED 14:43
DX: H92.02 Otalgia, left ear (principal); R03.0 Elevated blood-pressure reading, without diagnosis of hypertension; E11.9 Type 2 diabetes mellitus without complications; E03.9 Hypothyroidism, unspecified; F17.210 Nicotine dependence, cigarettes, uncomplicated; E66.9 Obesity, unspecified; Z88.1 Allergy status to other antibiotic agents; Z88.5 Allergy status to narcotic agent; Z79.899 Other long term (current) drug therapy
CPT/HCPCS: 99282; 99283

== ENCOUNTER 2023-06-03 16:41 | Emergency (ER) | payer MEDICAID, MEDICARE ==
[2023-06-03 16:47] VITALS: BP 143/88; PULSE 73
[2023-06-03] MEDS: Bacitracin Oint 1 GM U/D Packet TOP ONE (17:39)
[2023-06-03] MEDS: Triamcinolone Acetonide 40 MG/ML 1 ML SDV INJECT ONE (17:40)
== END 2023-06-03 17:42 | disposition home or self-care (01) ==
LOC: LL.ED 16:41
DX: L02.12 Furuncle of neck (principal); G47.33 Obstructive sleep apnea (adult) (pediatric); E03.9 Hypothyroidism, unspecified; E11.9 Type 2 diabetes mellitus without complications; E66.9 Obesity, unspecified; F17.210 Nicotine dependence, cigarettes, uncomplicated; Z68.30 Body mass index [BMI] 30.0-30.9, adult; Z88.1 Allergy status to other antibiotic agents; Z88.5 Allergy status to narcotic agent; Z79.899 Other long term (current) drug therapy
CPT/HCPCS: 99282; J3301

== ENCOUNTER 2024-02-10 11:21 | Emergency (ER) | payer MEDICARE, MEDICAID ==
[2024-02-10 11:33] VITALS: BP 162/97; PULSE 80
[2024-02-10] MEDS: Sodium Chloride 0.9% 1,000 ML IV SCH (12:04)
[2024-02-10 12:08] LABS: BASOPHILS ABSOLUTE AUTO 0.03 K/uL (0.00-0.20); BASOPHILS PERCENT AUTO 0.3 % (0.0-2.0); EOSINOPHILS ABSOLUTE AUTO 0.25 K/uL (0.00-0.50); EOSINOPHILS PERCENT AUTO 2.4 % (0.0-5.0); HEMATOCRIT 44.3 % (39.0-49.0); HEMOGLOBIN 14.7 g/dL (13.1-16.8); LYMPHOCYTES PERCENT AUTO 28.9 % (10.0-50.0); MEAN CORPUSCULAR HEMOGLOBIN 26.7 pg (28.2-33.3); MEAN CORPUSCULAR HGB CONC 33.2 g/dL (31.7-36.0); MEAN CORPUSCULAR VOLUME 80.4 fL (84.0-98.0); MONOCYTES ABSOLUTE AUTO 0.66 K/uL (0.00-1.00); MONOCYTES PERCENT AUTO 6.4 % (2.0-14.0); NEUTROPHILS ABSOLUTE AUTO 6.43 K/uL (1.40-7.00); PLATELET COUNT,PLT 180 K/uL (150-350); RED BLOOD CELL COUNT 5.51 M/uL (4.33-5.41); RED CELL DISTRIBUTION WIDTH 15.8 % (11.2-14.1); WHITE BLOOD CELL COUNT,WBC 10.4 K/uL (4.0-10.2)
[2024-02-10] MEDS: Sodium Chloride 0.9% 10 ML Syringe FLUSH PRN (12:11)
[2024-02-10] MEDS: Ondansetron 4 MG/2 ML SDV IVPUSH ONE (12:11)
[2024-02-10 12:31] LABS: ANION GAP 9.7 meq/L (7-15); BILIRUBIN TOTAL 0.5 mg/dL (0.2-1.0); CALCIUM 9.2 mg/dL (8.5-10.1); CARBON DIOXIDE,CO2 28.3 mmol/L (21.0-32.0); CREATININE 0.9 mg/dL (0.51-1.17); EST CRCL DRUG DOSING (CG) 106.3 mL/min; POTASSIUM,K 3.9 mmol/L (3.5-5.1); PROTEIN TOTAL,TP 7.3 g/dL (6.4-8.2)
== END 2024-02-10 15:30 | disposition home or self-care (01) ==
LOC: LL.ED 11:21
DX: R55 Syncope and collapse (principal); I10 Essential (primary) hypertension; F41.9 Anxiety disorder, unspecified; R10.84 Generalized abdominal pain; R19.7 Diarrhea, unspecified; E11.9 Type 2 diabetes mellitus without complications; E03.9 Hypothyroidism, unspecified; Z79.899 Other long term (current) drug therapy; Z88.5 Allergy status to narcotic agent; Z88.8 Allergy status to other drugs, medicaments and biological substances
CPT/HCPCS: 36415; 74018; 80053; 82947; 85025; 93005; 96361; 96374; 99284-25; J2405; J3490; J7030

== ENCOUNTER 2024-06-29 12:55 | Emergency (ER) | payer MEDICARE, MEDICAID ==
[2024-06-29 13:38] LABS: BASOPHILS ABSOLUTE AUTO 0.04 K/uL (0.00-0.20); BASOPHILS PERCENT AUTO 0.4 % (0.0-2.0); EOSINOPHILS ABSOLUTE AUTO 0.21 K/uL (0.00-0.50); EOSINOPHILS PERCENT AUTO 2.1 % (0.0-5.0); HEMATOCRIT 46.6 % (39.0-49.0); HEMOGLOBIN 15.1 g/dL (13.1-16.8); IMMATURE GRAN ABSOLUTE AUTO 0.02 10^3/uL (0.00-0.50); IMMATURE GRAN PERCENT AUTO 0.2 % (0.0-5.0); LYMPHOCYTES ABSOLUTE AUTO 3.14 K/uL (0.50-3.50); LYMPHOCYTES PERCENT AUTO 31.6 % (10.0-50.0); MEAN CORPUSCULAR HEMOGLOBIN 25.8 pg (28.2-33.3); MEAN CORPUSCULAR HGB CONC 32.4 g/dL (31.7-36.0); MEAN CORPUSCULAR VOLUME 79.7 fL (84.0-98.0); MONOCYTES ABSOLUTE AUTO 0.48 K/uL (0.00-1.00); MONOCYTES PERCENT AUTO 4.8 % (2.0-14.0); NEUTROPHILS ABSOLUTE AUTO 6.04 K/uL (1.40-7.00); NEUTROPHILS PERCENT AUTO 60.9 % (45.0-80.0); PLATELET COUNT,PLT 182 K/uL (150-350); RED BLOOD CELL COUNT 5.85 M/uL (4.33-5.41); RED CELL DISTRIBUTION WIDTH 15.3 % (11.2-14.1); WHITE BLOOD CELL COUNT,WBC 9.9 K/uL (4.0-10.2)
[2024-06-29 13:59] LABS: ALANINE AMINOTRANSFERASE,ALT 37 U/L (12-78); ALBUMIN 3.9 g/dL (3.4-5.0); ALKALINE PHOSPHATASE 103 IU/L (46-116); ANION GAP 9.1 meq/L (7-15); ASPARTATE AMNIOTRANSFERASE,AST 10 U/L (15-37); BILIRUBIN TOTAL 0.4 mg/dL (0.2-1.0); BLOOD UREA NITROGEN,BUN 11 mg/dL (7-18); CALCIUM 9.6 mg/dL (8.5-10.1); CARBON DIOXIDE,CO2 27.9 mmol/L (21.0-32.0); CHLORIDE,CL 103 mmol/L (98-107); CREATININE 0.91 mg/dL (0.51-1.17); GLUCOSE RANDOM 139 mg/dL (70-99); POTASSIUM,K 3.6 mmol/L (3.5-5.1); PROTEIN TOTAL,TP 7.5 g/dL (6.4-8.2); SODIUM,NA 140 mmol/L (136-145)
[2024-06-29 14:00] LABS: ESTIMATED GFR 117 mL/min (>=60)
[2024-06-29 14:20] LABS: AMPHETAMINES SCREEN, URINE NEGATIVE (NEGATIVE); BARBITURATE SCREEN,URINE NEGATIVE (NEGATIVE); BENZODIAZEPINES SCREEN,URINE NEGATIVE (NEGATIVE); COCAINE METABOLITES,URINE NEGATIVE (NEGATIVE); EDDP,URINE SCREEN NEGATIVE (NEGATIVE); METHAMPHETAMINES SCREEN, URINE NEGATIVE (NEGATIVE); TCA SCREEN,URINE NEGATIVE (NEGATIVE); THC SCREEN,URINE 50 NG/ML POSITIVE (NEGATIVE)
[2024-06-29 14:21] LABS: BUPRENORPHINE SCREEN,URINE NEGATIVE (NEGATIVE); OXYCODONE SCREEN,URINE NEGATIVE (NEGATIVE)
[2024-06-29] MEDS: busPIRone 15 MG Tab PO ONE ×2 (14:44→15:03)
[2024-06-29] MEDS: Haloperidol 5 MG Tab PO ONE (15:27)
[2024-06-29] MEDS: Haloperidol 1 MG Tab PO ONE (16:25)
[2024-06-29 16:49] VITALS: BP 143/98; PULSE 71
[2024-06-29] MEDS: Nicotine 21 MG/24 Hr Patch TRDERM ONE (17:02)
== END 2024-06-29 17:42 ==
LOC: LL.ED 12:55
DX: R45.851 Suicidal ideations (principal); R45.850 Homicidal ideations; E11.9 Type 2 diabetes mellitus without complications; Z79.899 Other long term (current) drug therapy; Z88.5 Allergy status to narcotic agent; Z88.1 Allergy status to other antibiotic agents; Z79.85 Long-term (current) use of injectable non-insulin antidiabetic drugs
CPT/HCPCS: 36415; 80053; 80143; 80305-QW; 80307; 85025; 99284; 99285; A9270-GY

== ENCOUNTER 2024-07-03 16:21 | Emergency (ER) | payer MEDICARE, MEDICAID ==
[2024-07-03 17:01] VITALS: BP 145/84; PULSE 69
[2024-07-03] MEDS: Metoprolol Succinate 25 MG Tab.ER PO STA (17:01)
== END 2024-07-03 17:13 | disposition home or self-care (01) ==
LOC: LL.ED 16:21
DX: F41.9 Anxiety disorder, unspecified (principal); I10 Essential (primary) hypertension; E11.9 Type 2 diabetes mellitus without complications; Z79.899 Other long term (current) drug therapy; Z88.1 Allergy status to other antibiotic agents; Z88.5 Allergy status to narcotic agent
CPT/HCPCS: 99283; A9270; 99284

== ENCOUNTER 2024-09-25 21:18 | Emergency (ER) | payer MEDICARE, MEDICAID ==
[2024-09-25] MEDS ORDERED: LORazepam 2 MG/ML SDV IVPUSH ONE (21:35)
[2024-09-25] MEDS: LORazepam 2 MG/ML SDV IM ONE (21:45)
[2024-09-25 21:53] LABS: BASOPHILS ABSOLUTE AUTO 0.04 K/uL (0.00-0.20); BASOPHILS PERCENT AUTO 0.4 % (0.0-2.0); EOSINOPHILS ABSOLUTE AUTO 0.16 K/uL (0.00-0.50); EOSINOPHILS PERCENT AUTO 1.7 % (0.0-5.0); HEMATOCRIT 43.6 % (39.0-49.0); HEMOGLOBIN 14.8 g/dL (13.1-16.8); IMMATURE GRAN ABSOLUTE AUTO 0.01 10^3/uL (0.00-0.04); IMMATURE GRAN PERCENT AUTO 0.1 % (0.0-0.4); LYMPHOCYTES ABSOLUTE AUTO 2.62 K/uL (0.50-3.50); LYMPHOCYTES PERCENT AUTO 27.8 % (10.0-50.0); MEAN CORPUSCULAR HEMOGLOBIN 27.4 pg (28.2-33.3); MEAN CORPUSCULAR HGB CONC 33.9 g/dL (31.7-36.0); MEAN CORPUSCULAR VOLUME 80.6 fL (84.0-98.0); MONOCYTES PERCENT AUTO 5.3 % (2.0-14.0); NEUTROPHILS ABSOLUTE AUTO 6.08 K/uL (1.40-7.00); NEUTROPHILS PERCENT AUTO 64.7 % (45.0-80.0); PLATELET COUNT,PLT 182 K/uL (150-350); RED BLOOD CELL COUNT 5.41 M/uL (4.33-5.41); RED CELL DISTRIBUTION WIDTH 15.2 % (11.2-14.1); WHITE BLOOD CELL COUNT,WBC 9.4 K/uL (4.0-10.2)
[2024-09-25 22:04] LABS: AMPHETAMINES SCREEN, URINE NEGATIVE (NEGATIVE); BARBITURATE SCREEN,URINE NEGATIVE (NEGATIVE); BENZODIAZEPINES SCREEN,URINE NEGATIVE (NEGATIVE); COCAINE METABOLITES,URINE NEGATIVE (NEGATIVE); EDDP,URINE SCREEN NEGATIVE (NEGATIVE); METHAMPHETAMINES SCREEN, URINE NEGATIVE (NEGATIVE); TCA SCREEN,URINE NEGATIVE (NEGATIVE); THC SCREEN,URINE 50 NG/ML POSITIVE (NEGATIVE)
[2024-09-25 22:05] LABS: BUPRENORPHINE SCREEN,URINE NEGATIVE (NEGATIVE); OXYCODONE SCREEN,URINE NEGATIVE (NEGATIVE)
[2024-09-25 22:08] LABS: PROTHROMBIN TIME 10.1 SEC (9.0-11.1)
[2024-09-25 22:21] LABS: ALANINE AMINOTRANSFERASE,ALT 25 U/L (12-78); ALBUMIN 4.1 g/dL (3.4-5.0); ALKALINE PHOSPHATASE 94 IU/L (46-116); ANION GAP 12.8 meq/L (7-15); ASPARTATE AMNIOTRANSFERASE,AST 14 U/L (15-37); BILIRUBIN TOTAL 0.5 mg/dL (0.2-1.0); BLOOD UREA NITROGEN,BUN 12 mg/dL (7-18); CALCIUM 9.1 mg/dL (8.5-10.1); CARBON DIOXIDE,CO2 28.2 mmol/L (21.0-32.0); CHLORIDE,CL 102 mmol/L (98-107); ETHANOL BLOOD MEDICAL 0.002 g/dL (0.000-0.080); GLUCOSE RANDOM 129 mg/dL (70-99); MAGNESIUM 1.9 mg/dL (1.8-2.4); POTASSIUM,K 3.8 mmol/L (3.5-5.1); SODIUM,NA 143 mmol/L (136-145)
[2024-09-25 22:22] LABS: ACETAMINOPHEN < 0.0 ug/mL (10.0-30.0); ESTIMATED GFR 70 mL/min (>=60)
[2024-09-26 00:34] VITALS: BP 108/53; PULSE 65
== END 2024-09-25 23:30 | disposition home or self-care (01) ==
LOC: LL.ED 21:18
DX: R46.89 Other symptoms and signs involving appearance and behavior (principal); E11.9 Type 2 diabetes mellitus without complications; Z91.148 Patient's other noncompliance with medication regimen for other reason; Z79.899 Other long term (current) drug therapy; Z79.890 Hormone replacement therapy; Z88.6 Allergy status to analgesic agent; Z88.1 Allergy status to other antibiotic agents
CPT/HCPCS: 36415; 80053; 80143; 80305-QW; 80307; 83735; 85025; 85610; 87428-QW; 96372; 99285; J2060